=== PATIENT | female | born 1935 | race Caucasian/White ===

== ENCOUNTER 2019-05-30 18:41 | Emergency (ER) | payer MEDICARE, OTHER ==
[~2019-05-30] VITALS: Ht 168 cm; Wt 72.0 kg
--- NOTE | 2019-05-30 18:56 | ED Chest Pain ---
General Chief Complaint: Cardiac/General Problems Stated Complaint: CHEST PAIN Source: patient, EMS Exam Limitations: no limitations History of Present Illness Date Seen by Provider: May 30, 2019 Time Seen by Provider: 18:53 Initial Comments 1 hour prior to arrival patient states she "felt funny". Described feeling flushed sensation in her chest and got hot. Thought maybe her heart rate was fast or irregular, denied chest pain or shortness of air or abdominal pain. Denies nausea vomiting. States she was just getting ready for dinner. On arrival patient states she is feeling better, just a little dizzy from the ambulance ride. Allergies and Home Medications Allergies Coded Allergies: penicillin G (Verified Allergy, Unknown, 05/30/19) Home Medications Potassium Chloride 20 Meq Tablet.er, 20 MEQ PO DAILY Prescribed by: TRINI CLAY on 05/30/191938 Patient Home Medication List Home Medication List Reviewed: Yes Review of Systems Review of Systems Constitutional: see HPI, diaphoresis, dizziness; No fever, No malaise, No weakness, No weight gain, No weight loss Respiratory: No Symptoms Reported, See HPI; Denies Cough, Denies Orthopnea, Denies Shortness of Air, Denies SOA With Exertion, Denies SOA at Rest, Denies Stridor, Denies Wheezing, Denies Other Cardiovascular: See HPI; Denies Chest Pain, Denies Edema; Irregular Heart Rate; Denies Lightheadedness; Palpitations; Denies Syncope Gastrointestinal: No Symptoms Reported, See HPI; Denies Abdominal Pain, Denies Constipated, Denies Diarrhea, Denies Nausea, Denies Vomiting Musculoskeletal: no symptoms reported, see HPI; No back pain, No joint pain Skin: No lesions, No rash Past Gcxuvsp-Ypzbau-Quvkcv Hx Past Med/Social Hx: Reviewed Nursing Past Med/Soc Hx Patient Social History Alcohol Use: Denies Use Recreational Drug Use: No Smoking Status: Never a Smoker 2nd Hand Smoke Exposure: No Physical Abuse: No Sexual Abuse: No Mistreated: No Fear: No Seasonal Allergies Seasonal Allergies: No Past Medical History Respiratory: No Cardiac: Yes Atrial Fibrillation, High Cholesterol, Hypertension Neurological: No Genitourinary: No Gastrointestinal: No Musculoskeletal: No Endocrine: No HEENT: No Cancer: No Psychosocial: No Blood Disorders: No Physical Exam Vital Signs Vital Signs - First Documented 05/30/19 18:43 Temp 36.3 Pulse 104 Resp 15 B/P (MAP) 127/73 (91) Pulse Ox 93 O2 Delivery Room Air Capillary Refill : Height, Weight, BMI Height: '" Weight: lbs. oz. kg; BMI Method: General Appearance: No Apparent Distress, WD/WN Respiratory: Chest Non Tender, Lungs Clear, Normal Breath Sounds, No Accessory Muscle Use, No Respiratory Distress Cardiovascular: Regular Rate, Rhythm, No Edema, No Gallop, No JVD, No Murmur, Normal Peripheral Pulses Gastrointestinal: Normal Bowel Sounds, No Organomegaly, No Pulsatile Mass, Non Tender Extremity: Normal Capillary Refill, Normal Inspection, Normal Range of Motion, Non Tender, No Calf Tenderness, No Pedal Edema Neurologic/Psychiatric: Alert, Oriented x3, Normal Mood/Affect Progress/Results/Core Measures Results/Orders Lab Results Laboratory Tests Test 05/30/19 18:40 Range/Units White Blood Count 9.9 4.3-11.0 10^3/uL Red Blood Count 4.77 4.35-5.85 10^6/uL Hemoglobin 14.7 11.5-16.0 G/DL Hematocrit 45 35-52 % Mean Corpuscular Volume 94 80-99 FL Mean Corpuscular Hemoglobin 31 25-34 PG Mean Corpuscular Hemoglobin Concent 33 32-36 G/DL Red Cell Distribution Width 14.3 10.0-14.5 % Platelet Count 238 130-400 10^3/uL Mean Platelet Volume 11.2 H 7.4-10.4 FL Neutrophils (%) (Auto) 42 42-75 % Lymphocytes (%) (Auto) 42 12-44 % Monocytes (%) (Auto) 13 H 0-12 % Eosinophils (%) (Auto) 3 0-10 % Basophils (%) (Auto) 0 0-10 % Neutrophils # (Auto) 4.1 1.8-7.8 X 10^3 Lymphocytes # (Auto) 4.2 H 1.0-4.0 X 10^3 Monocytes # (Auto) 1.3 H 0.0-1.0 X 10^3 Eosinophils # (Auto) 0.3 0.0-0.3 10^3/uL Basophils # (Auto) 0.0 0.0-0.1 10^3/uL Prothrombin Time 21.9 H 12.2-14.7 SEC INR Comment 1.8 H 0.8-1.4 Sodium Level 136 135-145 MMOL/L Potassium Level 2.8 L 3.6-5.0 MMOL/L Chloride Level 95 L 98-107 MMOL/L Carbon Dioxide Level 25 21-32 MMOL/L Anion Gap 16 H 5-14 MMOL/L Blood Urea Nitrogen 22 H 7-18 MG/DL Creatinine 0.70 0.60-1.30 MG/DL Estimat Glomerular Filtration Rate > 60 BUN/Creatinine Ratio 31 Glucose Level 95 70-105 MG/DL Calcium Level 10.0 8.5-10.1 MG/DL Corrected Calcium 9.8 8.5-10.1 MG/DL Total Bilirubin 0.5 0.1-1.0 MG/DL Aspartate Amino Transf (AST/SGOT) 23 5-34 U/L Alanine Aminotransferase (ALT/SGPT) 11 0-55 U/L Alkaline Phosphatase 89 40-136 U/L Troponin I < 0.30 <0.30 NG/ML Total Protein 7.6 6.4-8.2 GM/DL Albumin 4.3 3.2-4.5 GM/DL My Orders Orders - ROVENSTINE,TRINI L DO Ed Iv/Invasive Line Start (05/30/19 18:52) Cbc With Automated Diff (05/30/19 18:52) Comprehensive Metabolic Panel (05/30/19 18:52) Protime With Inr (05/30/19 18:52) Troponin I (05/30/19 18:52) Chest 1 View Ap/Pa Only (05/30/19 18:52) Ekg Tracing (05/30/19 18:52) Potassium Chloride (Tablet) (K Dur Table (05/30/19 19:30) Medications Given in ED Vital Signs/I&O 05/30/19 05/30/19 18:43 20:08 Temp 36.3 Pulse 104 65 Resp 15 16 B/P (MAP) 127/73 (91) 118/71 Pulse Ox 93 97 O2 Delivery Room Air Room Air Initial ECG Impression Date: May 30, 2019 Initial ECG Impression Time: 19:00 Initial ECG Rate: 69 Initial ECG Rhythm: A Fib/Flutter Initial ECG Impression: Atrial Fibrillation Initial ECG Comparisson: No Previous ECG Available Departure Impression Primary Impression: Atrial fibrillation Qualified Codes: I48.2 - Chronic atrial fibrillation Additional Impressions: Palpitations Hypokalemia Disposition: 01 HOME, SELF-CARE Condition: Improved Departure-Patient Inst. Decision time for Depature: 19:39 Patient Instructions: Hypokalemia, High Potassium Diet, Atrial Fibrillation (DC) Add. Discharge Instructions: All discharge instructions reviewed with patient and/or family. Voiced understanding. Advised to see Primary Care Provider in 1 week to for re-evaluation and to repeat labs chemistry for low K. Scripts Potassium Chloride (K-Tab ER) 20 Meq Tablet.er 20 MEQ PO DAILY, #7 TAB Prov: TRINI CLAY DO 05/30/19 TRINI CLAY DO May 30, 2019 18:56
[2019-05-30 18:59] LABS: BASOPHILS % (AUTO) 0 % (0-10); EOSINOPHILS # (AUTO) 0.3 10^3/uL (0.0-0.3); EOSINOPHILS % (AUTO) 3 % (0-10); HEMATOCRIT 45 % (35-52); HEMOGLOBIN 14.7 G/DL (11.5-16.0); LYMPHOCYTES # (AUTO) 4.2 X 10^3 (1.0-4.0); LYMPHOCYTES % (AUTO) 42 % (12-44); MEAN CORPUSCULAR HEMOGLOBIN 31 PG (25-34); MEAN CORPUSCULAR HGB CONC 33 G/DL (32-36); MEAN CORPUSCULAR VOLUME 94 FL (80-99); MEAN PLATELET VOLUME 11.2 FL (7.4-10.4); MONOCYTES # (AUTO) 1.3 X 10^3 (0.0-1.0); MONOCYTES % (AUTO) 13 % (0-12); NEUTROPHILS # (AUTO) 4.1 X 10^3 (1.8-7.8); NEUTROPHILS % (AUTO) 42 % (42-75); PLATELET COUNT 238 10^3/uL (130-400); RED CELL DISTRIBUTION WIDTH 14.3 % (10.0-14.5); WHITE BLOOD COUNT 9.9 10^3/uL (4.3-11.0)
[2019-05-30 19:12] LABS: ALANINE AMINOTRANSFERASE 11 U/L (0-55); ALBUMIN 4.3 GM/DL (3.2-4.5); ALKALINE PHOSPHATASE 89 U/L (40-136); BILIRUBIN,TOTAL 0.5 MG/DL (0.1-1.0); BUN/CREATININE RATIO 31; CARBON DIOXIDE 25 MMOL/L (21-32); CHLORIDE 95 MMOL/L (98-107); GFR ESTIMATED > 60; GLUCOSE 95 MG/DL (70-105); INR 1.8 (0.8-1.4); POTASSIUM 2.8 MMOL/L (3.6-5.0); PROTHROMBIN TIME PATIENT 21.9 SEC (12.2-14.7); SODIUM 136 MMOL/L (135-145); TOTAL PROTEIN 7.6 GM/DL (6.4-8.2)
--- NOTE | 2019-05-30 19:21 | Diagnostic Imaging Report ---
INDICATION: Chest pain. TECHNIQUE: Single view chest 6:45 PM. CORRELATION STUDY: None FINDINGS: Heart is enlarged with a rounded configuration. Vasculature overall within normal limits. Streaky areas of atelectasis and/r scarring about the left mid to lower lung field. No definitive consolidating infiltrate. No effusion. IMPRESSION: 1. Cardiac enlargement without overt failure. Atelectasis and scarring at the left mid to lower lung field. Dictated by: Dictated on workstation # [id number]
[2019-05-30] MEDS ORDERED: KCL 20 MEQ TAB (K-DUR) PO ONE (19:30)
[2019-05-30] MEDS ORDERED: POTA-53 PO (19:39)
--- NOTE | 2019-05-30 19:49 | NUR ---
PT STATES SHE WAS HUNGRY AND HAD NOT EATEN ALL DAY. WITH PROVIDER APPROVAL, PT GIVEN SANDWICH.
[2019-05-30 20:08] VITALS: BP 118/71
== END 2019-05-30 20:08 | disposition home or self-care (01) ==
LOC: ER FS 18:43
DX: I48.91 Unspecified atrial fibrillation (principal); E87.6 Hypokalemia; I10 Essential (primary) hypertension; E78.00 Pure hypercholesterolemia, unspecified; Z88.0 Allergy status to penicillin
CPT/HCPCS: 36415; 71045; 80053; 84484; 85025; 85610; 93005

== ENCOUNTER 2019-11-20 19:05 | Emergency (ER) | payer MEDICARE, OTHER ==
[~2019-11-20] VITALS: Ht 167.7 cm; Wt 81.3 kg
[~2019-11-20 19:05] MED LIST: POTA-53 PO
[2019-11-20] MEDS ORDERED: NS IV 1000 ML 1,000 ML IV STA ×2 (19:25→20:00)
[2019-11-20] MEDS ORDERED: PANTOPRAZOLE 40 MG (PROTONIX) VIAL IV STA (19:25)
[2019-11-20] MEDS ORDERED: ONDANSETRON 4 MG/2 ML (SDV) Z0FRAN IVP STA ×2 (19:25→20:41)
--- NOTE | 2019-11-20 19:33 | ED GI ---
General Chief Complaint: Abdominal/GI Problems Stated Complaint: STOMACH VIRUS, VOMITING Source of Information: Patient, Family History of Present Illness Date Seen by Provider: Nov 20, 2019 Time Seen by Provider: 19:09 Initial Comments 84-year-old female presenting with complaints of nausea and vomiting since Monday night. She states that she is not kept her description medications down since Monday. She takes blood thinners as well as blood pressure medications for high blood pressure, atrial fibrillation, anticoagulation. She recently had a UTI plan had at least a day of antibiotics left on that. She denies any pain with urination. She denies any diarrhea. She has not been able to drink water without vomiting. She was having trouble even eating crackers. She did not try to contact her doctor or through the clinic. Her family finally brought her into the emergency department this evening. Allergies and Home Medications Allergies Coded Allergies: penicillin G (Verified Allergy, Unknown, 05/30/19) Home Medications Ondansetron 4 Mg Tab.rapdis, 4 MG PO Q6H PRN for NAUSEA/VOMITING Prescribed by: WIN LANDRY on 11/20/192045 Potassium Chloride 20 Meq Tablet.er, 20 MEQ PO DAILY Prescribed by: TRINI CLAY on 05/30/19 193 Patient Home Medication List Home Medication List Reviewed: Yes Review of Systems Review of Systems Constitutional: No chills, No diaphoresis; dizziness (with standing); No fever; malaise, weakness EENTM: No Double Vision, No Nose Congestion Respiratory: Cough (dry) Cardiovascular: Denies Chest Pain Gastrointestinal: Abdominal Pain (mild epigastric); Denies Constipated, Denies Diarrhea; Nausea, Poor Appetite, Poor Fluid Intake, Vomiting Genitourinary: Denies Burning, Denies Discharge, Denies Pain Musculoskeletal: no symptoms reported Skin: no symptoms reported Psychiatric/Neurological: Anxiety Endocrine: No Symptoms Reported Past Qefpzho-Miacxt-Wwkvas Hx Past Med/Social Hx: Reviewed Nursing Past Med/Soc Hx Patient Social History 2nd Hand Smoke Exposure: No Recent Foreign Travel: No Contact w/Someone Who Travel: No Seasonal Allergies Seasonal Allergies: No Past Medical History Surgeries: Yes Gallbladder Respiratory: No Cardiac: Yes Atrial Fibrillation, High Cholesterol, Hypertension Neurological: No Genitourinary: No Gastrointestinal: No Musculoskeletal: No Endocrine: No HEENT: No Cancer: No Psychosocial: No Blood Disorders: No Physical Exam Vital Signs Vital Signs - First Documented 3/11/20 19:10 Temp 36.8 Pulse 93 Resp 18 B/P (MAP) 147/92 (110) Pulse Ox 95 O2 Delivery Room Air Capillary Refill : Height/Weight/BMI Height: '" Weight: lbs. oz. 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 international II-XII nml as tested, no motor/sensory deficits, alert, oriented x 3 Skin: normal color, warm/dry Progress/Results/Core Measures Results/Orders Lab Results Laboratory Tests Test 11/20/19 19:25 Range/Units White Blood Count 10.2 4.3-11.0 10^3/uL Red Blood Count 5.43 4.35-5.85 10^6/uL Hemoglobin 16.7 H 11.5-16.0 G/DL Hematocrit 50 35-52 % Mean Corpuscular Volume 92 80-99 FL Mean Corpuscular Hemoglobin 31 25-34 PG Mean Corpuscular Hemoglobin Concent 34 32-36 G/DL Red Cell Distribution Width 15.3 H 10.0-14.5 % Platelet Count 263 130-400 10^3/uL Mean Platelet Volume 10.9 H 7.4-10.4 FL Neutrophils (%) (Auto) 79 H 42-75 % Lymphocytes (%) (Auto) 14 12-44 % Monocytes (%) (Auto) 7 0-12 % Eosinophils (%) (Auto) 0 0-10 % Basophils (%) (Auto) 0 0-10 % Neutrophils # (Auto) 8.0 H 1.8-7.8 X 10^3 Lymphocytes # (Auto) 1.4 1.0-4.0 X 10^3 Monocytes # (Auto) 0.7 0.0-1.0 X 10^3 Eosinophils # (Auto) 0.0 0.0-0.3 10^3/uL Basophils # (Auto) 0.0 0.0-0.1 10^3/uL Prothrombin Time 19.2 H 12.2-14.7 SEC INR Comment 1.6 H 0.8-1.4 Activated Partial Thromboplast Time 31 24-35 SEC Sodium Level 135 135-145 MMOL/L Potassium Level 3.2 L 3.6-5.0 MMOL/L Chloride Level 94 L 98-107 MMOL/L Carbon Dioxide Level 19 L 21-32 MMOL/L Anion Gap 22 H 5-14 MMOL/L Blood Urea Nitrogen 19 H 7-18 MG/DL Creatinine 0.91 0.60-1.30 MG/DL Estimat Glomerular Filtration Rate 59 BUN/Creatinine Ratio 21 Glucose Level 174 H 70-105 MG/DL Calcium Level 10.5 H 8.5-10.1 MG/DL Corrected Calcium 10.2 H 8.5-10.1 MG/DL Total Bilirubin 1.0 0.1-1.0 MG/DL Aspartate Amino Transf (AST/SGOT) 19 5-34 U/L Alanine Aminotransferase (ALT/SGPT) 11 0-55 U/L Alkaline Phosphatase 86 40-136 U/L Total Protein 7.9 6.4-8.2 GM/DL Albumin 4.4 3.2-4.5 GM/DL Lipase 15 8-78 U/L My Orders Orders - WIN LANDRY MD Comprehensive Metabolic Panel (11/20/19:) Lipase (11/20/19:25) Ua Culture If Indicated (11/20/19:) Ed Iv/Invasive Line Start (11/20/19) Cbc With Automated Diff (11/20/19) Protime With Inr (11/20/19) Partial Thromboplastin Time (11/20/19:) Continuous Ekg Monitoring (11/20/19) Ekg Tracing (11/20/19) Acute Abd Series (11/20/19) Pantoprazole Injection (Protonix Injecti (11/20/19:) Ondansetron Injection (Zofran Injectio (11/20/19:) Ns Iv 1000 Ml (Sodium Chloride 0.9%) (3/11/20 19:25) Ns Iv 1000 Ml (Sodium Chloride 0.9%) (11/20/19 20:00) Metoprolol Tartrate Injection (Lopressor (11/20/19 20:41) Ondansetron Injection (Zofran Injectio (11/20/19 20:41) Rx-Ondansetron Po (Rx-Zofran Po) (11/20/19 20:45) Medications Given in ED Current Medications Medications Dose Ordered Sig/Maranda Route Start Time Stop Time Status Last Admin Dose Admin Ondansetron HCl 4 mg Q6H PRN PO 11/20/19 20:45 11/20/19 21:01 DC 11/20/19 20:59 4 MG Vital Signs/I&O 11/20/19 11/20/19 19:10 20:59 Temp 36.8 36.4 Pulse 93 88 Resp 18 18 B/P (MAP) 147/92 (110) 160/75 Pulse Ox 95 93 O2 Delivery Room Air Room Air 11/21/19 00:00 Intake Total 2000 ml Balance 2000 ml Progress Progress Note #1: Progress Note obtain basic labs and urine when she can provide a sample. acute abdomen series to evaluate bowel gas pattern and amount of stool. Give IV fluids for hydration, Zofran for nausea, Protonix for epigastric tenderness and nausea and vomiting since Monday, so she likely has some gastritis as well. Progress Note #2: Time: 20:14 Progress Note CBC does not show an elevation of WBC count. Coags show her INR is slightly low at 1.6. her chemistry panel shows mild elevation of her glucose to 176. Her Lipase and LFTs are normal. No acute signficant abnormality to account for her n/v. Her Potassium is slightly low to go along with her vomiting. Acute abdomen series shows increased amount of stool but no obstruction or blockage. She has tolerated ice chips here in the ED after treatment. She is getting a 2nd L of NS for hydration and will see if she can give urine specimen. With her not having elevated WBCs, no fever, no significant abdominal pain and tolerating po could have her try zofran and liquid diet at home and advance as tolerated then see pcp. 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 Initial ECG Impression Date: Nov 20, 2019 Initial ECG Impression Time: 19:24 Initial ECG Rate: 108 Initial ECG Rhythm: A Fib/Flutter Initial ECG Impression: Atrial Fibrillation Initial ECG Comparisson: No Previous ECG Available Comment Atrial fibrillation with a heart rate of 108 bpm. LVH with secondary repolarization abnormality. No acute ST elevation. QT interval 335 ms and QTc interval 449 ms. There is no prior tracing available for comparison. Diagnostic Imaging Diagonstic Imaging: Xray Plain Films/CT/US/NM/MRI: abdomen Comments NAME: KRYS ARSHAD [facility] REC#: [id number] PT STATUS: REG ER : 1935 PHYSICIAN: WIN LANDRY MD ADMIT DATE: 11/20/19/ER FS Signed Date of Exam:11/20/19 ACUTE ABD SERIES INDICATION: Patient started getting sick Monday evening, was okay on Monday, weak on Monday, and started vomiting on Monday. Patient stated she was not eating on Monday and Monday. FINDINGS: Upright view of the chest demonstrates the lungs to be clear. The heart size and vascularity are normal. Calcification is present in the aorta. Supine and upright views of the abdomen demonstrate absence of the gallbladder. Scoliosis and degenerative changes are present in the spine. Large amount of stool is seen throughout the colon. IMPRESSION: There is a large amount of stool throughout the colon. Dictated by: Dictated on workstation # [id number] Dict: 11/20/191949 Trans: 11/20/192010 [id number] Interpreted by: KRYSTLE VERDIN MD Electronically signed by: KRYSTLE VERDIN MD 11/20/192010 Departure Impression Primary Impression: Nausea and vomiting Qualified Codes: R11.14 - Bilious vomiting Additional Impressions: Gastritis Qualified Codes: K29.00 - Acute gastritis without bleeding Constipation Qualified Codes: K59.00 - Constipation, unspecified Dehydration Hypokalemia Disposition: HOME, SELF-CARE Condition: Improved Departure-Patient Inst. Decision time for Depature: 20:43 Referrals: ARVIND WEINSTEIN MD NO,LOCAL PHYSICIAN (PCP) Primary Care Physician Patient Instructions: Constipation, Adult (DC), Hypokalemia (DC), Nausea and Vomiting, Adult (DC), Gastritis (DC) Add. Discharge Instructions: Follow a liquid diet for the next 24 hours then advance to bland then regular diet as you tolerate it. Use the dissolving nausea tablets to help keep your stomach settled so you can take your medicines and stay hydrated Check back with Dr. Weinstein and the clinic for continued problems/concerns Return or check with clinic for fever over 101 F, abdominal pain, or uncontrolled vomiting despite having the nausea medicine All discharge instructions reviewed with patient and/or family. Voiced understanding. Scripts Ondansetron (Ondansetron Odt) 4 Mg Tab.rapdis 4 MG PO Q6H PRN for NAUSEA/VOMITING for 2 Days, #8 TAB 0 Refills Prov: WIN LANDRY MD 11/20/19 WIN LANDRY MD Nov 20, 2019 19:33
[2019-11-20 19:45] LABS: BASOPHILS % (AUTO) 0 % (0-10); EOSINOPHILS % (AUTO) 0 % (0-10); HEMATOCRIT 50 % (35-52); HEMOGLOBIN 16.7 G/DL (11.5-16.0); LYMPHOCYTES # (AUTO) 1.4 X 10^3 (1.0-4.0); LYMPHOCYTES % (AUTO) 14 % (12-44); MEAN CORPUSCULAR HEMOGLOBIN 31 PG (25-34); MEAN CORPUSCULAR HGB CONC 34 G/DL (32-36); MEAN CORPUSCULAR VOLUME 92 FL (80-99); MEAN PLATELET VOLUME 10.9 FL (7.4-10.4); MONOCYTES % (AUTO) 7 % (0-12); NEUTROPHILS % (AUTO) 79 % (42-75); PLATELET COUNT 263 10^3/uL (130-400); RED CELL DISTRIBUTION WIDTH 15.3 % (10.0-14.5); WHITE BLOOD COUNT 10.2 10^3/uL (4.3-11.0)
[2019-11-20 19:46] LABS: MONOCYTES # (AUTO) 0.7 X 10^3 (0.0-1.0)
[2019-11-20 20:00] LABS: CALCIUM 10.5 MG/DL (8.5-10.1); CREATININE SERUM 0.91 MG/DL (0.60-1.30); INR 1.6 (0.8-1.4); POTASSIUM 3.2 MMOL/L (3.6-5.0); PROTHROMBIN TIME PATIENT 19.2 SEC (12.2-14.7)
[2019-11-20 20:01] LABS: ALBUMIN 4.4 GM/DL (3.2-4.5); TOTAL PROTEIN 7.9 GM/DL (6.4-8.2)
--- NOTE | 2019-11-20 20:09 | Diagnostic Imaging Report ---
INDICATION: Patient started getting sick Monday evening, was okay on Monday, weak on Monday, and started vomiting on Monday. Patient stated she was not eating on Monday and Monday. FINDINGS: Upright view of the chest demonstrates the lungs to be clear. The heart size and vascularity are normal. Calcification is present in the aorta. Supine and upright views of the abdomen demonstrate absence of the gallbladder. Scoliosis and degenerative changes are present in the spine. Large amount of stool is seen throughout the colon. IMPRESSION: There is a large amount of stool throughout the colon. Dictated by: Dictated on workstation # [id number]
[2019-11-20] MEDS ORDERED: meTOprolol 5 MG/5 ML (LOPRESSOR) VIAL IV STA (20:41)
[2019-11-20] MEDS ORDERED: RX-ONDANSETRON 4 MG ODT (ZOFRAN) PPK #4 PO PRN (20:45)
[2019-11-20] MEDS ORDERED: ONDA4TAB11 PO (20:46)
[2019-11-20 20:59] VITALS: BP 160/75
--- OUTSIDE RECORDS SUMMARY | 2019-11-22 22:23 | XMS REPORT | Continuity of Care Document ---
Author Organization Unknown Address Unknown Phone Unavailable Allergies Active Description Code Type Severity Reaction Onset Reported/Identified Relationship to Patient Clinical Status Yes penicillin G [id number] Drug Allergy Unknown N/A 05/30/2019 Medications There is no data. Problems Date Dx Coded Attending Type Code Diagnosis Diagnosed By 05/30/2019 ROVENSTINE DO, TRINI L Ot E78.00 PURE HYPERCHOLESTEROLEMIA, UNSPECIFIED 05/30/2019 ROVENSTINE DO, TRINI L Ot E87.6 HYPOKALEMIA 05/30/2019 ROVENSTINE DO, TRINI L Ot I10 ESSENTIAL (PRIMARY) HYPERTENSION 05/30/2019 ROVENSTINE DO, TRINI L Ot I48.91 UNSPECIFIED ATRIAL FIBRILLATION 05/30/2019 ROVENSTINE DO, TRINI L Ot R00.2 PALPITATIONS 05/30/2019 ROVENSTINE DO, TRINI L Ot Z88.0 ALLERGY STATUS TO PENICILLIN 06/03/2019 ROVENSTINE DO, TRINI L Ot E78.00 PURE HYPERCHOLESTEROLEMIA, UNSPECIFIED 06/03/2019 ROVENSTINE DO, TRINI L Ot E87.6 HYPOKALEMIA 06/03/2019 ROVENSTINE DO, TRINI L Ot I10 ESSENTIAL (PRIMARY) HYPERTENSION 06/03/2019 ROVENSTINE DO, TRINI L Ot I48.91 UNSPECIFIED ATRIAL FIBRILLATION 06/03/2019 ROVENSTINE DO, TRINI L Ot R00.2 PALPITATIONS 06/03/2019 ROVENSTINE DO, TRINI L Ot Z88.0 ALLERGY STATUS TO PENICILLIN Procedures There is no data. Results Test Result Range CBC w/MANUAL DIFF - 11/05/18 10:54 WHITE BLOOD CELL COUNT 6.5 Thousand/uL 3 .8-10.8 RED BLOOD CELL COUNT 4.83 Million/uL 3.8 0-5.10 HEMOGLOBIN 13.7 g/dL 11.7-15.5 HEMATOCRIT 43.0 % 35.0-45.0 MCV 89.0 fL 80.0-100.0 MCH 28.4 pg 27.0-33.0 MCHC 31.9 g/dL 32.0-36.0 RDW 13.4 % 11.0-15.0 PLATELET COUNT 217 Thousand/uL 140-400 MPV 11.6 fL 7.5-12.5 ABSOLUTE NEUTROPHILS 4115 cells/uL 1500- 7800 ABSOLUTE MONOCYTES 533 cells/uL 200-950 ABSOLUTE EOSINOPHILS 0 cells/uL 15-500 ABSOLUTE BASOPHILS 65 cells/uL 0-200 NEUTROPHILS 63.3 % NRG LYMPHOCYTES 27.5 % NRG MONOCYTES 8.2 % NRG EOSINOPHILS 0 % NRG BASOPHILS 1.0 % NRG ABSOLUTE LYMPHOCYTES 1788 cells/uL 850-3 900 PLATELET ESTIMATION ADEQUATE ADEQUATE CBC MORPHOLOGY NORMAL PT/INR - 11/05/18 10:54 INR 1.9 NRG PT 18.7 sec 9.0-11.5 CBC - 11/19/18 11:02 WHITE BLOOD CELL COUNT 7.6 Thousand/uL 3 .8-10.8 RED BLOOD CELL COUNT 4.99 Million/uL 3.8 0-5.10 HEMOGLOBIN 14.6 g/dL 11.7-15.5 HEMATOCRIT 46.6 % 35.0-45.0 MCV 93.4 fL 80.0-100.0 MCH 29.3 pg 27.0-33.0 MCHC 31.3 g/dL 32.0-36.0 RDW 14.0 % 11.0-15.0 PLATELET COUNT 214 Thousand/uL 140-400 MPV 12.2 fL 7.5-12.5 ABSOLUTE NEUTROPHILS 4864 cells/uL 1500- 7800 ABSOLUTE LYMPHOCYTES 2014 cells/uL 850-3 900 ABSOLUTE MONOCYTES 547 cells/uL 200-950 ABSOLUTE EOSINOPHILS 137 cells/uL 15-500 ABSOLUTE BASOPHILS 38 cells/uL 0-200 NEUTROPHILS 64 % NRG LYMPHOCYTES 26.5 % NRG MONOCYTES 7.2 % NRG EOSINOPHILS 1.8 % NRG BASOPHILS 0.5 % NRG LIPID PANEL - 03/06/19 10:42 CHOLESTEROL, TOTAL 196 mg/dL <200 HDL CHOLESTEROL 53 mg/dL >50 TRIGLYCERIDES 218 mg/dL <150 LDL-CHOLESTEROL 109 mg/dL (calc) NRG CHOL/HDLC RATIO 3.7 (calc) <5.0 NON HDL CHOLESTEROL 143 mg/dL (calc) <13 0 CMP - 03/06/19 10:42 GLUCOSE 102 mg/dL 65-99 UREA NITROGEN (BUN) 18 mg/dL 7-25 CREATININE 0.81 mg/dL 0.60-0.88 eGFR NON-AFR. UZBEK 67 mL/min/1.73m2 > OR = 60 eGFR 78 mL/min/1.73m2 > OR = 60 BUN/CREATININE RATIO NOT APPLICABLE (calc) 6-22 SODIUM 138 mmol/L 135-146 POTASSIUM 3.4 mmol/L 3.5-5.3 CHLORIDE 100 mmol/L 98-110 CARBON DIOXIDE 27 mmol/L 20-32 CALCIUM 9.5 mg/dL 8.6-10.4 PROTEIN, TOTAL 6.8 g/dL 6.1-8.1 ALBUMIN 4.0 g/dL 3.6-5.1 GLOBULIN 2.8 g/dL (calc) 1.9-3.7 ALBUMIN/GLOBULIN RATIO 1.4 (calc) 1.0-2. 5 BILIRUBIN, TOTAL 0.7 mg/dL 0.2-1.2 ALKALINE PHOSPHATASE 71 U/L 33-130 AST 18 U/L 10-35 ALT 10 U/L 6-29 CBC - 03/06/19 10:42 WHITE BLOOD CELL COUNT 7.6 Thousand/uL 3 .8-10.8 RED BLOOD CELL COUNT 4.89 Million/uL 3.8 0-5.10 HEMOGLOBIN 15.2 g/dL 11.7-15.5 HEMATOCRIT 45.3 % 35.0-45.0 MCV 92.6 fL 80.0-100.0 MCH 31.1 pg 27.0-33.0 MCHC 33.6 g/dL 32.0-36.0 RDW 13.7 % 11.0-15.0 PLATELET COUNT 211 Thousand/uL 140-400 MPV 10.6 fL 7.5-12.5 ABSOLUTE NEUTROPHILS 4894 cells/uL 1500- 7800 ABSOLUTE LYMPHOCYTES 1847 cells/uL 850-3 900 ABSOLUTE MONOCYTES 676 cells/uL 200-950 ABSOLUTE EOSINOPHILS 160 cells/uL 15-500 ABSOLUTE BASOPHILS 23 cells/uL 0-200 NEUTROPHILS 64.4 % NRG LYMPHOCYTES 24.3 % NRG MONOCYTES 8.9 % NRG EOSINOPHILS 2.1 % NRG BASOPHILS 0.3 % NRG Complete blood count (CBC) with automate d white blood cell (WBC) differential - 05/30/19 18:40 Blood leukocytes automated count (number/volume) 9.9 10*3/uL 4.3-11.0 Blood erythrocytes automated count (number/volume) 4.77 10*6/uL 4.35-5.85 Venous blood hemoglobin measurement (mass/volume) 14.7 g/dL 11.5-16.0 Blood hematocrit (volume fraction) 45 % 35-52 Automated erythrocyte mean corpuscular volume 94 [ foz_us] 80-99 Automated erythrocyte mean corpuscular h emoglobin (mass per erythrocyte) 31 pg 25-34 Automated erythrocyte mean corpuscular h emoglobin concentration measurement (mass/volume) 33 g/dL 32-36 Automated erythrocyte distribution width ratio 14. 3 % 10.0- 14.5 Automated blood platelet count (count/volume) 238 10*3/uL 130-400 Automated blood platelet mean volume measurement 11.2 [foz_us] 7.4-10.4 Automated blood neutrophils/100 leukocytes 42 % 42-75 Automated blood lymphocytes/100 leukocytes 42 % 12-44 Blood monocytes/100 leukocytes 13 % 0-12 Automated blood eosinophils/100 leukocytes 3 % 0-10 Automated blood basophils/100 leukocytes 0 % 0-10 Blood neutrophils automated count (number/volume) 4.1 10*3 1.8-7.8 Blood lymphocytes automated count (number/volume) 4.2 10*3 1.0-4.0 Blood monocytes automated count (number/volume) 1. 3 10*3 0.0-1.0 Automated eosinophil count 0.3 10*3/uL 0 .0-0.3 Automated blood basophil count (count/volume) 0.0 10*3/uL 0.0-0.1 PT panel in platelet poor plasma by coag ulation assay - 05/30/19 18:40 Prothrombin time (PT) in platelet poor plasma by coagu lation assay 21.9 s 12.2-14.7 INR in platelet poor plasma or blood by coagulation as say 1.8 0.8-1.4 Comprehensive metabolic panel - 05/30/19 18:40 Serum or plasma sodium measurement (moles/volume) 136 mmol/L 135-145 Serum or plasma potassium measurement (moles/volume) 2.8 mmol/L 3.6-5.0 Serum or plasma chloride measurement (moles/volume) 95 mmol/L 98-107 Carbon dioxide 25 mmol/L 21-32 Serum or plasma anion gap determination (moles/volume) 16 mmol/L 5-14 Serum or plasma urea nitrogen measurement (mass/volume ) 22 mg/dL 7-18 Serum or plasma creatinine measurement (mass/volume) 0.70 mg/dL 0.60-1.30 Serum or plasma urea nitrogen/creatinine mass ratio 31 NRG Serum or plasma creatinine measurement w ith calculation of estimated glomerular filtration rate > NRG Serum or plasma glucose measurement (mass/volume) 95 mg/dL 70-105 Serum or plasma calcium measurement (mass/volume) 10.0 mg/dL 8.5-10.1 Serum or plasma total bilirubin measurement (mass/volu me) 0.5 mg/dL 0.1-1.0 Serum or plasma alkaline phosphatase hari surement (enzymatic activity/volume) 89 U/L 40-136 Serum or plasma aspartate aminotransfera se measurement (enzymatic activity/volume) 23 U/L 5-34 Serum or plasma alanine aminotransferase measurement (enzymatic activity/volume) 11 U/L 0-55 Serum or plasma protein measurement (mass/volume) 7.6 g/dL 6.4-8.2 Serum or plasma albumin measurement (mass/volume) 4.3 g/dL 3.2-4.5 CALCIUM CORRECTED 9.8 mg/dL 8.5-10.1 Serum or plasma troponin i.cardiac measu rement (mass/volume) - 05/30/19 18:40 Serum or plasma troponin i.cardiac measurement (mass/v olume) < ng/mL <0.30 BMP - 06/04/19 09:38 GLUCOSE 87 mg/dL 65-99 UREA NITROGEN (BUN) 13 mg/dL 7-25 CREATININE 0.78 mg/dL 0.60-0.88 eGFR NON-AFR. UZBEK 70 mL/min/1.73m2 > OR = 60 eGFR 81 mL/min/1.73m2 > OR = 60 BUN/CREATININE RATIO NOT APPLICABLE (calc) 6-22 SODIUM 137 mmol/L 135-146 POTASSIUM 4.4 mmol/L 3.5-5.3 CHLORIDE 100 mmol/L 98-110 CARBON DIOXIDE 27 mmol/L 20-32 CALCIUM 9.5 mg/dL 8.6-10.4 PT/INR - 06/04/19 09:38 INR 1.8 NRG PT 18.2 sec 9.0-11.5 LIPID PANEL - 10/24/19 11:20 CHOLESTEROL, TOTAL 180 mg/dL <200 HDL CHOLESTEROL 51 mg/dL >50 TRIGLYCERIDES 197 mg/dL <150 LDL-CHOLESTEROL 100 mg/dL (calc) NRG CHOL/HDLC RATIO 3.5 (calc) <5.0 NON HDL CHOLESTEROL 129 mg/dL (calc) <13 0 CMP - 07/04/19 11:20 GLUCOSE 94 mg/dL 65-99 UREA NITROGEN (BUN) 15 mg/dL 7-25 CREATININE 0.82 mg/dL 0.60-0.88 eGFR NON-AFR. UZBEK 66 mL/min/1.73m2 > OR = 60 eGFR 77 mL/min/1.73m2 > OR = 60 BUN/CREATININE RATIO NOT APPLICABLE (calc) 6-22 SODIUM 138 mmol/L 135-146 POTASSIUM 3.8 mmol/L 3.5-5.3 CHLORIDE 100 mmol/L 98-110 CARBON DIOXIDE 28 mmol/L 20-32 CALCIUM 9.6 mg/dL 8.6-10.4 PROTEIN, TOTAL 6.8 g/dL 6.1-8.1 ALBUMIN 3.9 g/dL 3.6-5.1 GLOBULIN 2.9 g/dL (calc) 1.9-3.7 ALBUMIN/GLOBULIN RATIO 1.3 (calc) 1.0-2. 5 BILIRUBIN, TOTAL 0.6 mg/dL 0.2-1.2 ALKALINE PHOSPHATASE 73 U/L 33-130 AST 16 U/L 10-35 ALT 9 U/L 6-29 CBC - 07/04/19 11:20 WHITE BLOOD CELL COUNT 7.7 Thousand/uL 3 .8-10.8 RED BLOOD CELL COUNT 4.68 Million/uL 3.8 0-5.10 HEMOGLOBIN 14.4 g/dL 11.7-15.5 HEMATOCRIT 44.2 % 35.0-45.0 MCV 94.4 fL 80.0-100.0 MCH 30.8 pg 27.0-33.0 MCHC 32.6 g/dL 32.0-36.0 RDW 12.9 % 11.0-15.0 PLATELET COUNT 235 Thousand/uL 140-400 MPV 11.8 fL 7.5-12.5 ABSOLUTE NEUTROPHILS 5067 cells/uL 1500- 7800 ABSOLUTE LYMPHOCYTES 1671 cells/uL 850-3 900 ABSOLUTE MONOCYTES 716 cells/uL 200-950 ABSOLUTE EOSINOPHILS 208 cells/uL 15-500 ABSOLUTE BASOPHILS 39 cells/uL 0-200 NEUTROPHILS 65.8 % NRG LYMPHOCYTES 21.7 % NRG MONOCYTES 9.3 % NRG EOSINOPHILS 2.7 % NRG BASOPHILS 0.5 % NRG PT/INR - 07/04/19 11:20 INR 3.8 NRG PT 37.1 sec 9.0-11.5 CMP - 11/04/19 12:58 GLUCOSE 98 mg/dL 65-99 UREA NITROGEN (BUN) 19 mg/dL 7-25 CREATININE 0.89 mg/dL 0.60-0.88 eGFR NON-AFR. UZBEK 60 mL/min/1.73m2 > OR = 60 eGFR 69 mL/min/1.73m2 > OR = 60 BUN/CREATININE RATIO 21 (calc) 6-22 SODIUM 136 mmol/L 135-146 POTASSIUM 3.8 mmol/L 3.5-5.3 CHLORIDE 99 mmol/L 98-110 CARBON DIOXIDE 29 mmol/L 20-32 CALCIUM 9.6 mg/dL 8.6-10.4 PROTEIN, TOTAL 6.7 g/dL 6.1-8.1 ALBUMIN 4.0 g/dL 3.6-5.1 GLOBULIN 2.7 g/dL (calc) 1.9-3.7 ALBUMIN/GLOBULIN RATIO 1.5 (calc) 1.0-2. 5 BILIRUBIN, TOTAL 0.7 mg/dL 0.2-1.2 ALKALINE PHOSPHATASE 74 U/L 37-153 AST 17 U/L 10-35 ALT 12 U/L 6-29 CBC - 11/04/19 12:58 WHITE BLOOD CELL COUNT 6.8 Thousand/uL 3 .8-10.8 RED BLOOD CELL COUNT 4.76 Million/uL 3.8 0-5.10 HEMOGLOBIN 14.7 g/dL 11.7-15.5 HEMATOCRIT 44.0 % 35.0-45.0 MCV 92.4 fL 80.0-100.0 MCH 30.9 pg 27.0-33.0 MCHC 33.4 g/dL 32.0-36.0 RDW 13.6 % 11.0-15.0 PLATELET COUNT 220 Thousand/uL 140-400 MPV 12.0 fL 7.5-12.5 ABSOLUTE NEUTROPHILS 4400 cells/uL 1500- 7800 ABSOLUTE LYMPHOCYTES 1537 cells/uL 850-3 900 ABSOLUTE MONOCYTES 673 cells/uL 200-950 ABSOLUTE EOSINOPHILS 163 cells/uL 15-500 ABSOLUTE BASOPHILS 27 cells/uL 0-200 NEUTROPHILS 64.7 % NRG LYMPHOCYTES 22.6 % NRG MONOCYTES 9.9 % NRG EOSINOPHILS 2.4 % NRG BASOPHILS 0.4 % NRG CULTURE, URINE - 11/08/19 13:13 CULTURE, URINE, ROUTINE SEE NOTE NRG Complete blood count (CBC) with automate d white blood cell (WBC) differential - 11/20/19 19:25 Blood leukocytes automated count (number/volume) 10.2 10*3/uL 4.3-11.0 Blood erythrocytes automated count (number/volume) 5.43 10*6/uL 4.35-5.85 Venous blood hemoglobin measurement (mass/volume) 16.7 g/dL 11.5-16.0 Blood hematocrit (volume fraction) 50 % 35-52 Automated erythrocyte mean corpuscular volume 92 [ foz_us] 80-99 Automated erythrocyte mean corpuscular h emoglobin (mass per erythrocyte) 31 pg 25-34 Automated erythrocyte mean corpuscular h emoglobin concentration measurement (mass/volume) 34 g/dL 32-36 Automated erythrocyte distribution width ratio 15. 3 % 10.0- 14.5 Automated blood platelet count (count/volume) 263 10*3/uL 130-400 Automated blood platelet mean volume measurement 10.9 [foz_us] 7.4-10.4 Automated blood neutrophils/100 leukocytes 79 % 42-75 Automated blood lymphocytes/100 leukocytes 14 % 12-44 Blood monocytes/100 leukocytes 7 % 0-12 Automated blood eosinophils/100 leukocytes 0 % 0-10 Automated blood basophils/100 leukocytes 0 % 0-10 Blood neutrophils automated count (number/volume) 8.0 10*3 1.8-7.8 Blood lymphocytes automated count (number/volume) 1.4 10*3 1.0-4.0 Blood monocytes automated count (number/volume) 0. 7 10*3 0.0-1.0 Automated eosinophil count 0.0 10*3/uL 0 .0-0.3 Automated blood basophil count (count/volume) 0.0 10*3/uL 0.0-0.1 PT panel in platelet poor plasma by coag ulation assay - 11/20/19 19:25 Prothrombin time (PT) in platelet poor plasma by coagu lation assay 19.2 s 12.2-14.7 INR in platelet poor plasma or blood by coagulation as say 1.6 0.8-1.4 Activated partial thromboplastin time (a PTT) in platelet poor plasma bycoagulation assay - 11/20/19 19:25 Activated partial thromboplastin time (a PTT) in platelet poor plasma bycoagulation assay 31 s 24-35 Comprehensive metabolic panel - 11/20/19 19:25 Serum or plasma sodium measurement (moles/volume) 135 mmol/L 135-145 Serum or plasma potassium measurement (moles/volume) 3.2 mmol/L 3.6-5.0 Serum or plasma chloride measurement (moles/volume) 94 mmol/L 98-107 Carbon dioxide 19 mmol/L 21-32 Serum or plasma anion gap determination (moles/volume) 22 mmol/L 5-14 Serum or plasma urea nitrogen measurement (mass/volume ) 19 mg/dL 7-18 Serum or plasma creatinine measurement (mass/volume) 0.91 mg/dL 0.60-1.30 Serum or plasma urea nitrogen/creatinine mass ratio 21 NRG Serum or plasma creatinine measurement w ith calculation of estimated glomerular filtration rate 59 NRG Serum or plasma glucose measurement (mass/volume) 174 mg/dL 70-105 Serum or plasma calcium measurement (mass/volume) 10.5 mg/dL 8.5-10.1 Serum or plasma total bilirubin measurement (mass/volu me) 1.0 mg/dL 0.1-1.0 Serum or plasma alkaline phosphatase hari surement (enzymatic activity/volume) 86 U/L 40-136 Serum or plasma aspartate aminotransfera se measurement (enzymatic activity/volume) 19 U/L 5-34 Serum or plasma alanine aminotransferase measurement (enzymatic activity/volume) 11 U/L 0-55 Serum or plasma protein measurement (mass/volume) 7.9 g/dL 6.4-8.2 Serum or plasma albumin measurement (mass/volume) 4.4 g/dL 3.2-4.5 CALCIUM CORRECTED 10.2 mg/dL 8.5-10.1 Lipase - 11/20/19 19:25 Lipase 15 U/L 8-78 Encounters ACCT No. Visit Date/Time Discharge Status Pt. Type Provider Facility Loc./Unit Complaint [id number] 11/08/2019 13:00:00 11/08/2019 23:59: 59 [id number] 11/08/2019 13:00:00 Document Registration [id number] 11/04/2019 11:45:00 Document Registration [id number] 07/04/2019 11:15:00 Document Registration [id number] 06/04/2019 08:30:00 Document Registration [id number] 03/06/2019 10:45:00 Document Registration [id number] 11/19/2018 13:00:00 Document Registration [id number] 11/05/2018 11:15:00 Document Registration [id number] 11/20/2019 19:06:00 020 20:52:00 DIS Emergency WIN LANDRY MD [facility] ER FS STOMACH VIRUS, VOMITING [id number] 05/30/2019 18:43:00 019 20:08:00 DIS Emergency TRINI CLAY DO [facility] ER FS CHEST PAIN
== END 2019-11-20 20:52 | disposition home or self-care (01) ==
LOC: EDUNIT# 19:05 → ER FS 19:06
DX: K29.00 Acute gastritis without bleeding (principal); E87.6 Hypokalemia; K59.00 Constipation, unspecified; E86.0 Dehydration; I48.91 Unspecified atrial fibrillation; I10 Essential (primary) hypertension; Z88.0 Allergy status to penicillin
CPT/HCPCS: 36415; 74022; 80053; 83690; 85025; 85610; 85730; 93005

== ENCOUNTER 2020-08-24 19:54 | Emergency (ER) | payer MEDICARE, OTHER ==
[~2020-08-24] VITALS: Ht 167.7 cm; Wt 74.1 kg
[~2020-08-24 19:54] MED LIST changes: +ONDA4TAB11 PO
[2020-08-24 20:06] VITALS: BP 124/87
--- NOTE | 2020-08-24 20:10 | ED Fall/Injury ---
General Chief Complaint: Trauma-Non Activation Stated Complaint: FALL,HIT HEAD Source: patient Exam Limitations: no limitations History of Present Illness Date Seen by Provider: Aug 24, 2020 Time Seen by Provider: 20:08 Initial Comments 85-year-old female presents with hematoma/contusion on her right frontal scalp. Patient reports she was bending over to take at the trash, lost her balance and fell hitting the leg of a table. Patient is on blood thinners. Patient has no hematoma but no other symptoms. Patient presents because she was concerned because she is on blood thinners wanted further evaluation Allergies and Home Medications Allergies Coded Allergies: penicillin G (Verified Allergy, Unknown, 05/30/19) Home Medications Ondansetron 4 Mg Tab.rapdis, 4 MG PO Q6H PRN for NAUSEA/VOMITING Prescribed by: WIN LANDRY on 11/20/192045 Potassium Chloride 20 Meq Tablet.er, 20 MEQ PO DAILY Prescribed by: TRINI CLAY on 05/30/191938 Patient Home Medication List Home Medication List Reviewed: Yes Review of Systems Review of Systems Constitutional: no symptoms reported; No chills, No fever Eyes: No Symptoms Reported Ears, Nose, Mouth, Throat: no symptoms reported Respiratory: no symptoms reported Cardiovascular: no symptoms reported Gastrointestinal: no symptoms reported Genitourinary: no symptoms reported Musculoskeletal: no symptoms reported Skin: see HPI Psychiatric/Neurological: No Symptoms Reported Past Qhotftm-Jomrjw-Mioagq Hx Past Med/Social Hx: Reviewed Nursing Past Med/Soc Hx Patient Social History Alcohol Use: Denies Use Recreational Drug Use: No Smoking Status: Never a Smoker 2nd Hand Smoke Exposure: No Recent Foreign Travel: No Contact w/Someone Who Travel: No Recent Hopitalizations: No Physical Abuse: No Sexual Abuse: No Mistreated: No Fear: No Seasonal Allergies Seasonal Allergies: No Past Medical History Surgeries: Yes Gallbladder Respiratory: No Cardiac: Yes Atrial Fibrillation, High Cholesterol, Hypertension Neurological: No Genitourinary: No Gastrointestinal: No Musculoskeletal: No Endocrine: No HEENT: No Cancer: No Psychosocial: No Integumentary: No Blood Disorders: No Physical Exam Vital Signs Vital Signs - First Documented 08/24/20 20:06 Temp 36.6 Pulse 62 Resp 16 B/P (MAP) 124/87 (99) O2 Delivery Room Air Capillary Refill : Height, Weight, BMI Height: '" Weight: lbs. oz. kg; 28.00 BMI Method: General Appearance: WD/WN, no apparent distress HEENT: PERRL/EOMI, pharynx normal Neck: full range of motion, supple Cardiovascular: normal peripheral pulses, regular rate, rhythm Respiratory: lungs clear, normal breath sounds Peripheral Pulses: 2+ Radial Pulses (R), 2+ Radial Pulses (L) Gastrointestinal: non tender, soft Extremities: normal range of motion, non-tender Neurologic/Psychiatric: alert, normal mood/affect, oriented x 3 Skin: other (hematoma/contusion right frontal scalp) Ruma Coma Score Best Eye Response: (4) Open Spontaneously Best Verbal Response: (5) Oriented Best Motor Response: (6) Obeys Commands Progress/Results/Core Measures Results/Orders My Orders Orders - JASWINDER FLORES DO Ct Head Wo (08/24/20 20:10) Vital Signs/I&O 08/24/20 20:06 Temp 36.6 Pulse 62 Resp 16 B/P (MAP) 124/87 (99) O2 Delivery Room Air Progress Progress Note : Time: 20:42 Progress Note Patient with no signs of intercranial abnormality. Discussed with patient findings of possible sinusitis, patient with no signs or symptoms. Patient stable will be discharged home Diagnostic Imaging Diagonstic Imaging: CT Plain Films/CT/US/NM/MRI: head Comments [facility] [place] [place] NAME: KRYS ARSHAD [facility] REC#: [id number] PT STATUS: REG ER : 1935 PHYSICIAN: JASWINDER FLORES DO ADMIT DATE: 08/24/20/ER FS Draft Date of Exam:08/24/20 CT HEAD WO INDICATION: Fall. Bruising to the right forehead TECHNIQUE: Routine non contrast-enhanced axial images were obtained from the skull base to the vertex. Auto Exposure Controls were utilized during the CT exam to meet ALARA standards for radiation dose reduction COMPARISON: None. FINDINGS: The ventricles and cortical sulci are diffusely prominent, compatible with age-related volume loss. There are confluent areas of abnormal, low attenuation in the periventricular white matter. This is consistent with small vessel ischemic changes; age-indeterminate. There is no prior study available for comparison. There is no midline shift or mass-effect. No acute intra-axial hemorrhage is seen. There are no abnormal areas of increased or decreased density to suggest acute hemorrhage or edema. No extra-axial masses or collections are present. Soft tissue hematoma is noted anterolaterally on the right. The underlying bony calvarium is intact. The visualized paranasal sinuses show an air-fluid level in the left sphenoid sinus. The mastoid air cells are clear. IMPRESSION: 1. No acute intracranial abnormality. No CT evidence of mass, acute infarct or intracranial hemorrhage. 2. Small vessel ischemic changes in the periventricular and subcortical white matter; likely chronic. 3. Paranasal sinus disease as described above. Correlation with sinusitis is recommended. Reviewed: Reviewed by Me, Reviewed/Discussed Departure Impression Primary Impression: Fall Qualified Codes: W19.XXXA - Unspecified fall, initial encounter Additional Impression: Contusion of scalp Qualified Codes: S00.03XA - Contusion of scalp, initial encounter Disposition: 01 HOME, SELF-CARE Condition: Stable Departure-Patient Inst. Referrals: ARVIND WEINSTEIN MD (PCP/Family) Primary Care Physician Patient Instructions: Minor Head Injury, Adult ED Add. Discharge Instructions: Follow-up with your primary care provider as needed All discharge instructions reviewed with patient and/or family. Voiced understanding. JASWINDER FLORES DO Aug 24, 2020 20:10
--- NOTE | 2020-08-24 20:33 | Diagnostic Imaging Report ---
INDICATION: Fall. Bruising to the right forehead TECHNIQUE: Routine non contrast-enhanced axial images were obtained from the skull base to the vertex. Auto Exposure Controls were utilized during the CT exam to meet ALARA standards for radiation dose reduction COMPARISON: None. FINDINGS: The ventricles and cortical sulci are diffusely prominent, compatible with age-related volume loss. There are confluent areas of abnormal, low attenuation in the periventricular white matter. This is consistent with small vessel ischemic changes; age-indeterminate. There is no prior study available for comparison. There is no midline shift or mass-effect. No acute intra-axial hemorrhage is seen. There are no abnormal areas of increased or decreased density to suggest acute hemorrhage or edema. No extra-axial masses or collections are present. Soft tissue hematoma is noted anterolaterally on the right. The underlying bony calvarium is intact. The visualized paranasal sinuses show an air-fluid level in the left sphenoid sinus. The mastoid air cells are clear. IMPRESSION: 1. No acute intracranial abnormality. No CT evidence of mass, acute infarct or intracranial hemorrhage. 2. Small vessel ischemic changes in the periventricular and subcortical white matter; likely chronic. 3. Paranasal sinus disease as described above. Correlation with sinusitis is recommended. Dictated by: Dictated on workstation # [id number]
== END 2020-08-24 20:49 | disposition home or self-care (01) ==
LOC: EDUNIT# 19:54 → ER FS 19:56
DX: S00.03XA Contusion of scalp, initial encounter (principal); Z88.0 Allergy status to penicillin; W22.8XXA Striking against or struck by other objects, initial encounter
CPT/HCPCS: 70450

== ENCOUNTER → 2020-11-18 | Outpatient (CLI) | payer MEDICARE, OTHER | LOC: CARD 13:13 | PROVIDERS: ATTEND Family Medicine | DX: I08.1 Rheumatic disorders of both mitral and tricuspid valves (principal) | CPT/HCPCS: 93306 ==

== ENCOUNTER 2022-11-04 19:20 | Inpatient (IN) | payer MEDICARE, OTHER ==
[~2022-11-04] VITALS: Ht 167.7 cm; Wt 76.0 kg
--- NOTE | 2022-11-04 19:27 | ED General ---
General Stated Complaint: ALTERED MENTAL STATUS History of Present Illness Date Seen by Provider: Nov 04, 2022 Time Seen by Provider: 19:27 Initial Comments 87-year-old female with PMH of A-fib on Coumadin with a pacemaker, is brought in by her family with complaints of altered mental status which began last night. Patient has been confused off and on since then. Patient states that she feels tired and has been feeling confused throughout the day. In the ER she is alert and oriented x3 and able to answer all questions and follow all commands without any difficulty. Denies dysuria, hematuria, fever and chills, abdominal pain, nausea and vomiting, chest pain, palpitations, shortness of breath. No known sick contacts. Patient uses a walker as baseline at home. Allergies and Home Medications Allergies Coded Allergies: penicillin G (Verified Allergy, Unknown, 05/30/19) Patient Home Medication List Home Medication List Reviewed: Yes Ondansetron (Ondansetron Odt) 4 Mg Tab.rapdis, 4 MG PO Q6H PRN for NAUSEA/VOMITING Prescribed by: WIN LANDRY on 11/20/192045 Potassium Chloride (K-Tab ER) 20 Meq Tablet.er, 20 MEQ PO DAILY Prescribed by: TRINI CLAY on 05/30/191938 Review of Systems Review of Systems Constitutional: malaise EENTM: no symptoms reported Respiratory: no symptoms reported Cardiovascular: no symptoms reported Gastrointestinal: no symptoms reported Genitourinary: no symptoms reported Musculoskeletal: no symptoms reported Skin: no symptoms reported Psychiatric/Neurological: Other Hematologic/Lymphatic: No Symptoms Reported Immunological/Allergic: no symptoms reported Past Cwvmhjt-Hvfrgi-Ykkrbk Hx Seasonal Allergies Seasonal Allergies: No Past Medical History Surgeries: Yes Gallbladder Respiratory: No Cardiac: Yes Atrial Fibrillation, High Cholesterol, Hypertension Neurological: No Genitourinary: No Gastrointestinal: No Musculoskeletal: No Endocrine: No HEENT: No Cancer: No Psychosocial: No Integumentary: No Blood Disorders: No Physical Exam Vital Signs Vital Signs - First Documented 11/04/22 19:24 Temp 37.3 Pulse 94 Resp 20 B/P (MAP) 155/103 (120) Pulse Ox 95 O2 Delivery Room Air Capillary Refill : Height, Weight, BMI Height: '" Weight: lbs. oz. kg; 26.00 BMI Method: General Appearance: No Apparent Distress, WD/WN HEENT: PERRL/EOMI Neck: Full Range of Motion, Normal Inspection, Non Tender Respiratory: Chest Non Tender, Lungs Clear, Normal Breath Sounds, No Accessory Muscle Use Cardiovascular: No Edema, Normal Peripheral Pulses, Irregularly Irregular, Tachycardia Gastrointestinal: Normal Bowel Sounds, Non Tender, Soft Back: Normal Inspection Extremity: Normal Range of Motion Neurologic/Psychiatric: Alert, Oriented x3, No Motor/Sensory Deficits, Normal Mood/Affect, drill runner helper II-XII Norm as Tested Skin: Normal Color Lymphatic: No Adenopathy Progress/Results/Core Measures Suspected Sepsis SIRS Temperature: Pulse: Respiratory Rate: Laboratory Tests 11/04/22 19:33: White Blood Count 14.9H Blood Pressure / Mean: Laboratory Tests 11/04/22 19:33: Creatinine 0.92, INR Comment 3.6H, Platelet Count 186, Total Bilirubin 0.9 Results/Orders Lab Results Laboratory Tests Test 11/04/22 19:33 11/04/22 21:32 11/04/22 21:36 Range/Units White Blood Count 14.9 H 4.3-11.0 10^3/uL Red Blood Count 4.96 3.80-5.11 10^6/uL Hemoglobin 15.5 11.5-16.0 g/dL Hematocrit 46 35-52 % Mean Corpuscular Volume 94 80-99 fL Mean Corpuscular Hemoglobin 31 25-34 pg Mean Corpuscular Hemoglobin Concent 33 32-36 g/dL Red Cell Distribution Width 13.7 10.0-14.5 % Platelet Count 186 130-400 10^3/uL Mean Platelet Volume 11.7 9.0-12.2 fL Immature Granulocyte % (Auto) 1 % Neutrophils (%) (Auto) 83 H 42-75 % Lymphocytes (%) (Auto) 7 L 12-44 % Monocytes (%) (Auto) 9 0-12 % Eosinophils (%) (Auto) 0 0-10 % Basophils (%) (Auto) 0 0-10 % Neutrophils # (Auto) 12.4 H 1.8-7.8 10^3/uL Lymphocytes # (Auto) 1.1 1.0-4.0 10^3/uL Monocytes # (Auto) 1.4 H 0.0-1.0 10^3/uL Eosinophils # (Auto) 0.0 0.0-0.3 10^3/uL Basophils # (Auto) 0.0 0.0-0.1 10^3/uL Immature Granulocyte # (Auto) 0.1 0.0-0.1 10^3/uL Neutrophils % (Manual) 84 % Lymphocytes % (Manual) 11 % Monocytes % (Manual) 5 % Prothrombin Time 36.1 H 12.2-14.7 SEC INR Comment 3.6 H 0.8-1.4 Activated Partial Thromboplast Time 54 H 24-35 SEC D-Dimer 0.85 H 0.00-0.49 UG/ML Sodium Level 129 L 135-145 MMOL/L Potassium Level 3.1 L 3.6-5.0 MMOL/L Chloride Level 88 L 98-107 MMOL/L Carbon Dioxide Level 23 21-32 MMOL/L Anion Gap 18 H 5-14 MMOL/L Blood Urea Nitrogen 25 H 7-18 MG/DL Creatinine 0.92 0.60-1.30 MG/DL Estimat Glomerular Filtration Rate 61 BUN/Creatinine Ratio 27 Glucose Level 118 H 70-105 MG/DL Calcium Level 9.7 8.5-10.1 MG/DL Corrected Calcium 9.7 8.5-10.1 MG/DL Magnesium Level 1.6 1.6-2.4 MG/DL Total Bilirubin 0.9 0.1-1.0 MG/DL Aspartate Amino Transf (AST/SGOT) 30 5-34 U/L Alanine Aminotransferase (ALT/SGPT) 14 0-55 U/L Alkaline Phosphatase 103 40-136 U/L Troponin I < 0.30 <0.30 NG/ML Pro-B-Type Natriuretic Peptide 3692.0 H <450.0 PG/ML Total Protein 7.7 6.4-8.2 GM/DL Albumin 4.0 3.2-4.5 GM/DL Urine Color YELLOW Urine Clarity CLOUDY Urine pH 5.5 5-9 Urine Specific [place] 1.025 H 1.016-1.022 Urine Protein 2+ H NEGATIVE Urine Glucose (UA) NEGATIVE NEGATIVE Urine Ketones NEGATIVE NEGATIVE Urine Nitrite NEGATIVE NEGATIVE Urine Bilirubin NEGATIVE NEGATIVE Urine Urobilinogen 1.0 < = 1.0 MG/DL Urine Leukocyte Esterase 3+ H NEGATIVE Urine RBC (Auto) 2+ H NEGATIVE Urine RBC NONE /HPF Urine WBC TNTC H /HPF Urine Crystals NONE /LPF Urine Bacteria LARGE H /HPF Urine Casts NONE /LPF Urine Mucus NEGATIVE /LPF Urine Culture Indicated YES Influenza Type A (RT-PCR) Not Detected Not Detecte Influenza Type B (RT-PCR) Not Detected Not Detecte SARS-CoV-2 RNA (RT-PCR) Not Detected Not Detecte My Orders Orders - DESHAWN ALVAREZ MD Ua Culture If Indicated (11/04/22 19:23) Chest 1 View Ap/Pa Only (11/04/22 19:27) Cbc With Automated Diff (11/04/22 19:28) Comprehensive Metabolic Panel (11/04/22 19:28) Fibrin Degradation Products (11/04/22 19:28) Magnesium (11/04/22 19:28) Protime With Inr (11/04/22 19:28) Partial Thromboplastin Time (11/04/22 19:28) Probnp Fs (11/04/22 19:28) Troponin I Fs (11/04/22 19:28) Diltiazem Injection (Cardizem Injection) (11/04/22 20:00) Diltiazem Drip Pre-Mix (Cardizem Drip Pr (11/04/22 19:46) Ct Head Wo (11/04/22 19:47) Manual Differential (11/04/22 19:33) Monitor-Rhythm Ecg Trace Only (11/04/22 19:50) Ekg Tracing (11/04/22 19:52) Ed Iv/Invasive Line Start (11/04/22 20:21) Ed Iv/Invasive Line Start (11/04/22 21:22) Covid 19 Inhouse Test (11/04/22 21:24) Influenza A And B By Pcr (11/04/22 21:24) Potassium Chloride (Tablet) (K Dur Table (11/04/22 21:45) Urine Culture (11/04/22 21:32) Medications Given in ED Current Medications Medications Dose Ordered Sig/Maranda Route Start Time Stop Time Status Last Admin Dose Admin Diltiazem HCl 5 mg ONCE ONCE IVP 11/04/22 20:00 11/04/22 20:01 DC 11/04/22 20:13 5 MG Vital Signs/I&O 11/04/22 11/04/22 11/04/22 19:24 20:13 20:14 Temp 37.3 Pulse 94 115 110 Resp 20 B/P (MAP) 155/103 (120) 155/79 155/79 Pulse Ox 95 O2 Delivery Room Air Capillary Refill : Progress Note : Progress Note 1. AMS: - CT HEAD: no acute findings - CXR: no acute findings - CBC/ CMP: white count is 14.9 with a left shift due to UTI - COVID test/ Rapid Flu Test: negative 2. ACUTE CYSTITIS: - UA is positive for leukocyte esterase - Ceftriaxone 1gm iv STAT in ER -This was likely contributor to the AMS 3. A-FIB WITH RVR: - EKG: Paced, nonischemic - Troponin undetected -Cardizem bolus 5 mg IV and drip started with improvement and rate control with stable BP - BNP is elevated to 3,692, would benefit from ECHO. Pt is not on Lasix at home. -Will admit patient to ICU, will need cardiology consult and e-ICU consult. Hospitalist has accepted. 4. HYPOKALEMIA: - s. K is 3.1 - Oral potassium 40mEq STAT given in ER 5. HYPONATREMIA: - NS IVF 250/hr 6. ELEVATED D-DIMER: - D-dimer is 0.85 - Pt is already on Coumadin Diagnostic Imaging Diagonstic Imaging: Xray, CT Plain Films/CT/US/NM/MRI: chest, head Comments [facility] [place], [place] NAME: KRYS ARSHAD [facility] REC#: [id number] PT STATUS: REG ER : 1935 PHYSICIAN: DESHAWN ALVAREZ MD ADMIT DATE: 11/04/22/ER FS Draft Date of Exam:11/04/22 CHEST 1 VIEW AP/PA ONLY EXAM: Chest 1 view AP/PA only INDICATION: Altered mental status. Cough. COMPARISON: 05/30/2019. FINDINGS: Cardiomegaly with mild pulmonary vascular congestion is stable. Stable linear scarring in the left midlung. The lungs are otherwise clear. No pleural effusion or pneumothorax. No acute osseous finding. IMPRESSION: No acute cardiopulmonary finding. Stable mild cardiomegaly and pulmonary vascular congestion. Dictated on workstation # [id number] Dict: 11/04/222006 Trans: 11/04/222008 E [id number] Interpreted by: OLIVIA VALERA MD Electronically signed by: [facility] [place], [place] NAME: KRYS ARSHAD [facility] REC#: [id number] PT STATUS: REG ER : 1935 PHYSICIAN: DESHAWN ALVAREZ MD ADMIT DATE: 11/04/22/ER FS Draft Date of Exam:11/04/22 CT HEAD WO PROCEDURE: CT head without contrast. TECHNIQUE: Multiple contiguous axial images were obtained through the brain without the use of intravenous contrast. Auto Exposure Controls were utilized during the CT exam to meet ALARA standards for radiation dose reduction. INDICATION: Altered mental status. COMPARISON: CT head without contrast 08/24/2020. FINDINGS: Mild to moderate generalized parenchymal volume loss. Moderate leukoaraiosis. No intracranial hemorrhage, mass effect, hydrocephalus or extra-axial fluid collection. No CT evidence for territorial infarction. Osseous structures are intact. Paranasal sinuses and mastoids are clear. IMPRESSION: No acute intracranial CT finding. Dictated on workstation # [id number] Dict: 11/04/222012 Trans: 11/04/222015 PJE [id number] Interpreted by: OLIVIA VALERA MD Electronically signed by: Departure Communication (Admissions) Time/Spoke to Admitting Phy: 22:20 James with hospitalist, Dr. Melendrez, and accepted to ICU for admission Impression Primary Impression: AMS (altered mental status) Additional Impressions: Atrial fibrillation with RVR Acute cystitis with hematuria Hypokalemia Hyponatremia Elevated d-dimer Disposition: 30 STILL A PATIENT Condition: Stable Admissions Decision to Admit Reason: Admit from ER (General) Decision to Admit/Date: Nov 04, 2022 Time/Decision to Admit Time: 22:15 Transfer Method of Transfer: EMS Departure-Patient Inst. Referrals: ARVIND WEINSTEIN MD (PCP/Family) Primary Care Physician DESHAWN ALVAREZ MD Nov 04, 2022 19:27
[2022-11-04 19:46] LABS: BASOPHILS % (AUTO) 0 % (0-10); EOSINOPHILS % (AUTO) 0 % (0-10); HEMATOCRIT 46 % (35-52); HEMOGLOBIN 15.5 g/dL (11.5-16.0); LYMPHOCYTES # (AUTO) 1.1 10^3/uL (1.0-4.0); LYMPHOCYTES % (AUTO) 7 % (12-44); MEAN CORPUSCULAR HEMOGLOBIN 31 pg (25-34); MEAN CORPUSCULAR HGB CONC 33 g/dL (32-36); MEAN CORPUSCULAR VOLUME 94 fL (80-99); MEAN PLATELET VOLUME 11.7 fL (9.0-12.2); MONOCYTES # (AUTO) 1.4 10^3/uL (0.0-1.0); MONOCYTES % (AUTO) 9 % (0-12); NEUTROPHILS # (AUTO) 12.4 10^3/uL (1.8-7.8); NEUTROPHILS % (AUTO) 83 % (42-75); PLATELET COUNT 186 10^3/uL (130-400); WHITE BLOOD COUNT 14.9 10^3/uL (4.3-11.0)
[2022-11-04] MEDS ORDERED: dilTIAZem DRIP PRE-MIX 125 ML IV STA (19:46)
[2022-11-04 20:05] LABS: INR 3.6 (0.8-1.4); PROTHROMBIN TIME PATIENT 36.1 SEC (12.2-14.7)
[2022-11-04 20:06] LABS: FIBRIN DEGRADATION PRODUCTS 0.85 UG/ML (0.00-0.49)
--- NOTE | 2022-11-04 20:10 | Diagnostic Imaging Report ---
EXAM: Chest 1 view AP/PA only INDICATION: Altered mental status. Cough. COMPARISON: 05/30/2019. FINDINGS: Cardiomegaly with mild pulmonary vascular congestion is stable. Stable linear scarring in the left midlung. The lungs are otherwise clear. No pleural effusion or pneumothorax. No acute osseous finding. IMPRESSION: No acute cardiopulmonary finding. Stable mild cardiomegaly and pulmonary vascular congestion. Dictated by: Dictated on workstation # [id number]
[2022-11-04 20:13] LABS: ALANINE AMINOTRANSFERASE 14 U/L (0-55); ALKALINE PHOSPHATASE 103 U/L (40-136); BILIRUBIN,TOTAL 0.9 MG/DL (0.1-1.0); BUN/CREATININE RATIO 27; CALCIUM 9.7 MG/DL (8.5-10.1); CARBON DIOXIDE 23 MMOL/L (21-32); CHLORIDE 88 MMOL/L (98-107); CREATININE SERUM 0.92 MG/DL (0.60-1.30); GFR ESTIMATED 61; GLUCOSE 118 MG/DL (70-105); MAGNESIUM 1.6 MG/DL (1.6-2.4); POTASSIUM 3.1 MMOL/L (3.6-5.0); SODIUM 129 MMOL/L (135-145); TOTAL PROTEIN 7.7 GM/DL (6.4-8.2)
--- NOTE | 2022-11-04 20:16 | Diagnostic Imaging Report ---
PROCEDURE: CT head without contrast. TECHNIQUE: Multiple contiguous axial images were obtained through the brain without the use of intravenous contrast. Auto Exposure Controls were utilized during the CT exam to meet ALARA standards for radiation dose reduction. INDICATION: Altered mental status. COMPARISON: CT head without contrast 08/24/2020. FINDINGS: Mild to moderate generalized parenchymal volume loss. Moderate leukoaraiosis. No intracranial hemorrhage, mass effect, hydrocephalus or extra-axial fluid collection. No CT evidence for territorial infarction. Osseous structures are intact. Paranasal sinuses and mastoids are clear. IMPRESSION: No acute intracranial CT finding. Dictated by: Dictated on workstation # [id number]
[2022-11-04 20:27] LABS: LYMPHOCYTES % (MANUAL) 11 %; MONOCYTES % (MANUAL) 5 %; NEUTROPHILS % (MANUAL) 84 %
[2022-11-04] MEDS ORDERED: NS IV 1000 ML 1,000 ML IV STA (21:22)
[2022-11-04] MEDS ORDERED: POTASSIUM CL 10MEQ/50ML IVPB 50 ML IV STA (21:22)
[2022-11-04] MEDS ORDERED: KCL 20 MEQ TAB (K-DUR) PO ONE (21:45)
[2022-11-04 22:57] LABS: BACTERIA,URINE LARGE /HPF; BILIRUBIN,URINE NEGATIVE (NEGATIVE); CLARITY,URINE CLOUDY; COLOR,URINE YELLOW; GLUCOSE, URINE (UA) NEGATIVE (NEGATIVE); KETONES,URINE NEGATIVE (NEGATIVE); LEUKOCYTE ESTERASE ,URINE 3+ (NEGATIVE); NITRITE,URINE NEGATIVE (NEGATIVE); PH,URINE 5.5 (5-9); PROTEIN,URINE 2+ (NEGATIVE); WBC,URINE TNTC /HPF
[2022-11-04] MEDS ORDERED: cefTRIAXone 1 GM PRE-MIX 50 ML IV STA (23:09)
[2022-11-05] MEDS ORDERED: NS IV 1000 ML 1,000 ML IV SCH ×2 (01:00→03:30)
[2022-11-05] MEDS ORDERED: ACETAMINOPHEN 325 MG TABLET PO PRN ×2 (01:00→06:00)
[2022-11-05 01:21] VITALS: BP 155/103
[2022-11-05] MEDS: POTASSIUM CL 10MEQ/50ML IVPB 50 ML IV SCH ×2 (02:36→03:41)
[2022-11-05] MEDS: MAGNESIUM 1 GM/100 ML IVPB 100 ML IV SCH ×2 (02:43→03:41)
--- NOTE | 2022-11-05 03:42 | Tele-ICU Progress Note ---
Progress Note eICU Brief Progress note 87 yo woman admitted from [facility] for c/c AMS for previous 1-2 days with confusion, though was alert and oriented in ED. In ED, hypertensive, low grade fever, and acute atrial fibrillation with tachycardia for which she was treated with cardizem PMHx atrial fibrillation on Coumadin, hx pacemaker, ECHO 2020 EF 55-60%, PA sys pressure 40-45- today's BNP 3692 CXR read- CMG, no acute cardiopulmonary findings. CT Head: FINDINGS: Mild to moderate generalized parenchymal volume loss. Moderate leukoaraiosis. No intracranial hemorrhage, mass effect, hydrocephalus or extra-axial fluid collection. No CT evidence for territorial infarction. Osseous structures are intact. Paranasal sinuses and mastoids are clear. Additional labs: COVID , FLU Neg UA cloudy large wbcs, + leukocyte esterase, large bacteria CBC WBCs 14,900 Hgb 15.5 Plts 186,000 Ddimer 0.85 PTT 54 PT 35.1/INR 3.6 Na 129 K 3.1 Cl 88 Bicarb 23 Mg 1.6 BUN 25 Cr 0.9 LFTs nl By video - pt resting. HR 75-80s atrial fibrillaion on cardizem drip, sats 93% on RA, BP 145/84 A: AMS likely related to concurrent urosepsis, Atrial fibrillation, Hypokalemia, hypomagnesemia P: Urosepsis under treatment with ceftriaxone, IVF NS KDur was given in ED, will add KCL rider now and Mg Sulfate rider- AM labs already ordered. Add INR also to determine when coumadin should be restarted. Is maintained on cardizem drip currently- Will decrease IV NS to KVO 40 mls/hr- diet was already ordered for AM, Focused Exam Height, Weight, BMI Height: '" Weight: lbs. oz. kg; 26.88 BMI Method: RICHARD RUIZ DO Nov 05, 2022 03:42
[2022-11-05 04:57] LABS: PROTHROMBIN TIME PATIENT 39.5 SEC (12.2-14.7)
[2022-11-05 05:08] LABS: ALBUMIN 3.2 GM/DL (3.2-4.5); BILIRUBIN,TOTAL 0.7 MG/DL (0.1-1.0); CALCIUM 9.4 MG/DL (8.5-10.1); CREATININE SERUM 0.87 MG/DL (0.60-1.30); MAGNESIUM 2.2 MG/DL (1.6-2.4); PHOSPHORUS 2.5 MG/DL (2.3-4.7); POTASSIUM 3.1 MMOL/L (3.6-5.0); TOTAL PROTEIN 6.3 GM/DL (6.4-8.2)
[2022-11-05] MEDS ORDERED: NS IV 500 ML 500 ML IV PRN (05:15)
[2022-11-05 05:27] LABS: BASOPHILS % (AUTO) 0 % (0-10); EOSINOPHILS % (AUTO) 0 % (0-10); HEMATOCRIT 39 % (35-52); HEMOGLOBIN 13.3 g/dL (11.5-16.0); LYMPHOCYTES # (AUTO) 0.9 10^3/uL (1.0-4.0); LYMPHOCYTES % (AUTO) 8 % (12-44); MEAN CORPUSCULAR HEMOGLOBIN 32 pg (25-34); MEAN CORPUSCULAR HGB CONC 34 g/dL (32-36); MEAN CORPUSCULAR VOLUME 92 fL (80-99); MEAN PLATELET VOLUME 12.7 fL (9.0-12.2); MONOCYTES # (AUTO) 1.2 10^3/uL (0.0-1.0); MONOCYTES % (AUTO) 10 % (0-12); NEUTROPHILS # (AUTO) 9.5 10^3/uL (1.8-7.8); NEUTROPHILS % (AUTO) 82 % (42-75); PLATELET COUNT 200 10^3/uL (130-400); WHITE BLOOD COUNT 11.6 10^3/uL (4.3-11.0)
--- NOTE | 2022-11-05 05:58 | History & Physical-Hospitalist ---
History of Present Illness HPI/Chief Complaint CC: AF RVR HPI: This is an 87yoWF clinic pt of Dr Durbin who has h/o AF who presented to the [facility] ER with AF RVR. UTI was also dx. Rocephin initiated empirically. Patient appears to be weak and will need close monitoring for any decompensation. Cardiology will be consulted. Source: patient Exam Limitations: no limitations Date Seen 11/05/22 Time Seen by a Provider: 11:00 Attending Physician Pradeep Durbin MD PCP Admitting Physician: Lu Melendrez DO Attending Physician: Lu Melendrez DO Referring Physician Date of Admission Nov 05, 2022 at 00:22 Home Medications & Allergies Home Medications Reviewed patient Home Medication Reconciliation performed by pharmacy medication reconciliations carpet cleaning technician and/or nursing. Patients Allergies have been reviewed. Allergies Allergies Coded Allergies penicillin G (Verified Allergy, Unknown, 05/30/19) Past Ejqdjxm-Ijysvx-Ovdmff Hx Patient Social History Marrital Status: single Employed/Student: retired Tobacco Use?: No Smoking Status: Never a Smoker Substance use?: No Alcohol Use?: No Pt feels they are or have been: No Immunizations Up To Date Date of Influenza Vaccine: Aug 11, 2022 Seasonal Allergies Seasonal Allergies: No Current Status status: No Advance Directives: No Communicates: Verbally Primary Language: Angolan Preferred Spoken Language: Angolan Is interpretation needed?: No Implanted or Applied Medical D: Pacemaker Past Medical History Surgeries: Gallbladder Atrial Fibrillation, High Cholesterol, Hypertension Blood Disorders: No Review of Systems Constitutional: see HPI, malaise, weakness EENTM: no symptoms reported Respiratory: no symptoms reported Cardiovascular: palpitations Gastrointestinal: no symptoms reported Genitourinary: no symptoms reported Musculoskeletal: no symptoms reported Skin: no symptoms reported Psychiatric/Neurological: No Symptoms Reported All Other Systems Reviewed Negative Unless Noted: Yes Physical Exam Physical Exam Vital Signs Vital Signs - First Documented 11/04/22 11/05/22 19:24 01:21 Temp 37.3 Pulse 94 Resp 20 B/P (MAP) 155/103 (120) Pulse Ox 95 O2 Delivery Room Air FiO2 21 Capillary Refill : Less Than 3 Seconds Height, Weight, BMI Height: '" Weight: lbs. oz. kg; 26.88 BMI Method: General Appearance: No Apparent Distress, Chronically ill Eyes: Right Eye Normal Inspection, Right Eye PERRL HEENT: PERRL/EOMI, Normal ENT Inspection, Pharynx Normal, Moist Mucous Membranes Neck: Full Range of Motion, Normal Inspection, Non Tender Respiratory: Chest Non Tender, Lungs Clear, Normal Breath Sounds, No Accessory Muscle Use, No Respiratory Distress Cardiovascular: No Edema, No Gallop, No JVD, No Murmur, Normal Peripheral Pulses, Irregularly Irregular Gastrointestinal: Normal Bowel Sounds, No Organomegaly, No Pulsatile Mass, Non Tender, Soft Back: Normal Inspection, No CVA Tenderness, No Vertebral Tenderness Extremity: Normal Capillary Refill, Normal Inspection, Normal Range of Motion, Non Tender, No Calf Tenderness, No Pedal Edema Neurologic/Psychiatric: Alert, Oriented x3, No Motor/Sensory Deficits, Normal Mood/Affect Skin: Normal Color, Warm/Dry Lymphatic: No Adenopathy Results Results/Procedures Labs Laboratory Tests 11/04/22 19:33 11/05/22 04:33 11/05/22 05:20 Patient resulted labs reviewed. Assessment/Plan Admission Diagnosis Assessment: AF RVR UTI Weakness Fall risk HTN HLP Plan: Cardiology consult ECHO Move to 4th floor Admission Status: Inpatient Order (span 2 midnights) Reason for Inpatient Admission: AF RVR with UTI and weakness LU MELENDREZ DO Nov 05, 2022 05:58
[2022-11-05] MEDS ORDERED: MELATONIN 3 MG TABLET PO PRN (06:00)
[2022-11-05] MEDS ORDERED: KCL 20 MEQ TAB (K-DUR) PO ONE ×2 (06:00→08:00)
[2022-11-05] MEDS ORDERED: HYDROmorphone 2 MG/ML VIAL (DILAUDID) IV PRN (06:00)
[2022-11-05] MEDS ORDERED: diphenhydrAMINE 25 MG TAB (BENADRYL) PO PRN (06:00)
[2022-11-05] MEDS ORDERED: ANTACID SUSP 30 ML UDC (MYLANTA) PO PRN (06:00)
[2022-11-05] MEDS ORDERED: CALCIUM CARBONATE 500 MG (TUMS) TAB.CHEW PO PRN (06:00)
[2022-11-05] MEDS ORDERED: MILK OF MAGNESIA 400 MG/5 ML 30 ML UDC PO PRN (06:00)
[2022-11-05] MEDS ORDERED: ONDANSETRON 4 MG/2 ML (SDV) Z0FRAN IV PRN (06:00)
[2022-11-05] MEDS ORDERED: MAGNESIUM 1 GM/100 ML IVPB 100 ML IV SCH (06:00)
[2022-11-05] MEDS ORDERED: LACTULOSE SYRUP 10GM/15ML (ENULOSE) 30ML UDC PO PRN (06:00)
[2022-11-05] MEDS ORDERED: POTASSIUM CL 10MEQ/50ML IVPB 50 ML IV SCH (06:00)
[2022-11-05] MEDS ORDERED: KCL 20 MEQ TAB (K-DUR) PO SCH (06:00)
[2022-11-05] MEDS ORDERED: polyethylene glycoL POWDER 17 GM (MIRALAX) PACK PO PRN (06:00)
[2022-11-05] MEDS ORDERED: ONDANSETRON 4 MG (ZOFRAN) ORAL DISSOLVE TAB PO PRN (06:00)
[2022-11-05] MEDS ORDERED: BISACODYL 10 MG SUPP (DULCOLAX) PR PRN (06:00)
[2022-11-05] MEDS ORDERED: diphenhydrAMINE 50 MG/ML INJ (BENADRYL) IVP PRN (06:00)
[2022-11-05] MEDS: DOCUSATE SODIUM 100 MG (COLACE) CAP PO SCH ×2 (08:40→20:06)
[2022-11-05] MEDS: SENNOSIDES 8.6 MG (SENOKOT) TAB PO SCH ×2 (08:40→20:06)
--- NOTE | 2022-11-05 09:44 | Physical Therapy Evaluation ---
PT Evaluation-General Medical Diagnosis Admission Date Nov 05, 2022 at 00:22 Medical Diagnosis: AFib; eurosepsis Onset Date: Nov 05, 2022 Therapy Diagnosis Therapy Diagnosis: weakness Precautions Precautions/Isolations: Standard Precautions Referral Reason for Referral: Evaluation/Treatment, Strengthening Medical History Pertinent Medical History: Atrial Fib, HTN Additional Medical History pacemaker Reviewed History: Yes Social History Home: Single Level Current Living Status: Alone Family lives next door Prior Prior Level of Function SCALE: Activities may be completed with or without assistive devices. 2-Amlvjjmqqx-pgfiyfs completes the activity by him/herself with no assistance from a helper. 5-Set-up or Clean-up Assistance-helper sets up or cleans up; patient completes activity. [place] assists only prior to or following the activity. 4-Supervision or Touching Assistance-helper provides verbal cues and/or touching/steadying and/or contact guard assistance as patient completes activity. Assistance may be provided throughout the activity or intermittently. 3-Partial/Moderate Assistance-helper does LESS THAN HALF the effort. [place] lifts, holds or supports trunk or limbs, but provides less than half the effort. 2-Substantial/Maximal Assistance-helper does MORE THAN HALF the effort. [place] lifts or holds trunk or limbs and provides more than half the effort. 1-Fcajnovvu-nlqjjr does ALL the effort. Patient does none of the effort to complete the activity. Or, the assistance of 2 or more helpers is required for the patient to complete the activity. If activity was not attempted, code reason: 7-Patient Refused. 9-Not Applicable-not attempted and the patient did not perform the activity before the current illness, exacerbation or injury. 10-Not Attempted due to Environmental Limitations-(lack of equipment, weather restraints, etc.). 88-Not Attempted due to Medical Conditions or Safety Concerns. Bed Mobility: 6 Transfers (B,C,W/C): 6 Gait: 6 PT Evaluation-Current Subjective Pt's family brought her to the ER after noticing a change in her mental status. Pt currently reports she feels near normal, with a slight bit of weakness. Objective Patient Orientation: Person, Place, Situation ROM/Strength Strength Lower Extremities Gross 4+/5 (B); no asymmetrical strength deficit Sensory Vision: Functional Hearing: Functional Sensation Left Lower Extremity: Impaired Sensation Lower Extremities chronic numbness and tingling in (B) LEs Transfers Roll Left to Right (QC): 4 Sit to Lying (QC): 4 Lying to Sitting/Side of Bed(Q: 4 Sit to Stand (QC): 4 Chair/Tua-gx-Qoind Xfer(QC): 4 Pt CGA to Min assist for bed mobility and transfers. She had consistent posterior balance loss upon the initial sitting at edge of bed. After standing a few times, she was then able to maintain seated balance. Gait Does the Patient Walk?: Yes Mode of Locomotion: Walk Anticipated Mode of Locomotion: Walk Walk 10 feet (QC): 4 Distance: 10 Gait Assistive Device: FWW Comments/Gait Description Min to CGA for standing balance and ambulation; pt could have ambulate further but was limited by confines of the room and connections to monitors Balance Sitting Static: Fair Sitting Dynamic: Fair Standing Static: Fair Standing Dynamic: Fair Assessment/Needs Rehab Potential: Good PT Operator And Truck Driver Goals Correction Goals PT Operator And Truck Driver Goals Time Frame: Nov 08, 2022 Roll Left & Right (QC): 6 Sit to Lying (QC): 6 Lying-Sitting on Side/Bed(QC): 6 Sit to Stand (QC): 6 Chair/Zhi-sr-Gksze Xfer(QC): 6 Does the Patient Walk: Yes Walk 50ft with 2 Turns (QC): 6 PT Plan Problem List Problem List: Balance, Gait, Transfer, Bed Mobility Treatment/Plan Treatment Plan: Continue Plan of Care Treatment Plan: Bed Mobility, Functional Strength, Gait, Transfers Treatment Duration: Nov 08, 2022 Frequency: 6 times per week Estimated Hrs Per Day: .25 hour per day Patient and/or Family Agrees t: Yes Time Time In: 819 Time Out: 839 DATE: Nov 05, 2022 Total Billed Treatment Time: 20 Total Billed Treatment visit, Evaluation Moderate Complexity 20 minutes GUSTAVO CAM PT Nov 05, 2022 09:44
[2022-11-05] MEDS ORDERED: METO200T48 PO (13:45)
[2022-11-05] MEDS ORDERED: AMLO-251 PO (13:45)
[2022-11-05] MEDS ORDERED: WARF-47 PO (13:45)
[2022-11-05] MEDS ORDERED: HYDR25TA4 PO (13:46)
[2022-11-05] MEDS ORDERED: CITA20TA9 PO (13:47)
[2022-11-05] MEDS ORDERED: LOVA20TA2 PO (13:47)
--- NOTE | 2022-11-05 13:50 | Consultation-Cardiology ---
HPI-Cardiology Cardiology Consultation: Date of Consultation 11/05/22 Time Seen by a Provider: 13:15 Date of Admission Attending Physician Pradeep Durbin MD Admitting Physician Admitting Physician: Lu Melendrez DO Attending Physician: Lu Melendrez DO Consulting Physician MANDIE BRIGGS MD, MA, FACP, FACC, [facility] [place], CCDS Physician requesting consult: Dr Melendrez HPI: Chief Complaint: Reason for Card consult: A Fib 87 yo woman who was admitted with acute mental status changes to Dr Melendrez's service on 11/04/22. Dr Melendrez today has asked us to see her for a h/o A Fib. She says she has had A Fib since at least 2014. Dr Durbin manages it. She takes metoprolol for rate control and for hypertension and she takes warfarin for stroke prophylaxis. She denies cp or palp or syncope or shortness of breath or swelling. She had recently noted some dysuria but no hematuria. She denies n/v/d. Review of Systems-Cardiology Review of Systems Constitutional: malaise; No weight loss, No weight gain Eyes: No vision change Ears/Nose/Throat: No ear discharge, No nasal drainage, No recent hearing loss Respiratory: As described under HPI Cardiovascular: As described under HPI Gastrointestinal: As described under HPI Genitourinary: As described under HPI Musculoskeletal: back pain (chronic); No joint pain Skin: No rash, No ulcerations Psychiatric/Neurological: No seizure, No focal weakness, No syncope Hematologic: No bleeding abnormalities OEX-Vxodtq-Spgiie Hx Patient Social History 2nd Hand Smoke Exposure: No Have you traveled recently?: No Alcohol Use?: No Pt feels they are or have been: No Immunizations Up To Date Date of Influenza Vaccine: Aug 11, 2022 Past Medical History PMH As described under Assessment. Family Medical History Family Medical History: She does not report fam h/o early CAD or SCD Allergies and Home Medications Allergies Coded Allergies: penicillin G (Verified Allergy, Unknown, 05/30/19) Patient Home Medication List Home Medication List Reviewed: Yes Amlodipine Besylate (Amlodipine Besylate) 10 Mg Tablet, 10 MG PO DAILY, (Reported) Entered as Reported by: TEDDY LY on 11/05/22 5235 Last Action: New Order Metoprolol Succinate (Metoprolol Succinate) 200 Mg Tab.er.24h, 200 MG PO DAILY, (Reported) Entered as Reported by: TEDDY LY on 11/05/22 1345 Last Action: New Order Ondansetron (Ondansetron Odt) 4 Mg Tab.rapdis, 4 MG PO Q6H PRN for NAUSEA/VOMITING Prescribed by: WIN LANDRY on 11/20/192045 Potassium Chloride (K-Tab ER) 20 Meq Tablet.er, 20 MEQ PO DAILY Prescribed by: TRINI CLAY on 05/30/191938 Warfarin Sodium (Warfarin Sodium) 2 Mg Tablet, 2 MG PO DAILY, (Reported) Entered as Reported by: TEDDY LY on 11/05/22 1345 Last Action: New Order Physical Exam-Cardiology Physical Exam Vital Signs/I&O 11/05/22 11/05/22 11/05/22 11/05/22 02:00 03:00 04:00 04:00 Pulse 80 92 73 Resp 18 21 29 B/P (MAP) 123/81 (95) 141/77 (98) 156/76 (102) Pulse Ox 92 91 93 96 O2 Delivery Room Air Room Air Room Air Room Air 11/05/22 11/05/22 11/05/22 11/05/22 05:00 06:00 07:00 07:00 Pulse 85 76 87 106 Resp 25 17 B/P (MAP) 135/61 (85) 150/82 (104) 138/81 (99) Pulse Ox 94 93 94 O2 Delivery Room Air Room Air Room Air 11/05/22 11/05/22 11/05/22 11/05/22 08:00 08:00 08:00 09:00 Temp 37.8 Pulse 89 81 Resp 18 8 B/P (MAP) 136/81 (99) 142/67 (97) Pulse Ox 93 96 93 O2 Delivery Room Air Room Air Room Air 11/05/22 11/05/22 11/05/22 11/05/22 10:00 11:55 12:00 12:00 Temp 37.3 Pulse 80 80 Resp 35 B/P (MAP) 128/65 (81) 134/74 (93) Pulse Ox 95 90 97 O2 Delivery Room Air Room Air 11/05/22 12:52 Pulse 87 Capillary Refill : Less Than 3 Seconds Constitutional: AAO x 3, well-developed, well-nourished HEENT: EOMI, hearing is well preserved, xanthelasmas are seen Neck: No carotid pulses are 2 + bilaterally, No with good upstrokes Respiratory: No accessory muscle use; chest expansion is symmetric, chest is bilaterally symmetric, other (fair to good, bilateral air entry) Cardiovascular: irregularly irregular, S1 and S2, systolic murmur (soft CASIMIRO at card base) Gastrointestinal: No tender; soft; No guarding, No rebound; audible bowel sounds Extremities: No clubbing, No cyanosis, No significant edema Neurologic/Psychiatric: oriented x 3, other (moves all limbs equally) Skin: normal color, warm/dry; No cyanosis Data Review Labs Laboratory Tests 11/04/22 19:33: White Blood Count 14.9H, Red Blood Count 4.96, Hemoglobin 15.5, Hematocrit 46, Mean Corpuscular Volume 94, Mean Corpuscular Hemoglobin 31, Mean Corpuscular Hemoglobin Concent 33, Red Cell Distribution Width 13.7, Platelet Count 186, Mean Platelet Volume 11.7, Immature Granulocyte % (Auto) 1, Neutrophils (%) (Auto) 83H, Lymphocytes (%) (Auto) 7L, Monocytes (%) (Auto) 9, Eosinophils (%) (Auto) 0, Basophils (%) (Auto) 0, Neutrophils # (Auto) 12.4H, Lymphocytes # (Auto) 1.1, Monocytes # (Auto) 1.4H, Eosinophils # (Auto) 0.0, Basophils # (Auto) 0.0, Immature Granulocyte # (Auto) 0.1, Neutrophils % (Manual) 84, Lymphocytes % (Manual) 11, Monocytes % (Manual) 5, Prothrombin Time 36.1H, INR Comment 3.6H, Activated Partial Thromboplast Time 54H, D-Dimer 0.85H, Sodium Level 129L, Potassium Level 3.1L, Chloride Level 88L, Carbon Dioxide Level 23, Anion Gap 18H, Blood Urea Nitrogen 25H, Creatinine 0.92, Estimat Glomerular Filtration Rate 61, BUN/Creatinine Ratio 27, Glucose Level 118H, Calcium Level 9.7, Corrected Calcium 9.7, Magnesium Level 1.6, Total Bilirubin 0.9, Aspartate Amino Transf (AST/SGOT) 30, Alanine Aminotransferase (ALT/SGPT) 14, Alkaline Phosphatase 103, Troponin I < 0.30, Pro-B-Type Natriuretic Peptide 3692.0H, Total Protein 7.7, Albumin 4.0 11/04/22 21:32: Urine Color YELLOW, Urine Clarity CLOUDY, Urine pH 5.5, Urine Specific [place] 1.025H, Urine Protein 2+H, Urine Glucose (UA) NEGATIVE, Urine Ketones NEGATIVE, Urine Nitrite NEGATIVE, Urine Bilirubin NEGATIVE, Urine Urobilinogen 1.0, Urine Leukocyte Esterase 3+H, Urine RBC (Auto) 2+H, Urine RBC NONE, Urine WBC TNTCH, Urine Crystals NONE, Urine Bacteria LARGEH, Urine Casts NONE, Urine Mucus NEGATIVE, Urine Culture Indicated YES 11/04/22 21:36: Influenza Type A (RT-PCR) Not Detected, Influenza Type B (RT-PCR) Not Detected, SARS-CoV-2 RNA (RT-PCR) Not Detected 11/05/22 04:33: Prothrombin Time 39.5H, INR Comment 4.0H, Sodium Level 130L, Potassium Level 3.1L, Chloride Level 96L, Carbon Dioxide Level 21, Anion Gap 13, Blood Urea Nitrogen 22H, Creatinine 0.87, Estimat Glomerular Filtration Rate 65, BUN/Creatinine Ratio 25, Glucose Level 136H, Calcium Level 9.4, Corrected Calcium 10.0, Magnesium Level 2.2, Total Bilirubin 0.7, Aspartate Amino Transf (AST/SGOT) 19, Alanine Aminotransferase (ALT/SGPT) 13, Alkaline Phosphatase 65, Total Protein 6.3L, Albumin 3.2, Phosphorus Level 2.5 11/05/22 05:20: White Blood Count 11.6H, Red Blood Count 4.22, Hemoglobin 13.3, Hematocrit 39, Mean Corpuscular Volume 92, Mean Corpuscular Hemoglobin 32, Mean Corpuscular Hemoglobin Concent 34, Red Cell Distribution Width 13.8, Platelet Count 200, Mean Platelet Volume 12.7H, Immature Granulocyte % (Auto) 0, Neutrophils (%) (Auto) 82H, Lymphocytes (%) (Auto) 8L, Monocytes (%) (Auto) 10, Eosinophils (%) (Auto) 0, Basophils (%) (Auto) 0, Neutrophils # (Auto) 9.5H, Lymphocytes # (Auto) 0.9L, Monocytes # (Auto) 1.2H, Eosinophils # (Auto) 0.0, Basophils # (Auto) 0.0, Immature Granulocyte # (Auto) 0.1 Laboratory Tests 11/04/22 19:33 11/05/22 04:33 11/05/22 05:20 A/P-Cardiology Assessment/Admission Diagnosis Chronic A Fib - presented with a rapid ventricular rate that was likely due to UTI UTI with sepsis and acute mental status changes - managed by Dr Melendrez Supra-therapeutic INR H/o hypertension Echo in November 2020: LVEF 55-60%, mod enlargement of both atria, mild MR, mild to mod TR, PASP 40-45 mmHg Discussion and Recomendations * Hold warfarin until INR in the therapeutic range, then resume * May need a lower dose of warfarin while on antibiotics * Resume beta-marc for control of heart rate and bp * Monitor labs * Avoid hypokalemia/hypomagnesemia * Repeat echo MANDIE BRIGGS MD FACP FACC CCDS Nov 05, 2022 13:50
[2022-11-05] MEDS ORDERED: POTA-177 PO (13:55)
[2022-11-05] MEDS ORDERED: OXYB5TAB13 PO (13:55)
[2022-11-05] MEDS: meTOprolol SUCCINATE 100 MG (TOPROL XL) TAB PO SCH ×2 (14:12→20:05)
[2022-11-05] MEDS: cefTRIAXone 1 GM/50 ML (PRE-MIX) IV SCH (20:05)
[2022-11-05] MEDS: MELATONIN 3 MG TABLET PO PRN (20:06)
[2022-11-05] MEDS ORDERED: HYDROmorphone 2 MG/ML VIAL (DILAUDID) ONE (20:18)
[2022-11-06 06:05] LABS: BASOPHILS % (AUTO) 0 % (0-10); EOSINOPHILS % (AUTO) 0 % (0-10); HEMATOCRIT 40 % (35-52); HEMOGLOBIN 13.3 g/dL (11.5-16.0); LYMPHOCYTES # (AUTO) 0.8 10^3/uL (1.0-4.0); LYMPHOCYTES % (AUTO) 7 % (12-44); MEAN CORPUSCULAR HEMOGLOBIN 31 pg (25-34); MEAN CORPUSCULAR HGB CONC 33 g/dL (32-36); MEAN CORPUSCULAR VOLUME 93 fL (80-99); MEAN PLATELET VOLUME 11.5 fL (9.0-12.2); MONOCYTES # (AUTO) 1.4 10^3/uL (0.0-1.0); MONOCYTES % (AUTO) 12 % (0-12); NEUTROPHILS # (AUTO) 9.6 10^3/uL (1.8-7.8); NEUTROPHILS % (AUTO) 81 % (42-75); PLATELET COUNT 156 10^3/uL (130-400); WHITE BLOOD COUNT 11.9 10^3/uL (4.3-11.0)
[2022-11-06 06:12] LABS: ALBUMIN 3.2 GM/DL (3.2-4.5); POTASSIUM 3.6 MMOL/L (3.6-5.0)
[2022-11-06 06:13] LABS: CALCIUM 9.2 MG/DL (8.5-10.1); INR 2.9 (0.8-1.4); PROTHROMBIN TIME PATIENT 30.6 SEC (12.2-14.7)
[2022-11-06 06:14] LABS: TOTAL PROTEIN 6.2 GM/DL (6.4-8.2)
[2022-11-06 06:16] LABS: BILIRUBIN,TOTAL 0.7 MG/DL (0.1-1.0)
--- NOTE | 2022-11-06 06:17 | Progress Note - Hospitalist ---
Subjective HPI/CC On Admission Date Seen by Provider: Nov 06, 2022 Time Seen by Provider: 12:00 CC: AF RVR HPI: This is an 87yoWF clinic pt of Dr Durbin who has h/o AF who presented to the [facility] ER with AF RVR. UTI was also dx. Rocephin initiated empirically. Patient appears to be weak and will need close monitoring for any decompensation. Cardiology will be consulted. Subjective/Events-last exam Doing better No pain reported Memory deficit noted Family at bedside No significant heart events overnight Review of Systems General: Fatigue, Malaise Neurological: Confusion Objective Exam Vital Signs Vital Signs Date Time Temp Pulse Resp B/P (MAP) Pulse Ox O2 Delivery O2 Flow Rate FiO2 11/07/22 01:00 58 11/06/22 23:59 36.4 18 143/71 (95) 91 Room Air 11/05/22 01:21 21 Capillary Refill : Less Than 3 Seconds General Appearance: No Apparent Distress, WD/WN, Chronically ill Respiratory: Lungs Clear, Normal Breath Sounds Cardiovascular: Irregularly Irregular Neurologic/Psychiatric: Alert, Oriented x3 Results/Procedures Lab Laboratory Tests 11/06/22 05:53 Patient resulted labs reviewed. Assessment/Plan Assessment and Plan Assess & Plan/Chief Complaint Assessment: AF RVR UTI Weakness Fall risk HTN HLP Dementia Plan: Abx PT OT Monitor closely MARCELINA VARGAS DO Nov 06, 2022 06:17
[2022-11-06 06:18] LABS: CREATININE SERUM 0.76 MG/DL (0.60-1.30)
[2022-11-06 06:21] LABS: MAGNESIUM 1.8 MG/DL (1.6-2.4)
[2022-11-06] MEDS: DOCUSATE SODIUM 100 MG (COLACE) CAP PO SCH ×2 (09:14→21:25)
[2022-11-06] MEDS: meTOprolol SUCCINATE 100 MG (TOPROL XL) TAB PO SCH ×2 (09:14→21:26)
[2022-11-06] MEDS: SENNOSIDES 8.6 MG (SENOKOT) TAB PO SCH ×2 (09:14→21:25)
[2022-11-06] MEDS ORDERED: ONDANSETRON 4 MG (ZOFRAN) ORAL DISSOLVE TAB PO PRN (12:30)
--- NOTE | 2022-11-06 13:34 | Progress Note - Cardiology ---
Cardiology SOAP Progress Note Subjective: No cp or palp or syncope or shortness of breath No n/v/d No focal weakness Gen weakness and malaise Objective: I&O/Vital Signs 11/06/22 11/06/22 11/06/22 11/06/22 03:58 07:00 07:21 08:51 Temp 36.4 36.7 Pulse 75 76 75 Resp 18 18 B/P (MAP) 132/69 (90) 135/72 (93) Pulse Ox 92 92 O2 Delivery Room Air Room Air Room Air 11/06/22 11/06/22 12:12 12:39 Temp 36.6 Pulse 68 78 Resp 18 B/P (MAP) 130/68 (88) Pulse Ox 90 O2 Delivery Room Air 11/06/22 00:00 Intake Total 1025 ml Balance 1025 ml Constitutional: AAO x 3, well-developed, well-nourished Respiratory: No accessory muscle use; chest expansion is symmetric, chest is bilaterally symmetric, other (fair to good, bilateral air entry) Cardiovascular: irregularly irregular, S1 and S2, systolic murmur (soft CASIMIRO at card base) Gastrointestional: No tender; soft; No guarding, No rebound; audible bowel sounds Extremities: No clubbing, No cyanosis, No significant edema Neurologic/Psychiatric: oriented x 3, other (moves all limbs equally) Skin: normal color, warm/dry; No cyanosis Results/Procedures: Labs Laboratory Tests 11/06/22 05:53: White Blood Count 11.9H, Red Blood Count 4.32, Hemoglobin 13.3, Hematocrit 40, Mean Corpuscular Volume 93, Mean Corpuscular Hemoglobin 31, Mean Corpuscular Hemoglobin Concent 33, Red Cell Distribution Width 13.9, Platelet Count 156, Mean Platelet Volume 11.5, Immature Granulocyte % (Auto) 1, Neutrophils (%) (Auto) 81H, Lymphocytes (%) (Auto) 7L, Monocytes (%) (Auto) 12, Eosinophils (%) (Auto) 0, Basophils (%) (Auto) 0, Neutrophils # (Auto) 9.6H, Lymphocytes # (Auto) 0.8L, Monocytes # (Auto) 1.4H, Eosinophils # (Auto) 0.0, Basophils # (Auto) 0.0, Immature Granulocyte # (Auto) 0.1, Prothrombin Time 30.6H, INR Comment 2.9H, Sodium Level 129L, Potassium Level 3.6, Chloride Level 99, Carbon Dioxide Level 21, Anion Gap 9, Blood Urea Nitrogen 22H, Creatinine 0.76, Estimat Glomerular Filtration Rate 76, BUN/Creatinine Ratio 29, Glucose Level 129H, Calcium Level 9.2, Corrected Calcium 9.8, Magnesium Level 1.8, Total Bilirubin 0.7, Aspartate Amino Transf (AST/SGOT) 20, Alanine Aminotransferase (ALT/SGPT) 14, Alkaline Phosphatase 68, Total Protein 6.2L, Albumin 3.2 Microbiology 11/05/22 MRSA Screen - Final, Complete MRSA not isolated 11/04/22 Urine Culture - Preliminary, Resulted Escherichia coli Laboratory Tests 11/04/22 19:33 11/05/22 04:33 11/05/22 05:20 11/06/22 05:53 A/P: Assessment: Chronic A Fib - presented with a rapid ventricular rate that was likely due to UTI - Echo in November 2020: LVEF 55-60%, mod enlargement of both atria, mild MR, mild to mod TR, PASP 40-45 mmHg - Echo on 11/05/22: LVEF 55-65%, mild conc LVH, mild to mod enlargement of both atria, mod MR, triv AI, PASP 40-45 mmHg UTI with sepsis and acute mental status changes - managed by Dr Melendrez Supra-therapeutic INR at presentation, now in normal range (2.9 on 11/06/22) H/o hypertension Plan: * We recommend that warfarin be resumed. May need a lower dose of warfarin while on antibiotics * Continue beta-marc for control of heart rate and bp * Monitor labs * Avoid hypokalemia/hypomagnesemia * I had a detailed discussion with her and her fam regarding her cardiac issues and her cardiac w/u MANDIE BRIGGS MD FACP [facility] CCDS Nov 06, 2022 13:34
[2022-11-06] MEDS: warFARin 2 MG (COUMADIN) TAB PO SCH (17:55)
[2022-11-06] MEDS: KCL 10 MEQ TAB (MICRO K) PO SCH (17:55)
[2022-11-06] MEDS ORDERED: NON-FORMULARY MEDICATION 1 EA EA (Potassium Chloride 10 MEQ) PO SCH (21:00)
[2022-11-06] MEDS: OXYBUTYNIN (DITROPAN) 5 MG TAB PO SCH (21:25)
[2022-11-06] MEDS: MELATONIN 3 MG TABLET PO PRN (21:26)
[2022-11-06] MEDS: cefTRIAXone 1 GM/50 ML (PRE-MIX) IV SCH (21:26)
[2022-11-07 05:59] LABS: BASOPHILS % (AUTO) 0 % (0-10); EOSINOPHILS # (AUTO) 0.1 10^3/uL (0.0-0.3); EOSINOPHILS % (AUTO) 1 % (0-10); HEMATOCRIT 42 % (35-52); LYMPHOCYTES % (AUTO) 11 % (12-44); MEAN CORPUSCULAR HEMOGLOBIN 31 pg (25-34); MEAN CORPUSCULAR HGB CONC 34 g/dL (32-36); MEAN CORPUSCULAR VOLUME 92 fL (80-99); MEAN PLATELET VOLUME 11.7 fL (9.0-12.2); MONOCYTES % (AUTO) 12 % (0-12); NEUTROPHILS # (AUTO) 6.3 10^3/uL (1.8-7.8); NEUTROPHILS % (AUTO) 75 % (42-75); PLATELET COUNT 162 10^3/uL (130-400); WHITE BLOOD COUNT 8.4 10^3/uL (4.3-11.0)
[2022-11-07 06:11] LABS: INR 2.4 (0.8-1.4)
[2022-11-07 06:20] LABS: BILIRUBIN,TOTAL 0.6 MG/DL (0.1-1.0); CALCIUM 9.6 MG/DL (8.5-10.1); CREATININE SERUM 0.8 MG/DL (0.60-1.30); MAGNESIUM 1.8 MG/DL (1.6-2.4); POTASSIUM 3.3 MMOL/L (3.6-5.0); TOTAL PROTEIN 6.1 GM/DL (6.4-8.2)
[2022-11-07] MEDS ORDERED: NON-FORMULARY MEDICATION 1 EA EA (Lovastatin 20 MG) PO SCH (09:00)
[2022-11-07] MEDS ORDERED: AtorvaSTATin TABLET 10 MG TABLET PO SCH (09:00)
[2022-11-07] MEDS: meTOprolol SUCCINATE 100 MG (TOPROL XL) TAB PO SCH (09:05)
[2022-11-07] MEDS: DOCUSATE SODIUM 100 MG (COLACE) CAP PO SCH (09:05)
[2022-11-07] MEDS: SENNOSIDES 8.6 MG (SENOKOT) TAB PO SCH (09:06)
[2022-11-07] MEDS: OXYBUTYNIN (DITROPAN) 5 MG TAB PO SCH (09:06)
[2022-11-07] MEDS: KCL 10 MEQ TAB (MICRO K) PO SCH ×2 (09:06→18:23)
[2022-11-07] MEDS ORDERED: IBUP-844 PO (09:07)
[2022-11-07] MEDS ORDERED: OMEP20CA18 PO (09:07)
[2022-11-07] MEDS ORDERED: CALC600T91 PO (09:07)
[2022-11-07] MEDS ORDERED: MULT-1136 PO (09:08)
[2022-11-07] MEDS ORDERED: MV-M1CAP24 PO (09:09)
--- NOTE | 2022-11-07 09:11 | Occupational Therapy Eval ---
OT Evaluation-General/PLF Medical Diagnosis Admission Date Nov 05, 2022 at 00:22 Medical Diagnosis: AFib; eurosepsis Onset Date: Nov 05, 2022 Precautions Precautions/Isolations: Standard Precautions Medical History Pertinent Medical History: Atrial Fib, HTN Social History Home: Single Level Current Living Status: Alone ADL-Prior Level of Function SCALE: Activities may be completed with or without assistive devices. 2-Sdduyufjyi-ginnhtp completes the activity by him/herself with no assistance from a helper. 5-Set-up or Clean-up Assistance-helper sets up or cleans up; patient completes activity. [place] assists only prior to or following the activity. 4-Supervision or Touching Assistance-helper provides verbal cues and/or touching/steadying and/or contact guard assistance as patient completes activity. Assistance may be provided throughout the activity or intermittently. 3-Partial/Moderate Assistance-helper does LESS THAN HALF the effort. [place] lifts, holds or supports trunk or limbs, but provides less than half the effort. 2-Substantial/Maximal Assistance-helper does MORE THAN HALF the effort. [place] lifts or holds trunk or limbs and provides more than half the effort. 2-Buhzrguom-mpkiwc does ALL the effort. Patient does none of the effort to complete the activity. Or, the assistance of 2 or more helpers is required for the patient to complete the activity. If activity was not attempted, code reason: 7-Patient Refused. 9-Not Applicable-not attempted and the patient did not perform the activity before the current illness, exacerbation or injury. 10-Not Attempted due to Environmental Limitations-(lack of equipment, weather restraints, etc.). 88-Not Attempted due to Medical Conditions or Safety Concerns. OT Fdc Goals Fdc Goals 1=Demonstrate adherence to instructed precautions during ADL tasks. 2=Patient will verbalize/demonstrate understanding of assistive devices/modifications for ADL. 3=Patient will improve strength/tolerance for activity to enable patient to p erform ADL's. OT Education/Plan Treatment Plan/Plan of Care Patient would benefit from OT for education, treatment and training to promote independence in ADL's, mobility, safety and/or upper extremity function for ADL's. Rehab Potential: Good Time Start Time: 08:43 Stop Time: 08:55 DATE: Nov 07, 2022 Total Time Billed (hr/min): 12 Billed Treatment Time 1 EVM 1 12 min TOM DIAZ OT Nov 07, 2022 09:11
[2022-11-07] MEDS ORDERED: KCL 20 MEQ TAB (K-DUR) PO NR ×2 (09:30→10:30)
--- NOTE | 2022-11-07 10:04 | Progress Note - Cardiology ---
Cardiology SOAP Progress Note Subjective: Sitting up in recliner at the bedside States she feels tired this morning No c/o CP, palpitations, syncope, near syncope, LE swelling, n/v/d Objective: I&O/Vital Signs 11/06/22 11/07/22 11/07/22 11/07/22 23:59 01:00 04:00 07:06 Temp 36.4 36.4 Pulse 76 58 70 69 Resp 18 18 B/P (MAP) 143/71 (95) 139/79 (99) Pulse Ox 91 92 O2 Delivery Room Air Room Air 11/07/22 11/07/22 11/07/22 07:49 08:00 08:09 Temp 36.0 Pulse 74 Resp 18 B/P (MAP) 147/77 (100) Pulse Ox 90 O2 Delivery Room Air Room Air Room Air O2 Flow Rate 0.00 11/07/22 00:00 Intake Total 724 ml Balance 724 ml Constitutional: AAO x 3, well-developed, well-nourished Respiratory: No accessory muscle use; chest expansion is symmetric, chest is bilaterally symmetric, other (fair to good, bilateral air entry) Cardiovascular: irregularly irregular, S1 and S2, systolic murmur (soft CASIMIRO at card base) Gastrointestional: No tender; soft; No guarding, No rebound; audible bowel sounds Extremities: No clubbing, No cyanosis, No significant edema Neurologic/Psychiatric: oriented x 3, other (moves all limbs equally) Skin: normal color, warm/dry; No cyanosis Results/Procedures: Labs Laboratory Tests 11/07/22 05:27: White Blood Count 8.4, Red Blood Count 4.50, Hemoglobin 14.0, Hematocrit 42, Mean Corpuscular Volume 92, Mean Corpuscular Hemoglobin 31, Mean Corpuscular Hemoglobin Concent 34, Red Cell Distribution Width 13.6, Platelet Count 162, Mean Platelet Volume 11.7, Immature Granulocyte % (Auto) 1, Neutrophils (%) (Auto) 75, Lymphocytes (%) (Auto) 11L, Monocytes (%) (Auto) 12, Eosinophils (%) (Auto) 1, Basophils (%) (Auto) 0, Neutrophils # (Auto) 6.3, Lymphocytes # (Auto) 1.0, Monocytes # (Auto) 1.0, Eosinophils # (Auto) 0.1, Basophils # (Auto) 0.0, Immature Granulocyte # (Auto) 0.1, Prothrombin Time 27.0H, INR Comment 2.4H, Sodium Level 134L, Potassium Level 3.3L, Chloride Level 101, Carbon Dioxide Level 23, Anion Gap 10, Blood Urea Nitrogen 20H, Creatinine 0.80, Estimat Glomerular Filtration Rate 72, BUN/Creatinine Ratio 25, Glucose Level 113H, Calcium Level 9.6, Corrected Calcium 10.4H, Magnesium Level 1.8, Total Bilirubin 0.6, Aspartate Amino Transf (AST/SGOT) 18, Alanine Aminotransferase (ALT/SGPT) 15, Alkaline Phosphatase 66, Total Protein 6.1L, Albumin 3.0L Microbiology 11/05/22 MRSA Screen - Final, Complete MRSA not isolated 11/04/22 Urine Culture - Preliminary, Resulted Escherichia coli Laboratory Tests 11/06/22 05:53 11/07/22 05:27 Laboratory Tests 11/06/22 05:53 11/07/22 05:27 A/P: Assessment: Chronic A Fib - presented with a rapid ventricular rate that was likely due to UTI - Echo in November 2020: LVEF 55-60%, mod enlargement of both atria, mild MR, mild to mod TR, PASP 40-45 mmHg - Echo on 11/05/22: LVEF 55-65%, mild conc LVH, mild to mod enlargement of both atria, mod MR, triv AI, PASP 40-45 mmHg UTI with sepsis and acute mental status changes - managed by Dr Melendrez Supra-therapeutic INR at presentation, now in normal range (2.4 on 11/07/22) H/o hypertension Plan: * Continue current dose of warfarin (INR threrapeutic). Monitor closely d/t abx tx * Continue beta-marc for control of heart rate and bp * Monitor labs * Avoid hypokalemia/hypomagnesemia - hypokalemia this morning - replace * I had a detailed discussion with her and her fam regarding her cardiac issues and her cardiac w/u SUSAN SRIVASTAVA Nov 07, 2022 10:04
[2022-11-07] MEDS ORDERED: CATHETER FLUSH 10 ML SYR IVP PRN (11:15)
--- NOTE | 2022-11-07 11:40 | Physical Therapy Daily Note ---
PT Daily Note-Current Subjective Patient agrees to PT. Pain Section J - Health Conditions 1. Rarely or not at all 2. Occasionally 3. Frequently 4. Almost constantly 8. Unable to answer Pain Effect on Sleep: 1 Pain Interference with Therapy: 1 Pain Interference w/Day-to-Day: 1 Mental Status Patient Orientation: Normal For Age Transfers SCALE: Activities may be completed with or without assistive devices. 1-Kacoiemwkv-prahqqx completes the activity by him/herself with no assistance from a helper. 5-Set-up or Clean-up Assistance-helper sets up or cleans up; patient completes activity. [place] assists only prior to or following the activity. 4-Supervision or Touching Assistance-helper provides verbal cues and/or touching/steadying and/or contact guard assistance as patient completes activity. Assistance may be provided throughout the activity or intermittently. 3-Partial/Moderate Assistance-helper does LESS THAN HALF the effort. [place] lifts, holds or supports trunk or limbs, but provides less than half the effort. 2-Substantial/Maximal Assistance-helper does MORE THAN HALF the effort. [place] lifts or holds trunk or limbs and provides more than half the effort. 8-Asdiqpxxr-bunzti does ALL the effort. Patient does none of the effort to complete the activity. Or, the assistance of 2 or more helpers is required for the patient to complete the activity. If activity was not attempted, code reason: 7-Patient Refused. 9-Not Applicable-not attempted and the patient did not perform the activity before the current illness, exacerbation or injury. 10-Not Attempted due to Environmental Limitations-(lack of equipment, weather restraints, etc.). 88-Not Attempted due to Medical Conditions or Safety Concerns. Sit to Stand (QC): 5 Gait Training Distance: 500' Walk 10 feet (QC): 5 Walk 50 ft with 2 Turns(QC): 5 Walk 150 ft (QC): 5 Gait Assistive Device: FWW Safe and functional with no deviation Assessment Patient remains up in recliner with needs met. Patient reports she utilizes a 4WW at home. SW present. PT Care Home Goals Special Procedure Technologist Goals PT Care Home Goals Time Frame: Nov 08, 2022 Roll Left & Right (QC): 6 Sit to Lying (QC): 6 Lying-Sitting on Side/Bed(QC): 6 Sit to Stand (QC): 6 Chair/Rcp-ez-Obwjb Xfer(QC): 6 Does the Patient Walk: Yes Walk 50ft with 2 Turns (QC): 6 PT Plan Treatment/Plan Treatment Plan: Continue Plan of Care Treatment Plan: Bed Mobility, Functional Strength, Gait, Transfers Treatment Duration: Nov 08, 2022 Frequency: 6 times per week Estimated Hrs Per Day: .25 hour per day Patient and/or Family Agrees t: Yes Time Time In: 1013 Time Out: 1023 DATE: Nov 07, 2022 Total Billed Treatment Time: 10 Total Billed Treatment 1 visit FA 10 min STEFANY GODWIN PT Nov 07, 2022 11:40
--- NOTE | 2022-11-07 13:01 | Progress Note - Cardiology ---
Cardiology SOAP Progress Note Subjective: No cp or palp or syncope No shortness of breath at rest Gen weakness and malaise No focal weakness No n/v/d Objective: I&O/Vital Signs 11/07/22 11/07/22 11/07/22 11/07/22 01:00 04:00 07:06 07:49 Temp 36.4 36.0 Pulse 58 70 69 74 Resp 18 18 B/P (MAP) 139/79 (99) 147/77 (100) Pulse Ox 92 O2 Delivery Room Air Room Air 11/07/22 11/07/22 11/07/22 11/07/22 08:00 08:09 11:27 12:29 Temp 36.3 Pulse 78 71 Resp 19 B/P (MAP) 138/76 (96) Pulse Ox 90 96 O2 Delivery Room Air Room Air Room Air O2 Flow Rate 0.00 11/07/22 00:00 Intake Total 724 ml Balance 724 ml Constitutional: AAO x 3, well-developed, well-nourished Respiratory: No accessory muscle use; chest expansion is symmetric, chest is bilaterally symmetric, other (fair to good, bilateral air entry) Cardiovascular: irregularly irregular, S1 and S2, systolic murmur (soft CASIMIRO at card base) Gastrointestional: No tender; soft; No guarding, No rebound; audible bowel sounds Extremities: No clubbing, No cyanosis, No significant edema Neurologic/Psychiatric: oriented x 3, other (moves all limbs equally) Skin: normal color, warm/dry; No cyanosis, No rash on exposed areas, No ulcerations on exposed areas Results/Procedures: Labs Laboratory Tests 11/07/22 05:27: White Blood Count 8.4, Red Blood Count 4.50, Hemoglobin 14.0, Hematocrit 42, Mean Corpuscular Volume 92, Mean Corpuscular Hemoglobin 31, Mean Corpuscular Hemoglobin Concent 34, Red Cell Distribution Width 13.6, Platelet Count 162, Mean Platelet Volume 11.7, Immature Granulocyte % (Auto) 1, Neutrophils (%) (Auto) 75, Lymphocytes (%) (Auto) 11L, Monocytes (%) (Auto) 12, Eosinophils (%) (Auto) 1, Basophils (%) (Auto) 0, Neutrophils # (Auto) 6.3, Lymphocytes # (Auto) 1.0, Monocytes # (Auto) 1.0, Eosinophils # (Auto) 0.1, Basophils # (Auto) 0.0, Immature Granulocyte # (Auto) 0.1, Prothrombin Time 27.0H, INR Comment 2.4H, Sodium Level 134L, Potassium Level 3.3L, Chloride Level 101, Carbon Dioxide Level 23, Anion Gap 10, Blood Urea Nitrogen 20H, Creatinine 0.80, Estimat Glomerular Filtration Rate 72, BUN/Creatinine Ratio 25, Glucose Level 113H, Calcium Level 9.6, Corrected Calcium 10.4H, Magnesium Level 1.8, Total Bilirubin 0.6, Aspartate Amino Transf (AST/SGOT) 18, Alanine Aminotransferase (ALT/SGPT) 15, Alkaline Phosphatase 66, Total Protein 6.1L, Albumin 3.0L Microbiology 11/05/22 MRSA Screen - Final, Complete MRSA not isolated 11/04/22 Urine Culture - Preliminary, Resulted Escherichia coli Laboratory Tests 11/06/22 05:53 11/07/22 05:27 A/P: Assessment: Chronic A Fib - presented with a rapid ventricular rate that was likely due to UTI - Echo in November 2020: LVEF 55-60%, mod enlargement of both atria, mild MR, mild to mod TR, PASP 40-45 mmHg - Echo on 11/05/22: LVEF 55-65%, mild conc LVH, mild to mod enlargement of both atria, mod MR, triv AI, PASP 40-45 mmHg UTI with sepsis and acute mental status changes - managed by Dr Melendrez Supra-therapeutic INR at presentation, now in normal range (2.4 on 11/07/22) H/o hypertension Plan: * Continue current dose of warfarin (INR threrapeutic). Monitor closely d/t abx tx * Continue beta-marc for control of heart rate and bp * Monitor labs * Avoid hypokalemia/hypomagnesemia - hypokalemia this morning - replace MANDIE BRIGGS MD FACP [facility] CCDS Nov 07, 2022 13:01
[2022-11-07 14:08] VITALS: BP 138/76
[2022-11-07] MEDS ORDERED: CEPH500C PO (14:33)
[2022-11-07 16:11] VITALS: BP 135/76
--- NOTE | 2022-11-07 16:33 | Physician Query Clarification ---
Physician Query-General Query to Physician: Clinical Validation Clarification Dr Teri Melendrez Sepsis has been documented in the medical record After study, has Sepsis been ruled out? If it has been ruled out, please document Sepsis ruled out" in the progress notes and/or discharge summary. Yes/Agreed, Sepsis is ruled out/is not clinically valid Not agreed, Sepsis has not been ruled out/is clinically valid* *Please document the clinical evidence supportive of this diagnosis (even if now resolved) in the Progress Notes and Discharge Summary Other, with explanation of the clinical findings Clinically undetermined, no explanation for the clinical findings Additional information: Altered Mental Status prior to admission, UTI, Chronic at. Fib. VS/Labs on Admission: HR 94, RR 20, BP 155/103, SpO2 95% sat on room air, T 37.3, WBC 14.9, No Lactic acid drawn, Treatment: ceftriaxone IV, No IV fluids given possibly due to elevated ProBNP of 3692 In responding to this query, please exercise your independent professional judgment. The purpose of this communication is to more accurately reflect the complexity of your patients condition. The fact that a question is asked does not imply that any particular answer is desired or expected. Thank you for your timely response to this clarification. Jerica Anderson MSN, RN Clinical Mill Laborer [email or web address] PHYSICIAN RESPONSE: Based on the clinical findings in the record, please respond to the query above on this document as an addendum. Physician Response: Physician Response no sepsis If you have questions please contact: Sandwich Hand: Ext: Thank you for your time and cooperation. Clinical Mill Laborer/Sandwich Hand This is a permanent part of the medical record JERICA ANDERSON Nov 07, 2022 16:33 MARCELINA MELENDREZ DO Nov 07, 2022 20:44
[2022-11-07] MEDS: warFARin 2 MG (COUMADIN) TAB PO SCH (18:23)
[2022-11-07 18:38] VITALS: BP 135/76
--- NOTE | 2022-11-07 21:02 | Discharge Summary ---
Discharge Summary Hospital Course Hospital Course Date of Admission: Nov 05, 2022 at 00:22 Admission Diagnosis : Altered mental status Urinary tract infection Sepsis A fib with RVR Supratherapeutic INR Family Physician/Provider: Pradeep Durbin MD Date of Discharge: 11/07/22 Discharge Diagnosis: Chronic a fib- initially RVR secondary to UTI, resolved, echo 11/05/22 EF 55-65%, mild concentric LVH, mild to moderate enlargement of both atria, moderate MR, PASP 40-45 mmHg, continued coumadin after INR down to therapeutic Urinary tract infection with sepsis and altered mental status- sepsis and confusion resolved, discharged with cephalexin to complete course for E coli with no resistance Weakness- seen by PT and improved HTN HLP Hypokalemia- replaced Hospital Course: See discharge diagnosis Labs and Pending Lab Test: Laboratory Tests 11/07/22 05:27: White Blood Count 8.4, Red Blood Count 4.50, Hemoglobin 14.0, Hematocrit 42, Mean Corpuscular Volume 92, Mean Corpuscular Hemoglobin 31, Mean Corpuscular Hemoglobin Concent 34, Red Cell Distribution Width 13.6, Platelet Count 162, Mean Platelet Volume 11.7, Immature Granulocyte % (Auto) 1, Neutrophils (%) (Auto) 75, Lymphocytes (%) (Auto) 11L, Monocytes (%) (Auto) 12, Eosinophils (%) (Auto) 1, Basophils (%) (Auto) 0, Neutrophils # (Auto) 6.3, Lymphocytes # (Auto) 1.0, Monocytes # (Auto) 1.0, Eosinophils # (Auto) 0.1, Basophils # (Auto) 0.0, Immature Granulocyte # (Auto) 0.1, Prothrombin Time 27.0H, INR Comment 2.4H, Sodium Level 134L, Potassium Level 3.3L, Chloride Level 101, Carbon Dioxide Level 23, Anion Gap 10, Blood Urea Nitrogen 20H, Creatinine 0.80, Estimat Glomerular Filtration Rate 72, BUN/Creatinine Ratio 25, Glucose Level 113H, Calcium Level 9.6, Corrected Calcium 10.4H, Magnesium Level 1.8, Total Bilirubin 0.6, Aspartate Amino Transf (AST/SGOT) 18, Alanine Aminotransferase (ALT/SGPT) 15, Alkaline Phosphatase 66, Total Protein 6.1L, Albumin 3.0L Microbiology 11/05/22 MRSA Screen - Final, Complete MRSA not isolated 2/24/23 Urine Culture - Final, Complete Escherichia coli Mixed Bacterial Kelley Home Meds Active Cephalexin 500 Mg Capsule 500 Mg PO BID Reported Ocuvite Adult 50 Plus Softgel (Mv-Mn/Om3/Dha/Epa/Fish/Lut/Justine) 250 Mg (90 Mg-160 Mg)-5 Mg-1 Mg Capsule 1 Each PO DAILY Multivitamin 1 Each Tablet 1 Each PO DAILY Calcium (Calcium Carbonate) 600 Mg Calcium (1500 Mg) Tablet 600 Mg PO DAILY Omeprazole 20 Mg Capsule.dr 20 Mg PO HS Ibu (Ibuprofen) 600 Mg Tablet 600 Mg PO DAILY PRN Potassium Chloride 10 Meq Tab.er.prt 10 Meq PO BID Oxybutynin Chloride 5 Mg Tablet 5 Mg PO BID Lovastatin 20 Mg Tablet 20 Mg PO HS Citalopram HBr (Citalopram Hydrobromide) 20 Mg Tablet 20 Mg PO HS Hydrochlorothiazide 25 Mg Tablet 25 Mg PO DAILY Amlodipine Besylate 10 Mg Tablet 10 Mg PO DAILY Metoprolol Succinate 200 Mg Tab.er.24h 200 Mg PO HS Warfarin Sodium 2 Mg Tablet 2 Mg PO DAILY Assessment/Pt DC Instructions Follow up with primary provider within a week of discharge. Discharge Diet: Cardiac Diet Activity as Tolerated: Yes Discharge Physical Examination Allergies: Coded Allergies: penicillin G (Verified Allergy, Unknown, 05/30/19) General Appearance: No Apparent Distress Respiratory: Lungs Clear, Normal Breath Sounds Cardiovascular: Irregularly Irregular Gastrointestinal: Normal Bowel Sounds, Non Tender Skin: Normal Color, Warm/Dry Neurologic/Psychiatric: Alert, Oriented x3, Normal Mood/Affect PAUL SKY MD Nov 07, 2022 14:34
== END 2022-11-07 18:38 | disposition home or self-care (01) | DRG 872 ==
LOC: EDUNIT# 19:20 → ER FS 19:24 → ICU 11-05 00:22 → 4TH 11-05 16:31
PROVIDERS: ADMIT Internal Medicine; ATTEND Family Medicine
DX: A41.9 Sepsis, unspecified organism (principal); E87.1 Hypo-osmolality and hyponatremia; N30.01 Acute cystitis with hematuria; I48.20 Chronic atrial fibrillation, unspecified; E87.6 Hypokalemia; E78.00 Pure hypercholesterolemia, unspecified; I10 Essential (primary) hypertension; F03.90 Unspecified dementia, unspecified severity, without behavioral disturbance, psychotic disturbance, mood disturbance, and anxiety; Z20.822 Contact with and (suspected) exposure to COVID-19
CPT/HCPCS: 36415; 70450; 71045; 80053; 81000; 83735; 83880; 84100; 84484; 85007; 85025; 85027; 85379; 85610; 85730; 87077; 87081; 87088; 87186; 87636; 93005; 93041; 93306; 94760

== ENCOUNTER 2022-12-16 03:38 | Emergency (ER) | payer MEDICARE, OTHER ==
[~2022-12-16] VITALS: Ht 162.5 cm; Wt 74.8 kg
[~2022-12-16 03:38] MED LIST changes: +AMLO-251 PO; +CALC600T91 PO; +CEPH500C PO; +CITA20TA9 PO; +HYDR25TA4 PO; +IBUP-844 PO; +LOVA20TA2 PO; +METO200T48 PO; +MULT-1136 PO; +MV-M1CAP24 PO; +OMEP20CA18 PO; +OXYB5TAB13 PO; +POTA-177 PO; +WARF-47 PO
--- NOTE | 2022-12-16 03:51 | ED Cough/URI ---
General Stated Complaint: UPPER BACK PAIN/COUGH History of Present Illness Date Seen by Provider: Dec 16, 2022 Time Seen by Provider: 03:50 Initial Comments 87-year-old female presents with a couple days of cough, body aches, subjective fever. Patient has chronic right upper back pain that is worse because of the cough. No shortness of breath, nausea vomiting or diarrhea. Allergies and Home Medications Allergies Coded Allergies: penicillin G (Verified Allergy, Unknown, 05/30/19) Patient Home Medication List Home Medication List Reviewed: Yes Amlodipine Besylate (Amlodipine Besylate) 10 Mg Tablet, 10 MG PO DAILY, (Reported) Entered as Reported by: TEDDY LY on 11/05/22 1345 Benzonatate (Tessalon Perles) 100 Mg Capsule, 100 MG PO TID Prescribed by: JASWINDER FLORES on 12/16/22 0440 Calcium Carbonate (Calcium) 600 Mg Calcium (1500 Mg) Tablet, 600 MG PO DAILY, (Reported) Entered as Reported by: RACHELLE SEAMAN on 11/07/22 0907 Cephalexin (Cephalexin) 500 Mg Capsule, 500 MG PO BID Prescribed by: PAUL SKY on 11/07/22 1433 Citalopram Hydrobromide (Citalopram HBr) 20 Mg Tablet, 20 MG PO HS, (Reported) Entered as Reported by: TEDDY LY on 11/05/22 1347 Hydrochlorothiazide (Hydrochlorothiazide) 25 Mg Tablet, 25 MG PO DAILY, (Reported) Entered as Reported by: TEDDY LY on 11/05/22 1346 Ibuprofen (Ibu) 600 Mg Tablet, 600 MG PO DAILY PRN for PAIN-MILD (1-4), (Reported) Entered as Reported by: RACHELLE SEAMAN on 11/07/22 0907 Lovastatin (Lovastatin) 20 Mg Tablet, 20 MG PO HS, (Reported) Entered as Reported by: TEDDY LY on 11/05/22 1347 Metoprolol Succinate (Metoprolol Succinate) 200 Mg Tab.er.24h, 200 MG PO HS, (Reported) Entered as Reported by: TEDDY LY on 11/05/22 1345 Multivitamin (Multivitamin) 1 Each Tablet, 1 EACH PO DAILY, (Reported) Entered as Reported by: RACHELLE SEAMAN on 11/07/22 0908 Mv-Mn/Om3/Dha/Epa/Fish/Lut/Justine (Ocuvite Adult 50 Plus Softgel) 250 Mg (90 Mg-160 Mg)-5 Mg-1 Mg Capsule, 1 EACH PO DAILY, (Reported) Entered as Reported by: RACHELLE SEAMAN on 11/07/22 0909 Omeprazole (Omeprazole) 20 Mg Capsule.dr, 20 MG PO HS, (Reported) Entered as Reported by: RACHELLE SEAMAN on 11/07/22 0907 Oxybutynin Chloride (Oxybutynin Chloride) 5 Mg Tablet, 5 MG PO BID, (Reported) Entered as Reported by: TEDDY LY on 11/05/22 1355 Potassium Chloride (Potassium Chloride) 10 Meq Tab.er.prt, 10 MEQ PO BID, (Reported) Entered as Reported by: TEDDY LY on 11/05/22 1355 Warfarin Sodium (Warfarin Sodium) 2 Mg Tablet, 2 MG PO DAILY, (Reported) Entered as Reported by: TEDDY LY on 11/05/22 1345 Review of Systems Review of Systems Constitutional: chills, fever, malaise EENTM: no symptoms reported Respiratory: cough; No short of breath Cardiovascular: No chest pain, No palpitations Gastrointestinal: No abdominal pain, No nausea, No vomiting Musculoskeletal: back pain Skin: no symptoms reported Past Busajms-Oleksg-Yzetmm Hx Seasonal Allergies Seasonal Allergies: No Past Medical History Surgery/Hospitalization HX: A-Fib Surgeries: Yes Gallbladder Respiratory: No Cardiac: Yes Atrial Fibrillation, High Cholesterol, Hypertension Neurological: No Genitourinary: No Gastrointestinal: No Musculoskeletal: No Endocrine: No HEENT: No Cancer: No Psychosocial: No Integumentary: No Blood Disorders: No Physical Exam Vital Signs - First Documented 12/16/22 03:43 Temp 37.2 Pulse 77 Resp 18 B/P (MAP) 139/65 (89) Pulse Ox 95 O2 Delivery Room Air Capillary Refill : Height: '" Weight: lbs. oz. kg; 27.02 BMI Method: General Appearance: WD/WN, no apparent distress Respiratory: lungs clear, normal breath sounds, other (Mild tenderness pos terior upper right thoracic wall) Cardiovascular: normal peripheral pulses, regular rate, rhythm Gastrointestinal: non tender, soft Extremities: normal range of motion, non-tender Neurologic/Psychiatric: alert, normal mood/affect, oriented x 3 Progress/Results/Core Measures Suspected Sepsis SIRS Temperature: Pulse: Respiratory Rate: Laboratory Tests 12/16/22 03:58: White Blood Count 7.2 Blood Pressure / Mean: Laboratory Tests 12/16/22 03:58: Creatinine 0.71, Platelet Count 163, Total Bilirubin 0.6 Results/Orders Lab Results Laboratory Tests Test 12/16/22 03:58 Range/Units White Blood Count 7.2 4.3-11.0 10^3/uL Red Blood Count 4.10 3.80-5.11 10^6/uL Hemoglobin 12.8 11.5-16.0 g/dL Hematocrit 38 35-52 % Mean Corpuscular Volume 94 80-99 fL Mean Corpuscular Hemoglobin 31 25-34 pg Mean Corpuscular Hemoglobin Concent 33 32-36 g/dL Red Cell Distribution Width 15.1 H 10.0-14.5 % Platelet Count 163 130-400 10^3/uL Mean Platelet Volume 11.3 9.0-12.2 fL Immature Granulocyte % (Auto) 0 % Neutrophils (%) (Auto) 81 H 42-75 % Lymphocytes (%) (Auto) 8 L 12-44 % Monocytes (%) (Auto) 10 0-12 % Eosinophils (%) (Auto) 0 0-10 % Basophils (%) (Auto) 0 0-10 % Neutrophils # (Auto) 5.8 1.8-7.8 10^3/uL Lymphocytes # (Auto) 0.6 L 1.0-4.0 10^3/uL Monocytes # (Auto) 0.7 0.0-1.0 10^3/uL Eosinophils # (Auto) 0.0 0.0-0.3 10^3/uL Basophils # (Auto) 0.0 0.0-0.1 10^3/uL Immature Granulocyte # (Auto) 0.0 0.0-0.1 10^3/uL Neutrophils % (Manual) 80 % Lymphocytes % (Manual) 8 % Monocytes % (Manual) 4 % Band Neutrophils 2 % Atypical Lymphocytes 4 % Reactive Lymphocytes 2 % Toxic Granulation 1+ Platelet Estimate NORMAL Blood Morphology Comment NORMAL Sodium Level 133 L 135-145 MMOL/L Potassium Level 2.8 L 3.6-5.0 MMOL/L Chloride Level 94 L 98-107 MMOL/L Carbon Dioxide Level 26 21-32 MMOL/L Anion Gap 13 5-14 MMOL/L Blood Urea Nitrogen 16 7-18 MG/DL Creatinine 0.71 0.60-1.30 MG/DL Estimat Glomerular Filtration Rate 83 BUN/Creatinine Ratio 23 Glucose Level 128 H 70-105 MG/DL Calcium Level 9.7 8.5-10.1 MG/DL Corrected Calcium 9.8 8.5-10.1 MG/DL Total Bilirubin 0.6 0.1-1.0 MG/DL Aspartate Amino Transf (AST/SGOT) 25 5-34 U/L Alanine Aminotransferase (ALT/SGPT) 16 0-55 U/L Alkaline Phosphatase 88 40-136 U/L Total Protein 7.0 6.4-8.2 GM/DL Albumin 3.9 3.2-4.5 GM/DL Influenza Type A (RT-PCR) Not Detected Not Detecte Influenza Type B (RT-PCR) Not Detected Not Detecte SARS-CoV-2 RNA (RT-PCR) Detected H Not Detecte My Orders Orders - JASWINDER FLORES DO Cbc With Automated Diff (12/16/22 03:54) Comprehensive Metabolic Panel (12/16/22 03:54) Chest Pa/Lat (2 View) (12/16/22 03:54) Influenza A And B By Pcr (12/16/22 03:54) Covid 19 Inhouse Test (12/16/22 03:54) Benzonatate Capsule (Tessalon Perles) (12/16/22 04:00) Ketorolac Injection (Toradol Injection) (12/16/22 03:54) Ed Iv/Invasive Line Start (12/16/22 04:14) Manual Differential (12/16/22 03:58) Medications Given in ED Current Medications Medications Dose Ordered Sig/Maranda Route Start Time Stop Time Status Last Admin Dose Admin Benzonatate 100 mg ONCE ONCE PO 12/16/22 04:00 12/16/22 04:01 DC 12/16/22 04:05 100 MG Vital Signs/I&O 12/16/22 12/16/22 03:43 04:50 Temp 37.2 Pulse 77 82 Resp 18 18 B/P (MAP) 139/65 (89) 134/68 Pulse Ox 95 96 O2 Delivery Room Air Room Air Capillary Refill : Progress Note : Progress Note Patient's diagnostic studies were ordered and reviewed interpreted by me. Pat ient shows no white count. Patient is positive for COVID. Discussed with her supportive care. Patient was mildly decreased potassium. Recommend she follow- up with her primary care provider to have this rechecked next week and use potassium supplement.. Patient's x-ray was reviewed initial interpretation negative by me with final interpretation per radiology report. Patient was prescribed Tessalon Perles to help with the cough.. She was stable and discharged home. Departure Impression Primary Impression: COVID-19 Additional Impression: Hypokalemia Disposition: HOME, SELF-CARE Condition: Stable Departure-Patient Inst. Referrals: ARVIND WEINSTEIN MD (PCP/Family) Primary Care Physician Patient Instructions: Acute Bronchitis, Adult (DC), COVID-19 ED Add. Discharge Instructions: Tylenol are ibuprofen as needed for discomfort. 4% topical lidocaine with menthol to posterior back as needed for discomfort. Follow-up with your primary care provider about a week to recheck your symptoms sooner if they worsen. Scripts Benzonatate (TESSALON PERLES) 100 Mg Capsule 100 MG PO TID for Cough, #15 CAP Prov: JASWINDER FLORES DO 12/16/22 JASWINDER FLORES DO Dec 16, 2022 03:50
[2022-12-16] MEDS ORDERED: KETOROLAC 30 MG/ML VIAL IVP STA (03:54)
[2022-12-16] MEDS ORDERED: BENZONATATE 100 MG (TESSALON) CAPSULE PO ONE (04:00)
[2022-12-16 04:17] LABS: BASOPHILS % (AUTO) 0 % (0-10); EOSINOPHILS % (AUTO) 0 % (0-10); HEMATOCRIT 38 % (35-52); HEMOGLOBIN 12.8 g/dL (11.5-16.0); LYMPHOCYTES # (AUTO) 0.6 10^3/uL (1.0-4.0); LYMPHOCYTES % (AUTO) 8 % (12-44); MEAN CORPUSCULAR HEMOGLOBIN 31 pg (25-34); MEAN CORPUSCULAR HGB CONC 33 g/dL (32-36); MEAN CORPUSCULAR VOLUME 94 fL (80-99); MEAN PLATELET VOLUME 11.3 fL (9.0-12.2); MONOCYTES # (AUTO) 0.7 10^3/uL (0.0-1.0); MONOCYTES % (AUTO) 10 % (0-12); NEUTROPHILS # (AUTO) 5.8 10^3/uL (1.8-7.8); NEUTROPHILS % (AUTO) 81 % (42-75); PLATELET COUNT 163 10^3/uL (130-400); WHITE BLOOD COUNT 7.2 10^3/uL (4.3-11.0)
[2022-12-16] MEDS ORDERED: BENZ100C18 PO (04:40)
[2022-12-16] MEDS ORDERED: AZIT250T12 PO (04:40)
[2022-12-16 04:44] LABS: NEUTROPHILS % (MANUAL) 80 %
[2022-12-16 04:45] LABS: ATYPICAL LYMPHOCYTES 4 %; BAND NEUTROPHILS 2 %; LYMPHOCYTES % (MANUAL) 8 %; MONOCYTES % (MANUAL) 4 %; PLATELET ESTIMATE NORMAL; RBC MORPH NORMAL; REACTIVE LYMPHOCYTES 2 %; TOXIC GRANULATION/VACUOLAZATIO 1+
[2022-12-16 04:47] LABS: POTASSIUM 2.8 MMOL/L (3.6-5.0)
[2022-12-16 04:48] LABS: ALBUMIN 3.9 GM/DL (3.2-4.5); BILIRUBIN,TOTAL 0.6 MG/DL (0.1-1.0); CALCIUM 9.7 MG/DL (8.5-10.1); CREATININE SERUM 0.71 MG/DL (0.60-1.30)
[2022-12-16 04:50] VITALS: BP 134/68
--- NOTE | 2022-12-16 06:51 | Diagnostic Imaging Report ---
HISTORY: Cough TECHNIQUE: 2 views of the chest. COMPARISON: 11/04/2022 FINDINGS: Lung volumes are mildly large. No consolidation is seen. There is no pleural effusion or pneumothorax. There is stable mild cardiomegaly. There is aortic atherosclerosis. IMPRESSION: 1. No acute pulmonary abnormality. 2. Stable cardiomegaly. Dictated by: Dictated on workstation # [id number]
== END 2022-12-16 04:52 | disposition home or self-care (01) ==
LOC: EDUNIT# 03:38 → ER FS 03:42
DX: U07.1 COVID-19 (principal); E87.6 Hypokalemia; R05.9 Cough, unspecified; R50.9 Fever, unspecified; M79.10 Myalgia, unspecified site; M54.6 Pain in thoracic spine
CPT/HCPCS: 36415; 71046; 80053; 85007; 85027; 87636

== ENCOUNTER 2023-04-09 18:33 | Emergency (ER) | payer MEDICARE, OTHER ==
[~2023-04-09 18:33] MED LIST changes: +AZIT250T12 PO; +BENZ100C18 PO
--- NOTE | 2023-04-09 18:52 | ED Fall/Injury ---
General Chief Complaint: Head/Cervical Problems Stated Complaint: FALL Nursing Triage Note: PT TRIPPED IN THE YARD AND FELL AND HIT THE BACK OF HER HEAD. SHE IS ON COUMADIN. FAMILY REPORTED TO EMS THAT SHE DID NOT LOSE CONSCIOUSNESS. Source: patient, EMS History of Present Illness Date Seen by Provider: Apr 09, 2023 Time Seen by Provider: 18:35 Initial Comments 88-year-old female presenting with complaints of falling in the yard and hitting the back of her head. EMS transferred her here to the emergency department. She reportedly did not have any loss of consciousness but has some baseline dementia. She does take Coumadin as a blood thinner. She denies any nausea, vomiting, change in vision, headache. She states that she has a stinging sensation to the back of her scalp where there is some gauze. She denies other injuries or pain. Occurred: just prior to arrival Severity: mild Injuries/Pain Location: head (Occiput mild swelling and bleeding.) Context: lost balance Loss of Consciousness: no loss of consciousness Modifying Factors: Worse With Movement Associated Symptoms (Fall): No Abdominal Pain, No Chest Pain, No Dizziness, No Lightheadedness, No Muscle Spasms, No Nausea/Vomiting, No Neck Pain, No Ringing in Ears, No Seizures, No Shortness of Air, No Slurred Speech, No Trouble Walking, No Vision Changes Allergies and Home Medications Allergies Coded Allergies: penicillin G (Verified Allergy, Unknown, 05/30/19) Patient Home Medication List Home Medication List Reviewed: Yes Amlodipine Besylate (Amlodipine Besylate) 10 Mg Tablet, 10 MG PO DAILY, (Reported) Entered as Reported by: TEDDY LY on 11/05/22 1345 Benzonatate (Tessalon Perles) 100 Mg Capsule, 100 MG PO TID Prescribed by: JASWINDER FLORES on 12/16/22 0440 Calcium Carbonate (Calcium) 600 Mg Calcium (1500 Mg) Tablet, 600 MG PO DAILY, (Reported) Entered as Reported by: RACHELLE SEAMAN on 11/07/22 0907 Cephalexin (Cephalexin) 500 Mg Capsule, 500 MG PO BID Prescribed by: PAUL SKY on 11/07/22 1433 Cephalexin (Cephalexin) 500 Mg Capsule, 500 MG PO TID Prescribed by: WIN LANDRY on 04/09/232014 Citalopram Hydrobromide (Citalopram HBr) 20 Mg Tablet, 20 MG PO HS, (Reported) Entered as Reported by: TEDDY LY on 11/05/22 1347 Hydrochlorothiazide (Hydrochlorothiazide) 25 Mg Tablet, 25 MG PO DAILY, (Reported) Entered as Reported by: TEDDY LY on 11/05/22 1346 Ibuprofen (Ibu) 600 Mg Tablet, 600 MG PO DAILY PRN for PAIN-MILD (1-4), (Reported) Entered as Reported by: RACHELLE SAEMAN on 11/07/22 0907 Lovastatin (Lovastatin) 20 Mg Tablet, 20 MG PO HS, (Reported) Entered as Reported by: TEDDY LY on 11/05/22 1347 Metoprolol Succinate (Metoprolol Succinate) 200 Mg Tab.er.24h, 200 MG PO HS, (Reported) Entered as Reported by: TEDDY LY on 11/05/22 1345 Multivitamin (Multivitamin) 1 Each Tablet, 1 EACH PO DAILY, (Reported) Entered as Reported by: RACHELLE SEAMAN on 11/07/22 0908 Mv-Mn/Om3/Dha/Epa/Fish/Lut/Justine (Ocuvite Adult 50 Plus Softgel) 250 Mg (90 Mg-160 Mg)-5 Mg-1 Mg Capsule, 1 EACH PO DAILY, (Reported) Entered as Reported by: RACHELLE SEAMAN on 11/07/22 0909 Omeprazole (Omeprazole) 20 Mg Capsule.dr, 20 MG PO HS, (Reported) Entered as Reported by: RACHELLE SEAMAN on 11/07/22 0907 Oxybutynin Chloride (Oxybutynin Chloride) 5 Mg Tablet, 5 MG PO BID, (Reported) Entered as Reported by: TEDDY LY on 11/05/22 1355 Potassium Chloride (Potassium Chloride) 10 Meq Tab.er.prt, 10 MEQ PO BID, (Reported) Entered as Reported by: TEDDY LY on 11/05/22 1355 Warfarin Sodium (Warfarin Sodium) 2 Mg Tablet, 2 MG PO DAILY, (Reported) Entered as Reported by: TEDDY LY on 11/05/22 1345 Review of Systems Review of Systems Constitutional: No chills, No dizziness, No fever Eyes: Denies Blurred Vision, Denies Photophobia, Denies Vision Changes Ears, Nose, Mouth, Throat: denies ear pain, denies ear discharge, denies nose pain, denies nose discharge, denies epistaxis Respiratory: no symptoms reported Cardiovascular: no symptoms reported Gastrointestinal: no symptoms reported Genitourinary: no symptoms reported Musculoskeletal: no symptoms reported Skin: see HPI Psychiatric/Neurological: See HPI Past Hejkmgx-Bdgsyp-Yyyofa Hx Patient Social History Tobacco Use?: No Use of E-Cig and/or Vaping dev: No Substance use?: No Alcohol Use?: No Pt feels they are or have been: No Seasonal Allergies Seasonal Allergies: No Past Medical History Surgery/Hospitalization HX: A-Fib Surgeries: Yes Gallbladder Respiratory: No Cardiac: Yes Atrial Fibrillation, High Cholesterol, Hypertension Neurological: No Genitourinary: No Gastrointestinal: No Musculoskeletal: No Endocrine: No HEENT: No Cancer: No Psychosocial: No Integumentary: No Blood Disorders: No Physical Exam Vital Signs Vital Signs - First Documented 04/09/23 18:40 Temp 36.1 Pulse 84 Resp 16 B/P (MAP) 131/73 (92) Pulse Ox 95 O2 Delivery Room Air Capillary Refill : Less Than 3 Seconds Height, Weight, BMI Height: '" Weight: lbs. oz. 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 There is no active bleeding seen.) Progress/Results/Core Measures Results/Orders Lab Results Laboratory Tests Test 04/09/23 18:55 04/09/23 19:43 Range/Units Prothrombin Time 26.6 H 12.2-14.7 SEC INR Comment 2.4 H 0.8-1.4 Urine Color YELLOW Urine Clarity TURBID Urine pH 7.0 5-9 Urine Specific [place] 1.015 L 1.016-1.022 Urine Protein 2+ H NEGATIVE Urine Glucose (UA) NEGATIVE NEGATIVE Urine Ketones NEGATIVE NEGATIVE Urine Nitrite POSITIVE H NEGATIVE Urine Bilirubin NEGATIVE NEGATIVE Urine Urobilinogen 0.2 < = 1.0 MG/DL Urine Leukocyte Esterase 3+ H NEGATIVE Urine RBC (Auto) 2+ H NEGATIVE Urine RBC /HPF Urine WBC TNTC H /HPF Urine Crystals NONE /LPF Urine Bacteria /HPF Urine Casts NONE /LPF Urine Mucus NEGATIVE /LPF Urine Culture Indicated YES My Orders Orders - WIN LANDRY MD Ct Head/Cervical Spine Wo (04/09/23 18:36) Protime With Inr (04/09/23 18:46) Ua Culture If Indicated (04/09/23 18:46) Ed Iv/Invasive Line Start (04/09/23 19:00) Ice: Apply To Affected Area (04/09/23 19:09) Head Of Bed Q4H (04/09/23 19:09) Urine Culture (04/09/23 19:43) Cephalexin Capsule (Keflex Capsule) (04/09/23 20:03) Vital Signs/I&O 04/09/23 04/09/23 18:40 20:09 Temp 36.1 Pulse 84 63 Resp 16 16 B/P (MAP) 131/73 (92) 139/66 Pulse Ox 95 94 O2 Delivery Room Air Room Air Blood Pressure Mean: 92 Progress Progress Note #1: Progress Note Potential diagnosis of intracranial hemorrhage, skull fracture, skull contusion, scalp abrasion, scalp laceration. Obtain pro time and INR as labs since she takes the Coumadin. Clean the wound on the back of her head to see if there is anything that needs to be stitched or if it is just an abrasion and contusion. CT scan of the head and cervical spine looking for acute intracranial hemorrhage or fractures. Progress Note #2: Time: 19:08 Progress Note On my personal review and interpretation I did not appreciate any acute fracture or intracranial hemorrhage on the CT head and cervical spine without IV contrast. Progress Note #3: Time: 19:56 Progress Note On my review of the radiologist report on the CT head and cervical spine they did not appreciate any acute intracranial hemorrhage or fractures. There is a scalp hematoma. The urinalysis did not show nitrites and numerous white blood cell count and bacteria consistent with UTI. Based on her last urine culture in our electronic medical record from November 07, 2022 she had E. coli that was pansensitive except ampicillin. Will treat with cephalexin since she takes the Coumadin or warfarin so that that would have the least effect on the blood thinner. Currently her INR is 2.4 so she is in a therapeutic range but not supratherapeutic. Encouraged to check back with the clinic, use ice and elevation of the head to help with the pain and abrasion to the scalp. Keep the abrasion clean with soap and water. May apply an antibiotic ointment 2-3 times a day as needed. Take the full course of antibiotics to treat for the urine infection. Diagnostic Imaging Diagonstic Imaging: CT Plain Films/CT/US/NM/MRI: c-spine, head Comments NAME: KRYS ARSHAD [facility] REC#: [id number] PT STATUS: REG ER : 1935 PHYSICIAN: WIN LANDRY MD ADMIT DATE: 04/09/23/ER FS Draft Date of Exam:04/09/23 CT HEAD/CERVICAL SPINE WO PROCEDURE: CT head and CT cervical spine without contrast. TECHNIQUE: Multiple contiguous axial images were obtained through the brain and cervical spine without the use of intravenous contrast. Sagittal and coronal reformations through the cervical spine were then performed. Auto Exposure Controls were utilized during the CT exam to meet ALARA standards for radiation dose reduction. INDICATION: Fall, head and neck injury, on blood thinners, scalp laceration COMPARISON: 11/04/2022 FINDINGS: CT HEAD: Ventricles and cortical sulci are diffusely prominent. There is no midline shift or mass effect. No acute intracranial hemorrhage is seen. There is no CT evidence of acute territorial ischemia. There are scattered areas of hypoattenuation in the white matter which are likely from chronic microvascular disease. The calvarium appears intact. Visualized paranasal sinuses are clear. There is leftward deviation of the nasal septum. There is a small posterior scalp hematoma and laceration. CT CERVICAL SPINE: There is grade 1 anterolisthesis at C4-C5. There is grade 1 anterolisthesis at C5-C6. Vertebral body heights are preserved and no acute fracture is seen. There is mild disc height loss at multiple levels with mild multilevel degenerative change. There is multilevel facet arthropathy as well. No acute fracture is seen. No bony fragments or hyperdense fluid collections are seen in the spinal canal. Surrounding soft tissues demonstrate no acute abnormality. IMPRESSION: 1. Small posterior scalp hematoma and laceration. No calvarium fracture or acute intracranial hemorrhage. 2. Generalized parenchymal volume loss and findings of chronic microvascular disease. 3. Degenerative changes in the cervical spine with no fracture seen. Dictated on workstation # [id number] Dict: 04/09/231912 Trans: 04/09/231917 [facility] [id number] Interpreted by: SHERICE PAULINO MD Electronically signed by: Reviewed: Reviewed by Me Departure Impression Primary Impression: Acute cystitis with hematuria Additional Impressions: Closed head injury without loss of consciousness Qualified Codes: S09.90XA - Unspecified injury of head, initial encounter Hematoma of occipital region of scalp Scalp abrasion Qualified Codes: S00.01XA - Abrasion of scalp, initial encounter Fall at home Qualified Codes: W19.XXXA - Unspecified fall, initial encounter; Y92.009 - Unspecified place in unspecified non-institutional (private) residence as the place of occurrence of the external cause Disposition: HOME, SELF-CARE Condition: Stable Departure-Patient Inst. Decision time for Depature: 20:01 Referrals: ARVIND WEINSTEIN MD (PCP/Family) Primary Care Physician Patient Instructions: Preventing Falls ED, Minor Head Injury, Adult ED, Urinary Tract Infection, Adult ED Add. Discharge Instructions: Use ice and elevation of the head to help with the pain and abrasion to the scalp. Keep the abrasion clean with soap and water. May apply an antibiotic ointment 2-3 times a day as needed. Take the full course of antibiotics to treat for the urine infection. Try to drink more water and stay well hydrated. All discharge instructions reviewed with patient and/or family. Voiced understanding. Scripts Cephalexin (Cephalexin) 500 Mg Capsule 500 MG PO TID for UTI for 5 Days, #15 CAP 0 Refills Prov: WIN LANDRY MD 04/09/23 WIN LANDRY MD Apr 09, 2023 18:52
[2023-04-09 19:18] LABS: INR 2.4 (0.8-1.4); PROTHROMBIN TIME PATIENT 26.6 SEC (12.2-14.7)
--- NOTE | 2023-04-09 19:18 | Diagnostic Imaging Report ---
PROCEDURE: CT head and CT cervical spine without contrast. TECHNIQUE: Multiple contiguous axial images were obtained through the brain and cervical spine without the use of intravenous contrast. Sagittal and coronal reformations through the cervical spine were then performed. Auto Exposure Controls were utilized during the CT exam to meet ALARA standards for radiation dose reduction. INDICATION: Fall, head and neck injury, on blood thinners, scalp laceration COMPARISON: 11/04/2022 FINDINGS: CT HEAD: Ventricles and cortical sulci are diffusely prominent. There is no midline shift or mass effect. No acute intracranial hemorrhage is seen. There is no CT evidence of acute territorial ischemia. There are scattered areas of hypoattenuation in the white matter which are likely from chronic microvascular disease. The calvarium appears intact. Visualized paranasal sinuses are clear. There is leftward deviation of the nasal septum. There is a small posterior scalp hematoma and laceration. CT CERVICAL SPINE: There is grade 1 anterolisthesis at C4-C5. There is grade 1 anterolisthesis at C5-C6. Vertebral body heights are preserved and no acute fracture is seen. There is mild disc height loss at multiple levels with mild multilevel degenerative change. There is multilevel facet arthropathy as well. No acute fracture is seen. No bony fragments or hyperdense fluid collections are seen in the spinal canal. Surrounding soft tissues demonstrate no acute abnormality. IMPRESSION: 1. Small posterior scalp hematoma and laceration. No calvarium fracture or acute intracranial hemorrhage. 2. Generalized parenchymal volume loss and findings of chronic microvascular disease. 3. Degenerative changes in the cervical spine with no fracture seen. Dictated by: Dictated on workstation # [id number]
[2023-04-09 19:47] LABS: BILIRUBIN,URINE NEGATIVE (NEGATIVE); COLOR,URINE YELLOW; GLUCOSE, URINE (UA) NEGATIVE (NEGATIVE); KETONES,URINE NEGATIVE (NEGATIVE); LEUKOCYTE ESTERASE ,URINE 3+ (NEGATIVE); NITRITE,URINE POSITIVE (NEGATIVE); PROTEIN,URINE 2+ (NEGATIVE)
[2023-04-09 19:49] LABS: CLARITY,URINE TURBID; WBC,URINE TNTC /HPF
[2023-04-09] MEDS ORDERED: CEPH500C PO ×2 (20:02→20:15)
[2023-04-09] MEDS ORDERED: CEPHALEXIN 250 MG CAPSULE PO STA (20:03)
[2023-04-09 20:09] VITALS: BP 139/66
== END 2023-04-09 20:13 | disposition home or self-care (01) ==
LOC: EDUNIT# 18:33 → ER FS 18:34
DX: S00.90XA Unspecified superficial injury of unspecified part of head, initial encounter (principal); S00.03XA Contusion of scalp, initial encounter; N30.01 Acute cystitis with hematuria; Z88.0 Allergy status to penicillin; Z79.01 Long term (current) use of anticoagulants; W01.10XA Fall on same level from slipping, tripping and stumbling with subsequent striking against unspecified object, initial encounter; Y92.096 Garden or yard of other non-institutional residence as the place of occurrence of the external cause
CPT/HCPCS: 36415; 70450; 72125; 81000; 85610; 87077; 87088; 87186

== ENCOUNTER 2023-04-16 20:38 | Emergency (ER) | payer MEDICARE, OTHER ==
[~2023-04-16] VITALS: Ht 162.5 cm; Wt 75.0 kg
--- NOTE | 2023-04-16 20:56 | ED Fall/Injury ---
General Stated Complaint: HEAD INJ Source: patient, family Exam Limitations: no limitations History of Present Illness Date Seen by Provider: Apr 16, 2023 Time Seen by Provider: 20:42 Initial Comments 88-year-old female with past medical history most pertinent for A-fib on anticoagulation coming in after she lost her balance, landed backwards and hit the back of her head on the ground. This occurred at 7:30 PM tonight. She did not pass out, only has a mild headache, but does endorse hematoma to the back of her head. She remembers all of the events. Denies any neck or back pain and has been ambulatory since the incident. She has been discussing the potential for physical therapy to work on her quad strength with her primary care provider. Allergies and Home Medications Allergies Coded Allergies: penicillin G (Verified Allergy, Unknown, 05/30/19) Patient Home Medication List Home Medication List Reviewed: Yes Amlodipine Besylate (Amlodipine Besylate) 10 Mg Tablet, 10 MG PO DAILY, (Reported) Entered as Reported by: TEDDY LY on 11/05/22 1345 Benzonatate (Tessalon Perles) 100 Mg Capsule, 100 MG PO TID Prescribed by: JASWINDER FLORES on 12/16/22 0440 Calcium Carbonate (Calcium) 600 Mg Calcium (1500 Mg) Tablet, 600 MG PO DAILY, (Reported) Entered as Reported by: RACHELLE SEAMAN on 11/07/22 0907 Cephalexin (Cephalexin) 500 Mg Capsule, 500 MG PO BID Prescribed by: PAUL SKY on 11/07/22 1433 Cephalexin (Cephalexin) 500 Mg Capsule, 500 MG PO TID Prescribed by: WIN LANDRY on 04/09/232014 Citalopram Hydrobromide (Citalopram HBr) 20 Mg Tablet, 20 MG PO HS, (Reported) Entered as Reported by: TEDDY LY on 11/05/22 1347 Hydrochlorothiazide (Hydrochlorothiazide) 25 Mg Tablet, 25 MG PO DAILY, (Reported) Entered as Reported by: TEDDY LY on 11/05/22 1346 Ibuprofen (Ibu) 600 Mg Tablet, 600 MG PO DAILY PRN for PAIN-MILD (1-4), (Reported) Entered as Reported by: RACHELLE SEAMAN on 11/07/22 0907 Lovastatin (Lovastatin) 20 Mg Tablet, 20 MG PO HS, (Reported) Entered as Reported by: TEDDY LY on 11/05/22 1347 Metoprolol Succinate (Metoprolol Succinate) 200 Mg Tab.er.24h, 200 MG PO HS, (Reported) Entered as Reported by: TEDDY LY on 11/05/22 1345 Multivitamin (Multivitamin) 1 Each Tablet, 1 EACH PO DAILY, (Reported) Entered as Reported by: RACHELLE SEAMAN on 11/07/22 0908 Mv-Mn/Om3/Dha/Epa/Fish/Lut/Justine (Ocuvite Adult 50 Plus Softgel) 250 Mg (90 Mg-160 Mg)-5 Mg-1 Mg Capsule, 1 EACH PO DAILY, (Reported) Entered as Reported by: RACHELLE SEAMAN on 11/07/22 0909 Omeprazole (Omeprazole) 20 Mg Capsule.dr, 20 MG PO HS, (Reported) Entered as Reported by: RACHELLE SEAMAN on 11/07/22 0907 Oxybutynin Chloride (Oxybutynin Chloride) 5 Mg Tablet, 5 MG PO BID, (Reported) Entered as Reported by: TEDDY LY on 11/05/22 1355 Potassium Chloride (Potassium Chloride) 10 Meq Tab.er.prt, 10 MEQ PO BID, (Reported) Entered as Reported by: TEDDY LY on 11/05/22 1355 Warfarin Sodium (Warfarin Sodium) 2 Mg Tablet, 2 MG PO DAILY, (Reported) Entered as Reported by: TEDDY LY on 11/05/22 1345 Review of Systems Review of Systems Constitutional: No fever Eyes: No Symptoms Reported Ears, Nose, Mouth, Throat: no symptoms reported Respiratory: no symptoms reported Cardiovascular: no symptoms reported Gastrointestinal: no symptoms reported Genitourinary: no symptoms reported Musculoskeletal: see HPI Skin: see HPI Psychiatric/Neurological: No Symptoms Reported Past Skpfyhx-Yhlejh-Trjybu Hx Patient Social History Tobacco Use?: No Seasonal Allergies Seasonal Allergies: No Past Medical History Surgery/Hospitalization HX: A-Fib Surgeries: Yes Gallbladder Respiratory: No Cardiac: Yes Atrial Fibrillation, High Cholesterol, Hypertension Neurological: No Genitourinary: No Gastrointestinal: No Musculoskeletal: No Endocrine: No HEENT: No Cancer: No Psychosocial: No Integumentary: No Blood Disorders: No Physical Exam Vital Signs Capillary Refill : Height, Weight, BMI Height: '" Weight: lbs. oz. kg; 28.00 BMI Method: General Appearance: WD/WN, no apparent distress HEENT: PERRL/EOMI, pharynx normal, other (Hematoma to the back of the head) Neck: non-tender, full range of motion, supple, normal inspection Cardiovascular: no edema Respiratory: chest non-tender, lungs clear, normal breath sounds, no respiratory distress, no accessory muscle use Gastrointestinal: normal bowel sounds, non tender, soft; No distended, No guard ing, No rebound Back: normal inspection, no CVA tenderness, no vertebral tenderness Extremities: normal range of motion, non-tender, normal inspection, no pedal edema, no calf tenderness, normal capillary refill Neurologic/Psychiatric: no motor/sensory deficits, alert, normal mood/affect, oriented x 3 Skin: normal color, warm/dry [place] Coma Score Best Eye Response: (4) Open Spontaneously Best Verbal Response: (5) Oriented Best Motor Response: (6) Obeys Commands Progress/Results/Core Measures Results/Orders My Orders Orders - BOAZ JACKSON MD Ct Head/Cervical Spine Wo (04/16/23 20:53) Acetaminophen Tablet (Acetaminophen Ta (04/16/23 21:00) Medications Given in ED Current Medications Medications Dose Ordered Sig/Maranda Route Start Time Stop Time Status Last Admin Dose Admin Acetaminophen 1,000 mg ONCE ONCE PO 04/16/23 21:00 04/16/23 21:01 DC 04/16/23 21:10 1,000 MG Progress Progress Note : Progress Note 88-year-old female presenting after mechanical fall hitting the back of her head. ABCs were intact and vitals were stable on presentation with a GCS of 15. She has a hematoma to the back of the head, no open wound. CT head and cervical spine will be ordered. She will be given Tylenol for pain. My interpretation of the CT head, I do not see any obvious intracranial hemorrhage. On my interpretation of the CT C-spine, I do not see any obvious fracture or dislocation. The radiologist read it as negative for any acute findings other than the hematoma to the back of her head without fracture. Patient continues to be at baseline with a normal mental status. I believe she stable for discharge with outpatient follow-up. She was sent home with strict return precautions. She is ambulating without issue and I do not believe she needs x-rays of any other extremities. Diagnostic Imaging Diagonstic Imaging: CT (head and c spine) Comments NAME: KRYS ARSHAD [facility] REC#: [id number] PT STATUS: REG ER : 1935 PHYSICIAN: BOAZ JACKSON MD ADMIT DATE: 04/16/23/ER FS Signed Date of Exam:04/16/23 CT HEAD/CERVICAL SPINE WO EXAMINATION: CT head and CT cervical spine without contrast. TECHNIQUE: Multiple contiguous axial images were obtained through the brain and cervical spine without the use of intravenous contrast. Sagittal and coronal reformations through the cervical spine were then performed. All CT scans use one or more of the following dose optimizing techniques: automated exposure control, MA and/or KvP adjustment based on patient size and exam type or iterative reconstruction. HISTORY: Head and neck pain after fall. COMPARISON: 04/09/2023. FINDINGS: HEAD: Mild diffuse cerebral volume loss with proportional enlargement of the ventricles and sulci. Mild hypodensities throughout the supratentorial white matter of both cerebral hemispheres. No acute intracranial hemorrhage or abnormal extra-axial fluid collection is present. Calcification of the intracranial ICAs. No hyperdense vessel. There is a large posterior scalp hematoma. The calvarium is intact. The mastoid air cells are clear. There is mucosal thickening of the paranasal sinuses. There are surgical changes from cataract repair. C-SPINE: There is grade 1 anterolisthesis of C4 on C5. Vertebral body heights are maintained. No acute fracture, dislocation or destructive osseous process. Multilevel facet hypertrophy without perched facets. There is multilevel cervical spondylosis. The paraspinous soft tissues are normal. The visualized thyroid gland is normal. The visualized lung apices are normal. IMPRESSION: 1. No acute intracranial abnormality. Chronic microangiopathy and volume loss. 2. Degenerative changes of the cervical spine without acute osseous abnormality. 3. Left posterior scalp hematoma without underlying calvarial fracture. Dictated by: Dictated on workstation # [id number] Dict: 04/16/232114 Trans: 04/16/232127 E [id number] Interpreted by: SANDY HAYWOOD DO Electronically signed by: SANDY HAYWOOD DO 04/16/238 Departure Impression Primary Impression: Fall Qualified Codes: W19.XXXA - Unspecified fall, initial encounter Additional Impression: Hematoma of occipital region of scalp Disposition: HOME, SELF-CARE Condition: Stable Departure-Patient Inst. Decision time for Depature: 21:35 Referrals: ARVIND WEINSTEIN MD (PCP/Family) Primary Care Physician Patient Instructions: Preventing Falls ED Add. Discharge Instructions: Fortunately there is no serious injury on the CT imaging of your head or neck. Please follow-up with your regular doctor to discuss physical therapy to help prevent falls. You can take Tylenol as needed for pain. You likely will be sore more areas tomorrow which is expected. BOAZ JACKSON MD Apr 16, 2023 20:56
[2023-04-16] MEDS ORDERED: ACETAMINOPHEN 500 MG TABLET PO ONE (21:00)
--- NOTE | 2023-04-16 21:23 | Diagnostic Imaging Report ---
EXAMINATION: CT head and CT cervical spine without contrast. TECHNIQUE: Multiple contiguous axial images were obtained through the brain and cervical spine without the use of intravenous contrast. Sagittal and coronal reformations through the cervical spine were then performed. All CT scans use one or more of the following dose optimizing techniques: automated exposure control, MA and/or KvP adjustment based on patient size and exam type or iterative reconstruction. HISTORY: Head and neck pain after fall. COMPARISON: 04/09/2023. FINDINGS: HEAD: Mild diffuse cerebral volume loss with proportional enlargement of the ventricles and sulci. Mild hypodensities throughout the supratentorial white matter of both cerebral hemispheres. No acute intracranial hemorrhage or abnormal extra-axial fluid collection is present. Calcification of the intracranial ICAs. No hyperdense vessel. There is a large posterior scalp hematoma. The calvarium is intact. The mastoid air cells are clear. There is mucosal thickening of the paranasal sinuses. There are surgical changes from cataract repair. C-SPINE: There is grade 1 anterolisthesis of C4 on C5. Vertebral body heights are maintained. No acute fracture, dislocation or destructive osseous process. Multilevel facet hypertrophy without perched facets. There is multilevel cervical spondylosis. The paraspinous soft tissues are normal. The visualized thyroid gland is normal. The visualized lung apices are normal. IMPRESSION: 1. No acute intracranial abnormality. Chronic microangiopathy and volume loss. 2. Degenerative changes of the cervical spine without acute osseous abnormality. 3. Left posterior scalp hematoma without underlying calvarial fracture. Dictated by: Dictated on workstation # [id number]
[2023-04-16 21:55] VITALS: BP 107/78
== END 2023-04-16 21:55 | disposition home or self-care (01) ==
LOC: EDUNIT# 20:38 → ER FS 20:39
DX: S00.03XA Contusion of scalp, initial encounter (principal); I48.91 Unspecified atrial fibrillation; Z79.01 Long term (current) use of anticoagulants; W01.198A Fall on same level from slipping, tripping and stumbling with subsequent striking against other object, initial encounter
CPT/HCPCS: 70450; 72125

== ENCOUNTER 2023-04-24 05:42 | Emergency (ER) | payer MEDICARE, OTHER ==
[2023-04-24] MEDS ORDERED: ORPHENADRINE 60 MG/2 ML (NORFLEX) AMP (ED ONLY) IM STA (06:09)
[2023-04-24] MEDS ORDERED: KETOROLAC INJ 15 MG/ML VIAL IM STA (06:09)
--- NOTE | 2023-04-24 06:19 | ED General ---
General Chief Complaint: General Problems/Pain Stated Complaint: PREVIOUS FALL| LEG AND HIP PAIN Nursing Triage Note: Pt complaining of left hip pain. Pt states she fell a week ago and that her left hip has been hurting since then Source of Information: Patient, Family (daughter) (WIN LANDRY MD) History of Present Illness Date Seen by Provider: Apr 24, 2023 Time Seen by Provider: 05:47 Initial Comments 88 yo female presenting with complaint of increasing pain to left quadriceps and bilateral wrists. She has been able to walk with her walker but has increased pain when trying to lift or flex her left leg at the hip. She states the pain is along the front of her leg and goes up into her groin. She has severe pain when she lifts that leg or anyone lifts it for her. She was having pain to both of her wrists from her most recent fall on April 16. At that time she thought that she had fallen back on her hands and set down on them. She denies another fall since being seen on April 09 for a fall and UTI and then again on April 16 for a fall. She has some pain to her low back as well. She is concerned that she might still have UTI so she wanted that checked out as well. She has not followed up with the PCP or tried to go to walk in clinic. She has been taking acetaminophen for pain and it helps some but she feels she needs something stronger to help with her pain. She did take some ibuprofen yesterday afternoon. She chronically takes Warfarin for paroxysmal atrial fibrillation. Timing/Duration: Getting Worse (left hip pain is getting worse along with linda mbar spine. The bilateral wrist pain is improving) Severity: Severe (severe when she tries to move the left leg. Just sitting in the wheelchair she denies having much pain at all) Modifying Factors: worse with Movement Associated Systoms: No Chest Pain, No Cough, No Diaphoresis, No Fever/Chills, No Headaches, No Loss of Appetite, No Malaise, No Nausea/Vomiting, No Rash, No Seizure, No Shortness of Air, No Syncope, No Weakness (WIN LANDRY MD) Allergies and Home Medications Allergies Coded Allergies: penicillin G (Verified Allergy, Unknown, 05/30/19) Patient Home Medication List Home Medication List Reviewed: Yes (WIN LANDRY MD) Amlodipine Besylate (Amlodipine Besylate) 10 Mg Tablet, 10 MG PO DAILY, (Reported) Entered as Reported by: TEDDY LY on 11/05/22 1345 Benzonatate (Tessalon Perles) 100 Mg Capsule, 100 MG PO TID Prescribed by: JASWINDER FLORES on 12/16/22 0440 Calcium Carbonate (Calcium) 600 Mg Calcium (1500 Mg) Tablet, 600 MG PO DAILY, (Reported) Entered as Reported by: RACHELLE SEAMAN on 11/07/22 0907 Cephalexin (Cephalexin) 500 Mg Capsule, 500 MG PO BID Prescribed by: PAUL SKY on 11/07/22 1433 Cephalexin (Cephalexin) 500 Mg Capsule, 500 MG PO TID Prescribed by: WIN LANDRY on 04/09/232014 Citalopram Hydrobromide (Citalopram HBr) 20 Mg Tablet, 20 MG PO HS, (Reported) Entered as Reported by: TEDDY LY on 11/05/22 1347 Hydrochlorothiazide (Hydrochlorothiazide) 25 Mg Tablet, 25 MG PO DAILY, (Reported) Entered as Reported by: TEDDY LY on 11/05/22 1346 Ibuprofen (Ibu) 600 Mg Tablet, 600 MG PO DAILY PRN for PAIN-MILD (1-4), (Reported) Entered as Reported by: RACHELLE SEAMAN on 11/07/22 0907 Lovastatin (Lovastatin) 20 Mg Tablet, 20 MG PO HS, (Reported) Entered as Reported by: TEDDY LY on 11/05/22 1347 Metoprolol Succinate (Metoprolol Succinate) 200 Mg Tab.er.24h, 200 MG PO HS, (Reported) Entered as Reported by: TEDDY LY on 11/05/22 1345 Multivitamin (Multivitamin) 1 Each Tablet, 1 EACH PO DAILY, (Reported) Entered as Reported by: RACHELLE SEAMAN on 11/07/22 0908 Mv-Mn/Om3/Dha/Epa/Fish/Lut/Justine (Ocuvite Adult 50 Plus Softgel) 250 Mg (90 Mg-160 Mg)-5 Mg-1 Mg Capsule, 1 EACH PO DAILY, (Reported) Entered as Reported by: RACHELLE SEAMAN on 11/07/22 0909 Omeprazole (Omeprazole) 20 Mg Capsule.dr, 20 MG PO HS, (Reported) Entered as Reported by: RACHELLE SEAMAN on 11/07/22 0907 Oxybutynin Chloride (Oxybutynin Chloride) 5 Mg Tablet, 5 MG PO BID, (Reported) Entered as Reported by: TEDDY LY on 11/05/22 1355 Potassium Chloride (Potassium Chloride) 10 Meq Tab.er.prt, 10 MEQ PO BID, (Reported) Entered as Reported by: TEDDY LY on 11/05/22 1355 Tramadol HCl (Tramadol HCl) 50 Mg Tablet, 50 MG PO Q8H PRN for PAIN Prescribed by: WIN LANDRY on 04/24/23 0709 Warfarin Sodium (Warfarin Sodium) 2 Mg Tablet, 2 MG PO DAILY, (Reported) Entered as Reported by: TEDDY LY on 11/05/22 1345 Review of Systems Review of Systems Constitutional: No chills, No fever EENTM: no symptoms reported Respiratory: no symptoms reported Cardiovascular: no symptoms reported Gastrointestinal: no symptoms reported Genitourinary: no symptoms reported Musculoskeletal: see HPI Skin: change in color (bruise to inside of right elbow/distal humerus) Psychiatric/Neurological: See HPI; Denies Numbness, Denies Paresthesia (WIN LANDRY MD) Past Ipabdov-Nwsnuy-Hmqghe Hx Patient Social History Tobacco Use?: No Use of E-Cig and/or Vaping dev: No Substance use?: No Alcohol Use?: No (WIN LANDRY MD) Seasonal Allergies Seasonal Allergies: No (WIN LANDRY MD) Past Medical History Surgery/Hospitalization HX: A-Fib GB Surgeries: Yes Gallbladder Respiratory: No Cardiac: Yes Atrial Fibrillation, High Cholesterol, Hypertension Neurological: No Genitourinary: No Gastrointestinal: No Musculoskeletal: No Endocrine: No HEENT: No Cancer: No Psychosocial: No Integumentary: No Blood Disorders: No (WIN LANDRY MD) Physical Exam Vital Signs Vital Signs - First Documented 04/24/23 04/24/23 05:46 07:28 Temp 36.5 Pulse 82 Resp 18 B/P (MAP) 132/70 (90) Pulse Ox 99 O2 Delivery Room Air (RONNY CLEMENTE MD) Vital Signs Capillary Refill : Less Than 3 Seconds (WIN LANDRY MD) Height, Weight, BMI Height: '" Weight: lbs. oz. kg; 28.00 BMI Method: General Appearance: No Apparent Distress, WD/WN Back: Decreased Range of Motion, Vertebral Tenderness (lumbar back pain with palpation and movement. no step off or crepitus) Extremity: Normal Capillary Refill, No Calf Tenderness, Pelvis Stable, Other (pain with hip flexion on the left side. no pain with palpation of left hip, quadriceps or pelvis) Neurologic/Psychiatric: Alert, Oriented x3, No Motor/Sensory Deficits, Normal Mood/Affect, spring coiler hand II-XII Norm as Tested Skin: Warm/Dry, Ecchymosis (right inner elbow/distal humerus on right side) (WIN LANDRY MD) Progress/Results/Core Measures Suspected Sepsis SIRS Temperature: Pulse: 82 Respiratory Rate: 18 Blood Pressure 132 /70 Mean: 90 (WIN LANDRY MD) Results/Orders Vital Signs/I&O 04/24/23 04/24/23 05:46 07:28 Temp 36.5 Pulse 82 71 Resp 18 17 B/P (MAP) 132/70 (90) 131/72 Pulse Ox 99 98 O2 Delivery Room Air Room Air (RONNY CLEMENTE MD) Vital Signs/I&O Capillary Refill : Less Than 3 Seconds (WIN LANDRY MD) Blood Pressure Mean: 90 Progress Note #1: Progress Note Potential diagnosis of compression fracture lumbar spine, pelvic fracture, hip fracture, pubic ramus fracture, muscle strain, bilateral wrist fracture. Obtain urine specimen to check and see if she still has UTI from April 09. CT scan of the lumbar spine and pelvis to look for acute compression fracture or pelvis fracture or hip fracture. Bilateral x-rays of the wrist looking for acute fracture or bony abnormality. For pain will administer Toradol 15 mg IM x1 along with Norflex 30 mg IM x1 for muscle spasms and strain. Progress Note #2: Time: 06:44 Progress Note I reviewed the radiologist report on the CT scan of the lumbar spine and pelvis without IV contrast. They felt that there was a hematoma in the iliac portion of the iliopsoas muscle on the left side. This is likely contributing to her pain. She also had findings for age-indeterminate L3 compression fracture. There was some mild inflammation around the colon on the left side that could be from the fall and hematoma versus diverticulitis. Patient was not having any signs or symptoms of diverticulitis so this is likely more related to the inflammation from the fall and the hematoma. She still has not been able to provide a urine specimen as of yet. Could prescribe tramadol for pain so she had something more than Tylenol to take at home. She is trying to avoid taking NSAIDs since she has the warfarin that she takes chronically for her paroxysmal atrial fibrillation. She will need to follow-up with the clinic about the injuries and they may need to set her up for some physical therapy to help with strengthening and healing from her recurrent falls. Progress Note #3: Progress Note Will splint on right side for pain and fall. Recommend she see pcp about this and about possible rehab. Discuss with pcp about the warfarin and risk of recurrent falls. Consider different medicine or at least understand the risk wi th the pain medicine, warfarin and falls. Cancel UA as patient did not want to wait for providing a specimen. Will do that in clinic. (WIN LANDRY MD) Progress Note : Progress Note Dr. Landry asked me to follow-up with the x-ray result of right wrist. X-ray did not show acute finding. Patient already was discharged with wrist splint. (RONNY CLEMNETE MD) Diagnostic Imaging Diagonstic Imaging: Xray Plain Films/CT/US/NM/MRI: other (Bilateral wrist) Reviewed: Reviewed by Me Diagonstic Imaging: CT Plain Films/CT/US/NM/MRI: pelvis Comments NAME: KRYS ARSHAD [facility] REC#: [id number] PT STATUS: REG ER : 1935 PHYSICIAN: WIN LANDRY MD ADMIT DATE: 04/24/23/ER FS Draft Date of Exam:04/24/23 CT PELVIS WO EXAMINATION: CT pelvis without intravenous contrast. TECHNIQUE: Multiple contiguous axial images were obtained through the pelvis without the administration of intravenous contrast. All CT scans use one or more of the following dose optimizing techniques: automated exposure control, MA and/or KvP adjustment based on patient size and exam type or iterative reconstruction. HISTORY: Pelvic pain after fall COMPARISON: None available. FINDINGS: There is no bowel obstruction. There is scattered colonic diverticulosis present. There is prominent edema or stranding surrounding the diverticulum within the descending colon left lower quadrant. No loculated fluid collection or free air. There are vascular calcifications of the aorta without aneurysm. The urinary bladder and uterus are unremarkable. There is a small fat-containing right inguinal hernia. There is diffuse osseous demineralization. No acute fracture is seen within the pelvis. There is heterogeneous enlargement of the left iliacus muscle. IMPRESSION: 1. No acute osseous abnormality of the pelvis. 2. Enlargement of the left iliacus muscle with heterogeneous appearance suggests an intramuscular hematoma. 3. Mild fat stranding or edema within the left lower quadrant and left adnexa adjacent to a prominent descending colon diverticula. This may be secondary to injury from adjacent intramuscular hematoma but diverticulitis could have a similar appearance in the appropriate clinical setting. Dictated on workstation # [id number] Dict: 04/24/2328 Trans: 04/24/23 0638 [facility] [id number] Interpreted by: SANDY HAYWOOD DO Electronically signed by: Reviewed: Reviewed by Me Diagonstic Imaging: CT Plain Films/CT/US/NM/MRI: other (Lumbar spine) Comments NAME: KRYS ARSHAD [facility] REC#: [id number] PT STATUS: REG ER : 1935 PHYSICIAN: WIN LANDRY MD ADMIT DATE: 04/24/23/ER FS Draft Date of Exam:04/24/23 CT LUMBAR SPINE WO EXAMINATION: CT lumbar spine without contrast. TECHNIQUE: Multiple contiguous axial images were obtained through the lumbar spine without the use of intravenous contrast. Sagittal and coronal reformations were then performed. All CT scans use one or more of the following dose optimizing techniques: automated exposure control, MA and/or KvP adjustment based on patient size and exam type or iterative reconstruction. HISTORY: Back pain after fall COMPARISON: None available. FINDINGS: There is mild levocurvature of the lumbar spine centered at L2. There is a mild compression deformity versus prominent Schmorl's node superior endplate of L3. There is no acute fracture seen. There is multilevel facet hypertrophy. Multilevel disc height loss. Degenerative changes of the lumbar spine with multilevel lumbar spondylosis. There is mild inflammatory stranding and edema surrounding a prominent diverticula seen within the left lower quadrant. No visualized loculated fluid collection. Atherosclerosis of the aorta without aneurysm. There is enlargement of the left iliacus muscle with heterogeneous appearance suggestive of intramuscular hematoma. IMPRESSION: 1. Likely intramuscular hematoma of the left iliacus muscle. 2. Age-indeterminate compression deformity or prominent Schmorl's node within the superior endplate of L3. 3. Edema or fat stranding surrounding a prominent diverticula within the left lower quadrant which could be seen with diverticulitis in the appropriate clinical setting. Dictated on workstation # [id number] Dict: 04/24/23622 Trans: 04/24/2330 [facility] [id number] Interpreted by: SANDY HAYWOOD DO Electronically signed by: Reviewed: Reviewed by Me (WIN LANDRY MD) Diagonstic Imaging: Xray Plain Films/CT/US/NM/MRI: other (Right wrist) Comments [email or web address] [place], [place] NAME: KRYS ARSHAD [facility] REC#: [id number] PT STATUS: DEP ER : 1935 PHYSICIAN: WIN LANDRY MD ADMIT DATE: 04/24/23/ER FS Draft Date of Exam:04/24/23 WRIST 3 VIEW BILATERAL INDICATION: Pain, fall COMPARISON: None available. TECHNIQUE: 6 radiographs of bilateral wrists dated 04/24/2023. FINDINGS: Right: No acute fracture or dislocation. No destructive osseous process. Advanced degenerative changes are identified with the right wrist, including involving the STT joint and 1st CMC joint. Significant degenerative changes also noted involving the 4th and 5th CMC joints. Chondrocalcinosis of the triangular fibrocartilage. Mild background vascular calcifications. Left: Chronic fracture deformity of the distal radius. Chronic distal ulnar fracture is also noted. Ulna positive configuration of the wrist. Chondrocalcinosis of the triangular fibrocartilage. No acute osseous fracture. No dislocation. Scattered degenerative changes which are moderate in severity, including involving the radiocarpal joint and 1st CMC joint. Moderate background vascular calcifications. IMPRESSION: No acute osseous abnormality with advanced degenerative changes present. Chronic fracture deformities about the left wrist with resultant ulna positive configuration of the wrist. 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 Dictated on workstation # [id number] Dict: 04/24/23821 Trans: 04/24/2341 [facility] [id number] Interpreted by: KENNETH JONES MD Electronically signed by: (RONNY CLEMENTE MD) Departure Impression Primary Impression: Strain of left quadriceps muscle, fascia and tendon, initial encounter Additional Impressions: Pain, joint, hip, left Recurrent falls Acute pain of both wrists Spine pain, lumbosacral Hematoma of left iliopsoas muscle Qualified Codes: S70.12XA - Contusion of left thigh, initial encounter Closed compression fracture of L3 vertebra Qualified Codes: S32.030A - Wedge compression fracture of third lumbar vertebra, initial encounter for closed fracture Disposition: HOME, SELF-CARE Condition: Stable Departure-Patient Inst. Decision time for Depature: 07:07 (WIN LANDRY MD) Referrals: ARVIND WEINSTEIN MD (PCP/Family) Primary Care Physician Patient Instructions: Leg Muscle Strain ED, Hip Pain ED, Vertebral Compression Fracture ED, Opioids for Short-Term Treatment of Pain ED, Minor Contusion ED, Low Back Pain ED Add. Discharge Instructions: For the severe pain you could try taking tramadol along with the acetaminophen. Check back with your doctor about taking the warfarin. They may consider stopping that or using something different depending on your medical history and risk factors. Check with the clinic about physical therapy and strengthening to help from the standpoint of frequent falls as well as having the hematoma to the muscles on the left hip flexors. All discharge instructions reviewed with patient and/or family. Voiced understanding. Scripts Tramadol HCl (Tramadol HCl) 50 Mg Tablet 50 MG PO Q8H PRN for PAIN for 5 Days, #15 TAB 0 Refills Prov: WIN LANDRY MD 04/24/23 WIN LANDRY MD Apr 24, 2023 06:18 RONNY CLEMENTE MD Apr 24, 2023 09:43
--- NOTE | 2023-04-24 06:30 | Diagnostic Imaging Report ---
EXAMINATION: CT lumbar spine without contrast. TECHNIQUE: Multiple contiguous axial images were obtained through the lumbar spine without the use of intravenous contrast. Sagittal and coronal reformations were then performed. All CT scans use one or more of the following dose optimizing techniques: automated exposure control, MA and/or KvP adjustment based on patient size and exam type or iterative reconstruction. HISTORY: Back pain after fall COMPARISON: None available. FINDINGS: There is mild levocurvature of the lumbar spine centered at L2. There is a mild compression deformity versus prominent Schmorl's node superior endplate of L3. There is no acute fracture seen. There is multilevel facet hypertrophy. Multilevel disc height loss. Degenerative changes of the lumbar spine with multilevel lumbar spondylosis. There is mild inflammatory stranding and edema surrounding a prominent diverticula seen within the left lower quadrant. No visualized loculated fluid collection. Atherosclerosis of the aorta without aneurysm. There is enlargement of the left iliacus muscle with heterogeneous appearance suggestive of intramuscular hematoma. IMPRESSION: 1. Likely intramuscular hematoma of the left iliacus muscle. 2. Age-indeterminate compression deformity or prominent Schmorl's node within the superior endplate of L3. 3. Edema or fat stranding surrounding a prominent diverticula within the left lower quadrant which could be seen with diverticulitis in the appropriate clinical setting. Dictated by: Dictated on workstation # [id number]
--- NOTE | 2023-04-24 06:39 | Diagnostic Imaging Report ---
EXAMINATION: CT pelvis without intravenous contrast. TECHNIQUE: Multiple contiguous axial images were obtained through the pelvis without the administration of intravenous contrast. All CT scans use one or more of the following dose optimizing techniques: automated exposure control, MA and/or KvP adjustment based on patient size and exam type or iterative reconstruction. HISTORY: Pelvic pain after fall COMPARISON: None available. FINDINGS: There is no bowel obstruction. There is scattered colonic diverticulosis present. There is prominent edema or stranding surrounding the diverticulum within the descending colon left lower quadrant. No loculated fluid collection or free air. There are vascular calcifications of the aorta without aneurysm. The urinary bladder and uterus are unremarkable. There is a small fat-containing right inguinal hernia. There is diffuse osseous demineralization. No acute fracture is seen within the pelvis. There is heterogeneous enlargement of the left iliacus muscle. IMPRESSION: 1. No acute osseous abnormality of the pelvis. 2. Enlargement of the left iliacus muscle with heterogeneous appearance suggests an intramuscular hematoma. 3. Mild fat stranding or edema within the left lower quadrant and left adnexa adjacent to a prominent descending colon diverticula. This may be secondary to injury from adjacent intramuscular hematoma but diverticulitis could have a similar appearance in the appropriate clinical setting. Dictated by: Dictated on workstation # [id number]
[2023-04-24] MEDS ORDERED: TRM50T PO (07:08)
[2023-04-24 07:28] VITALS: BP 131/72
--- NOTE | 2023-04-24 08:42 | Diagnostic Imaging Report ---
INDICATION: Pain, fall COMPARISON: None available. TECHNIQUE: 6 radiographs of bilateral wrists dated 04/24/2023. FINDINGS: Right: No acute fracture or dislocation. No destructive osseous process. Advanced degenerative changes are identified with the right wrist, including involving the STT joint and 1st CMC joint. Significant degenerative changes also noted involving the 4th and 5th CMC joints. Chondrocalcinosis of the triangular fibrocartilage. Mild background vascular calcifications. Left: Chronic fracture deformity of the distal radius. Chronic distal ulnar fracture is also noted. Ulna positive configuration of the wrist. Chondrocalcinosis of the triangular fibrocartilage. No acute osseous fracture. No dislocation. Scattered degenerative changes which are moderate in severity, including involving the radiocarpal joint and 1st CMC joint. Moderate background vascular calcifications. IMPRESSION: No acute osseous abnormality with advanced degenerative changes present. Chronic fracture deformities about the left wrist with resultant ulna positive configuration of the wrist. 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 Dictated by: Dictated on workstation # [id number]
== END 2023-04-24 07:28 | disposition home or self-care (01) ==
LOC: EDUNIT# 05:42 → ER FS 05:44
DX: S32.038A Other fracture of third lumbar vertebra, initial encounter for closed fracture (principal); S76.112A Strain of left quadriceps muscle, fascia and tendon, initial encounter; M25.552 Pain in left hip; M25.532 Pain in left wrist; M25.531 Pain in right wrist; I48.0 Paroxysmal atrial fibrillation; Z79.01 Long term (current) use of anticoagulants; Z28.310 Unvaccinated for COVID-19; W18.30XA Fall on same level, unspecified, initial encounter
CPT/HCPCS: 72131; 72192

== ENCOUNTER 2023-04-28 13:08 | Inpatient (IN) | payer MEDICARE, OTHER ==
[~2023-04-28] VITALS: Ht 162.6 cm; Wt 70.7 kg
[~2023-04-28 13:08] MED LIST changes: +TRM50T PO
[2023-04-28 13:46] LABS: BASOPHILS % (AUTO) 0 % (0-10); EOSINOPHILS # (AUTO) 0.1 10^3/uL (0.0-0.3); EOSINOPHILS % (AUTO) 1 % (0-10); HEMATOCRIT 29 % (35-52); HEMOGLOBIN 9.5 g/dL (11.5-16.0); LYMPHOCYTES % (AUTO) 11 % (12-44); MEAN CORPUSCULAR HEMOGLOBIN 32 pg (25-34); MEAN CORPUSCULAR HGB CONC 33 g/dL (32-36); MEAN CORPUSCULAR VOLUME 95 fL (80-99); MEAN PLATELET VOLUME 10.7 fL (9.0-12.2); MONOCYTES # (AUTO) 0.8 10^3/uL (0.0-1.0); MONOCYTES % (AUTO) 9 % (0-12); NEUTROPHILS % (AUTO) 78 % (42-75); PLATELET COUNT 242 10^3/uL (130-400); WHITE BLOOD COUNT 8.9 10^3/uL (4.3-11.0)
[2023-04-28 13:51] LABS: BILIRUBIN,URINE NEGATIVE (NEGATIVE); COLOR,URINE YELLOW; GLUCOSE, URINE (UA) NEGATIVE (NEGATIVE); KETONES,URINE NEGATIVE (NEGATIVE); LEUKOCYTE ESTERASE ,URINE 2+ (NEGATIVE); NITRITE,URINE NEGATIVE (NEGATIVE); PROTEIN,URINE TRACE (NEGATIVE)
[2023-04-28 13:57] LABS: CLARITY,URINE CLOUDY; RBC,URINE TNTC /HPF
[2023-04-28 14:01] LABS: INR 3.5 (0.8-1.4); PROTHROMBIN TIME PATIENT 35.1 SEC (12.2-14.7)
--- NOTE | 2023-04-28 14:03 | ED General ---
General Chief Complaint: General Problems/Pain Stated Complaint: FALL; HIP PAIN Nursing Triage Note: Patient reports she fell 3 weeks ago and hit her head, states she had a head CT that was normal. She states she fell again two weeks ago and had bilateral hip pain from that fall, patient had an x-ray and pelvic CT scan that was normal at that time. Patient and family state that patient could not ambulate to the bathroom today due to her bilateral hip pain. Family states they are using a walker and gait belt at home; they state they are trying to get Home Health/physical therapy for patient, but patient has not been evaluated yet. Family states patient had 100 mg tramadol and 650 mg tylenol at 1200 without any relief from her pain. Source of Information: Patient, EMS Notes Reviewed, Old Records, RN Notes Reviewed History of Present Illness Date Seen by Provider: Apr 28, 2023 Time Seen by Provider: 13:16 Initial Comments 88-year-old female patient with history of atrial fibrillation on Coumadin, hypertension, dyslipidemia, CHF on hydrochlorothiazide brought in by EMS because of left hip pain. Patient had a fall 3 weeks ago and hit her head and had unremarkable evaluation in the emergency room. Patient also had another fall on April 16 and was seen in this emergency room. Patient also was seen in this emergency room on April 24 because of continuing to have pain on her hip and had CT lumbar spine and pelvis that showed hematoma of muscle without acute fr acture. Patient currently taking Tramadol 100 mg every 8 hours and Tylenol 650 for pain but stated her pain is not getting better and today was not able to walk with her walker to the bathroom and family decided to call EMS to get admission for pain management. Patient denies fever and chills, urinary symptoms, chest pain and shortness of breath. Patient complaining of nausea du ring ambulation because of the pain. Patient had Zofran and fentanyl by EMS prior to arrival to ER. Allergies and Home Medications Allergies Coded Allergies: amoxicillin (Verified Allergy, Unknown, 04/28/23) penicillin G (Verified Allergy, Unknown, 05/30/19) Patient Home Medication List Home Medication List Reviewed: Yes Amlodipine Besylate (Amlodipine Besylate) 10 Mg Tablet, 10 MG PO DAILY, (Reported) Entered as Reported by: TEDDY LY on 11/05/22 2862 Benzonatate (Tessalon Perles) 100 Mg Capsule, 100 MG PO TID Prescribed by: JASWINDER FLORES on 12/16/22 0440 Calcium Carbonate (Calcium) 600 Mg Calcium (1500 Mg) Tablet, 600 MG PO DAILY, (Reported) Entered as Reported by: RACHELLE SEAMAN on 11/07/22 0907 Cephalexin (Cephalexin) 500 Mg Capsule, 500 MG PO BID Prescribed by: PAUL SKY on 11/07/22 1433 Cephalexin (Cephalexin) 500 Mg Capsule, 500 MG PO TID Prescribed by: WIN LANDRY on 04/09/232014 Citalopram Hydrobromide (Citalopram HBr) 20 Mg Tablet, 20 MG PO HS, (Reported) Entered as Reported by: TEDDY LY on 11/05/22 1347 Hydrochlorothiazide (Hydrochlorothiazide) 25 Mg Tablet, 25 MG PO DAILY, (Reported) Entered as Reported by: TEDDY LY on 11/05/22 1346 Ibuprofen (Ibu) 600 Mg Tablet, 600 MG PO DAILY PRN for PAIN-MILD (1-4), (Reported) Entered as Reported by: RACHELLE SEAMAN on 11/07/22 09 Lovastatin (Lovastatin) 20 Mg Tablet, 20 MG PO HS, (Reported) Entered as Reported by: TEDDY LY on 11/05/22 1347 Metoprolol Succinate (Metoprolol Succinate) 200 Mg Tab.er.24h, 200 MG PO HS, (Reported) Entered as Reported by: TEDDY LY on 11/05/22 1345 Multivitamin (Multivitamin) 1 Each Tablet, 1 EACH PO DAILY, (Reported) Entered as Reported by: RACHELLE SEAMAN on 11/07/22 0908 Mv-Mn/Om3/Dha/Epa/Fish/Lut/Justine (Ocuvite Adult 50 Plus Softgel) 250 Mg (90 Mg-160 Mg)-5 Mg-1 Mg Capsule, 1 EACH PO DAILY, (Reported) Entered as Reported by: RACHELLE SEAMAN on 11/07/22 0909 Omeprazole (Omeprazole) 20 Mg Capsule.dr, 20 MG PO HS, (Reported) Entered as Reported by: RACHELLE SEAMAN on 11/07/22 09 Oxybutynin Chloride (Oxybutynin Chloride) 5 Mg Tablet, 5 MG PO BID, (Reported) Entered as Reported by: TEDDY LY on 11/05/22 1355 Potassium Chloride (Potassium Chloride) 10 Meq Tab.er.prt, 10 MEQ PO BID, (Reported) Entered as Reported by: TEDDY LY on 11/05/22 1355 Tramadol HCl (Tramadol HCl) 50 Mg Tablet, 50 MG PO Q8H PRN for PAIN Prescribed by: WIN LANDRY on 04/24/23 0709 Warfarin Sodium (Warfarin Sodium) 2 Mg Tablet, 2 MG PO DAILY, (Reported) Entered as Reported by: TEDDY LY on 11/05/22 1345 Review of Systems Review of Systems Constitutional: see HPI EENTM: no symptoms reported Respiratory: see HPI Cardiovascular: see HPI Gastrointestinal: see HPI Genitourinary: no symptoms reported Musculoskeletal: see HPI Skin: no symptoms reported Psychiatric/Neurological: No Symptoms Reported Hematologic/Lymphatic: No Symptoms Reported Immunological/Allergic: no symptoms reported All Other Systems Reviewed Negative Unless Noted: Yes Past Qicpyuo-Grzves-Zwzudw Hx Patient Social History Tobacco Use?: No Substance use?: No Alcohol Use?: No Pt feels they are or have been: No Seasonal Allergies Seasonal Allergies: No Past Medical History Surgery/Hospitalization HX: A-Fib GB Surgeries: Yes Gallbladder Respiratory: No Cardiac: Yes Atrial Fibrillation, High Cholesterol, Hypertension Neurological: No Genitourinary: No Gastrointestinal: No Musculoskeletal: No Endocrine: No HEENT: No Cancer: No Psychosocial: No Integumentary: No Blood Disorders: No Physical Exam Vital Signs Vital Signs - First Documented 04/28/23 13:15 Temp 35.4 Pulse 94 Resp 16 B/P (MAP) 129/81 (97) Pulse Ox 95 O2 Delivery Room Air Capillary Refill : Less Than 3 Seconds Height, Weight, BMI Height: '" Weight: lbs. oz. kg; 28.00 BMI Method: General Appearance: WD/WN, Mild Distress Eyes: Bilateral Eye Normal Inspection, Bilateral Eye PERRL, Bilateral Eye EOMI HEENT: PERRL/EOMI Neck: Full Range of Motion, Normal Inspection, Non Tender Respiratory: Chest Non Tender, Lungs Clear, Normal Breath Sounds Cardiovascular: No Murmur, Normal Peripheral Pulses, Irregularly Irregular Back: Normal Inspection, No CVA Tenderness Extremity: Normal Capillary Refill, Pedal Edema (1+ bilateral lower extremity edema), Other (Painful range of motion of left lower extremity) Neurologic/Psychiatric: Alert, Oriented x3, No Motor/Sensory Deficits, Normal Mood/Affect Skin: Pallor Lymphatic: No Adenopathy Progress/Results/Core Measures Suspected Sepsis SIRS Temperature: Pulse: 94 Respiratory Rate: 16 Laboratory Tests 04/28/23 13:43: White Blood Count 8.9 Blood Pressure 129 /81 Mean: 97 Laboratory Tests 04/28/23 13:43: Creatinine 0.65, INR Comment 3.5H, Platelet Count 242, Total Bilirubin 1.1H Results/Orders Lab Results Laboratory Tests Test 04/28/23 13:43 04/28/23 13:45 Range/Units White Blood Count 8.9 4.3-11.0 10^3/uL Red Blood Count 2.99 L 3.80-5.11 10^6/uL Hemoglobin 9.5 L 11.5-16.0 g/dL Hematocrit 29 L 35-52 % Mean Corpuscular Volume 95 80-99 fL Mean Corpuscular Hemoglobin 32 25-34 pg Mean Corpuscular Hemoglobin Concent 33 32-36 g/dL Red Cell Distribution Width 14.1 10.0-14.5 % Platelet Count 242 130-400 10^3/uL Mean Platelet Volume 10.7 9.0-12.2 fL Immature Granulocyte % (Auto) 0 % Neutrophils (%) (Auto) 78 H 42-75 % Lymphocytes (%) (Auto) 11 L 12-44 % Monocytes (%) (Auto) 9 0-12 % Eosinophils (%) (Auto) 1 0-10 % Basophils (%) (Auto) 0 0-10 % Neutrophils # (Auto) 7.0 1.8-7.8 10^3/uL Lymphocytes # (Auto) 1.0 1.0-4.0 10^3/uL Monocytes # (Auto) 0.8 0.0-1.0 10^3/uL Eosinophils # (Auto) 0.1 0.0-0.3 10^3/uL Basophils # (Auto) 0.0 0.0-0.1 10^3/uL Immature Granulocyte # (Auto) 0.0 0.0-0.1 10^3/uL Percent Immature Platelet Fraction 6.9 0.0-7.6 % Prothrombin Time 35.1 H 12.2-14.7 SEC INR Comment 3.5 H 0.8-1.4 Activated Partial Thromboplast Time 62 H 24-35 SEC Sodium Level 123 *L 135-145 MMOL/L Potassium Level 3.2 L 3.6-5.0 MMOL/L Chloride Level 88 L 98-107 MMOL/L Carbon Dioxide Level 24 21-32 MMOL/L Anion Gap 11 5-14 MMOL/L Blood Urea Nitrogen 22 H 7-18 MG/DL Creatinine 0.65 0.60-1.30 MG/DL Estimat Glomerular Filtration Rate 85 BUN/Creatinine Ratio 34 Glucose Level 111 H 70-105 MG/DL Calcium Level 9.2 8.5-10.1 MG/DL Corrected Calcium 9.6 8.5-10.1 MG/DL Total Bilirubin 1.1 H 0.1-1.0 MG/DL Aspartate Amino Transf (AST/SGOT) 21 5-34 U/L Alanine Aminotransferase (ALT/SGPT) 12 0-55 U/L Alkaline Phosphatase 92 40-136 U/L Total Protein 6.3 L 6.4-8.2 GM/DL Albumin 3.5 3.2-4.5 GM/DL Urine Color YELLOW Urine Clarity CLOUDY Urine pH 6.0 5-9 Urine Specific [place] 1.025 H 1.016-1.022 Urine Protein TRACE H NEGATIVE Urine Glucose (UA) NEGATIVE NEGATIVE Urine Ketones NEGATIVE NEGATIVE Urine Nitrite NEGATIVE NEGATIVE Urine Bilirubin NEGATIVE NEGATIVE Urine Urobilinogen 1.0 < = 1.0 MG/DL Urine Leukocyte Esterase 2+ H NEGATIVE Urine RBC (Auto) 3+ H NEGATIVE Urine RBC TNTC H /HPF Urine WBC /HPF Urine Crystals NONE /LPF Urine Bacteria /HPF Urine Casts NONE /LPF Urine Mucus NEGATIVE /LPF Urine Culture Indicated YES My Orders Orders - RONNY CLEMENTE MD Comprehensive Metabolic Panel (04/28/23 13:36) Ua Culture If Indicated (04/28/23 13:36) Cbc With Automated Diff (04/28/23 13:36) Protime With Inr (04/28/23 13:36) Partial Thromboplastin Time (04/28/23 13:36) Urine Culture (04/28/23 13:45) Ns Iv 500 Ml (Sodium Chloride 0.9%) (04/28/23 14:30) Potassium Chloride (Tablet) (Potassium C (04/28/23 14:30) Ed Admission (Communication) (04/28/23 14:31) Medications Given in ED Current Medications Medications Dose Ordered Sig/Maranda Route Start Time Stop Time Status Last Admin Dose Admin Potassium Chloride 20 meq ONCE ONCE PO 04/28/23 14:30 04/28/23 14:31 DC 04/28/23 14:33 20 MEQ Sodium Chloride 500 ml @ 200 mls/hr Q2H30M ONCE IV 04/28/23 14:30 04/28/23 16:59 04/28/23 14:33 200 MLS/HR Vital Signs/I&O 04/28/23 04/28/23 13:15 15:13 Temp 35.4 Pulse 94 72 Resp 16 18 B/P (MAP) 129/81 (97) 115/78 Pulse Ox 95 93 O2 Delivery Room Air Room Air Capillary Refill : Less Than 3 Seconds Blood Pressure Mean: 97 Progress Note : Progress Note 88-year-old female patient with history of frequent falls and Coumadin and impaired ambulation. Patient had atrial fibrillation without RVR, patient had painful range of motion of left hip. Patient had mild pallor and 1+ edema of bilateral lower extremity. CBC, CMP, UA, PT/INR and PTT was ordered and reviewed by me and showed hemoglobin of 9.5 with more than 2 g drop from the previous labs. Patient had sodium of 123 with previous normal sodium. Potassium was 3.2. Patient had chronic elevation of BUN. UA showed hematuria without acute infection. Because of hyponatremia and impaired ambulation decided to admit patient. On-call hospitalist for [facility] Dr. Conner was consulted at 1418 and recommended to admit patient to telemetry bed and give normal saline +20 potassium at 200mm/h for 1 L and then at 150/h for another liter and repeat CBC and BMP in the morning. Patient and her daughter and son was informed about test results and plan of care and need for admission and all questions was addressed. Departure Communication (Admissions) Time/Spoke to Admitting Phy: 14:18 Dr. Conner on-call hospitalist for [facility] was consulted and recommended to start normal saline +20 meq KCL@200 mL/h x 1 lit and then at 150 ML/hour for 1 lit and check CBC and BMP in the morning. He asked to write admit orders plus inpatient order as he recommended. Impression Primary Impression: Impaired ambulation Additional Impressions: Hyponatremia Hypokalemia Anemia Hematuria Pelvic hematoma Anticoagulated on Coumadin Elevated INR Disposition: 30 STILL A PATIENT Condition: Improved Admissions Decision to Admit Reason: Admit from ER (General) Decision to Admit/Date: Apr 28, 2023 Time/Decision to Admit Time: 14:20 Departure-Patient Inst. Referrals: ARVIND WEINSTEIN MD (PCP) Primary Care Physician RONNY CLEMENTE MD Apr 28, 2023 14:03
[2023-04-28 14:07] LABS: ALBUMIN 3.5 GM/DL (3.2-4.5); BILIRUBIN,TOTAL 1.1 MG/DL (0.1-1.0); CALCIUM 9.2 MG/DL (8.5-10.1); CREATININE SERUM 0.65 MG/DL (0.60-1.30); POTASSIUM 3.2 MMOL/L (3.6-5.0); TOTAL PROTEIN 6.3 GM/DL (6.4-8.2)
[2023-04-28] MEDS ORDERED: NS IV 500 ML 500 ML IV ONE (14:30)
[2023-04-28] MEDS ORDERED: POTASSIUM CHLORIDE 20 MEQ TABLET PO ONE (14:30)
[2023-04-28] MEDS ORDERED: NS + KCL 20 MEQ/L 1000 ML 1,000 ML IV SCH ×2 (16:30→21:30)
[2023-04-28 16:44] VITALS: BP 118/72
[2023-04-28] MEDS ORDERED: ACETAMINOPHEN 500 MG TABLET PO NR (20:00)
[2023-04-28 20:43] VITALS: BP 107/59
[2023-04-28 23:52] VITALS: BP 93/54
[2023-04-29 04:30] VITALS: BP 128/57
[2023-04-29 05:10] LABS: BASOPHILS % (AUTO) 0 % (0-10); EOSINOPHILS # (AUTO) 0.1 10^3/uL (0.0-0.3); EOSINOPHILS % (AUTO) 2 % (0-10); HEMATOCRIT 27 % (35-52); HEMOGLOBIN 8.7 g/dL (11.5-16.0); LYMPHOCYTES % (AUTO) 14 % (12-44); MEAN CORPUSCULAR HEMOGLOBIN 33 pg (25-34); MEAN CORPUSCULAR HGB CONC 33 g/dL (32-36); MEAN CORPUSCULAR VOLUME 99 fL (80-99); MEAN PLATELET VOLUME 11.1 fL (9.0-12.2); MONOCYTES # (AUTO) 0.8 10^3/uL (0.0-1.0); MONOCYTES % (AUTO) 12 % (0-12); NEUTROPHILS # (AUTO) 4.8 10^3/uL (1.8-7.8); NEUTROPHILS % (AUTO) 71 % (42-75); PLATELET COUNT 241 10^3/uL (130-400); WHITE BLOOD COUNT 6.7 10^3/uL (4.3-11.0)
[2023-04-29 05:35] LABS: CALCIUM 8.7 MG/DL (8.5-10.1); CREATININE SERUM 0.66 MG/DL (0.60-1.30); POTASSIUM 3.7 MMOL/L (3.6-5.0)
[2023-04-29 07:40] VITALS: BP 138/62
[2023-04-29 12:01] VITALS: BP 133/60
--- NOTE | 2023-04-29 12:29 | History & Physical-Hospitalist ---
History of Present Illness HPI/Chief Complaint 88-year-old female patient with history of atrial fibrillation on Coumadin, hypertension, dyslipidemia, CHF on hydrochlorothiazide brought in by EMS because of left hip pain. Patient had a fall 3 weeks ago and hit her head and had unremarkable evaluation in the emergency room. Patient also had another fall on April 16 and was seen in this emergency room. Patient also was seen in this emergency room on April 24 because of continuing to have pain on her hip and had CT lumbar spine and pelvis that showed hematoma of muscle without acute fracture. Patient currently taking Tramadol 100 mg every 8 hours and Tylenol 650 for pain but stated her pain is not getting better and today was not able to walk with her walker to the bathroom and family decided to call EMS to get admission for pain management. Patient denies fever and chills, urinary symptoms, chest pain and shortness of breath. Patient complaining of nausea during ambulation because of the pain. Patient had Zofran and fentanyl by EMS prior to arrival to ER. Upon my arrival patient was feeling better with less hip pain. Family members are present at the bedside. As she had 3 falls in the last 3 weeks just reporting increased generalized weakness. She reports occasional mild cough nonproductive nothing out of the ordinary. Appetite is generally been poor she is not aware if she has been losing weight. Date Seen 04/29/23 Time Seen by a Provider: 07:00 Attending Physician Pradeep Durbin MD PCP Admitting Physician: Tucker Doe MD Attending Physician: Tucker Doe MD Referring Physician Date of Admission Apr 28, 2023 at 15:55 Home Medications & Allergies Home Medications Reviewed patient Home Medication Reconciliation performed by pharmacy medication reconciliations shift lab technician and/or nursing. Patients Allergies have been reviewed. Allergies Allergies Coded Allergies amoxicillin (Verified Allergy, Unknown, 04/28/23) penicillin G (Verified Allergy, Unknown, 05/30/19) Past Etmtwdx-Vbjwju-Gmarhe Hx Patient Social History Tobacco Use?: No Use of E-Cig and/or Vaping dev: No Substance use?: No Alcohol Use?: No Pt feels they are or have been: No Immunizations Up To Date Date of Influenza Vaccine: Aug 11, 2022 Seasonal Allergies Seasonal Allergies: No Current Status status: No status: No Advance Directives: Yes Advance Directive Location: Unable to obtain copy Communicates: Verbally Primary Language: Tunisian Preferred Spoken Language: Tunisian Is interpretation needed?: No Implanted or Applied Medical D: None Past Medical History Surgeries: Gallbladder Atrial Fibrillation, High Cholesterol, Hypertension Blood Disorders: No Review of Systems Constitutional: see HPI Physical Exam Physical Exam Vital Signs Vital Signs - First Documented 04/28/23 04/28/23 13:15 16:44 Temp 35.4 Pulse 94 Resp 16 B/P (MAP) 129/81 (97) Pulse Ox 95 O2 Delivery Room Air O2 Flow Rate 2.00 Capillary Refill : Less Than 3 Seconds Height, Weight, BMI Height: '" Weight: lbs. oz. kg; 27.83 BMI Method: General Appearance: No Apparent Distress HEENT: Other (Posterior scalp hematoma with ecchymosis extending down into the neck area nontender normal range of motion of the neck.) Respiratory: Chest Non Tender, Lungs Clear, Normal Breath Sounds, No Accessory Muscle Use, No Respiratory Distress Cardiovascular: No Gallop, No JVD, No Murmur, Irregularly Irregular ( Heart rate in the 60s), Other ( trace left-sided edema no edema on the right Homans negative no tenderness to palpation of the calf or the thigh.) Gastrointestinal: Normal Bowel Sounds, No Organomegaly, No Pulsatile Mass, Non Tender, Soft Results Results/Procedures Labs Laboratory Tests 04/28/23 13:43 04/29/23 04:46 Patient resulted labs reviewed. Assessment/Plan Admission Diagnosis 1. Severe hyponatremia suspect may be related to poor p.o. intake and thiazide diuretic therapy especially in light of the fact that there is been a significant improvement. I am concerned with the multiple blood pressure medications that she takes and the fact that it is now been about 36 hours since her last dose of high-dose metoprolol and her heart rate is only in the 60s that hypotension or symptomatic bradycardia may have been contributing to weakness as well and suspect possible underlying sick sinus syndrome. We will be holding thiazide diuretic therapy as well as metoprolol resuming the latter if she is developing significant tachycardia. 2. Persistent atrial fibrillation with multiple falls hematoma risk of discussed that while stopping anticoagulant therapy would increase her stroke risk she has an even higher risk of intracranial hemorrhage from falls and so for now we will hold Coumadin for which the patient is agreeable. 3. Advanced age multifactorial frailty with deconditioning significant patient is amenable to penitentiary placement in [place]. 4. Possible hemorrhagic cystitis patient's temperature is mildly elevated 37.6 will initiate Rocephin. Patient has possible allergic reaction to penicillin but is not anaphylactic and she has been on cephalexin without evidence for allergic reaction in the past. Culture pending. Complex medical management. Admission Status: Inpatient Order (span 2 midnights) Reason for Inpatient Admission: See admission diagnosis TUCKER DOE MD Apr 29, 2023 12:29
[2023-04-29] MEDS: cefTRIAXone IV/IM 1,000 MG in NS (IVPB) 50 ML 50 ML IV SCH (13:25)
[2023-04-29] MEDS: ACETAMINOPHEN 500 MG TABLET PO PRN ×2 (13:25→22:25)
[2023-04-29 15:18] VITALS: BP 114/69
[2023-04-29] MEDS ORDERED: WARF4TAB3 PO (18:29)
[2023-04-29] MEDS ORDERED: ASPI-999 PO (18:29)
[2023-04-29] MEDS ORDERED: CYAN-23 PO (18:29)
[2023-04-29 19:20] VITALS: BP 117/66
[2023-04-29 23:31] VITALS: BP 110/64
[2023-04-30 03:27] VITALS: BP 128/72
[2023-04-30 07:15] VITALS: BP 148/78
[2023-04-30 11:45] VITALS: BP 126/72
--- NOTE | 2023-04-30 12:45 | Progress Note - Hospitalist ---
Subjective HPI/CC On Admission Date Seen by Provider: Apr 30, 2023 Time Seen by Provider: 11:00 88-year-old female patient with history of atrial fibrillation on Coumadin, hypertension, dyslipidemia, CHF on hydrochlorothiazide brought in by EMS because of left hip pain. Patient had a fall 3 weeks ago and hit her head and had unremarkable evaluation in the emergency room. Patient also had another fall on April 16 and was seen in this emergency room. Patient also was seen in this emergency room on April 24 because of continuing to have pain on her hip and had CT lumbar spine and pelvis that showed hematoma of muscle without acute fracture. Patient currently taking Tramadol 100 mg every 8 hours and Tylenol 650 for pain but stated her pain is not getting better and today was not able to walk with her walker to the bathroom and family decided to call EMS to get admission for pain management. Patient denies fever and chills, urinary symptoms, chest pain and shortness of breath. Patient complaining of nausea during ambulation because of the pain. Patient had Zofran and fentanyl by EMS prior to arrival to ER. Upon my arrival patient was feeling better with less hip pain. Family members are present at the bedside. As she had 3 falls in the last 3 weeks just reporting increased generalized weakness. She reports occasional mild cough nonproductive nothing out of the ordinary. Appetite is generally been poor she is not aware if she has been losing weight. Subjective/Events-last exam Patient feeling better decreased hip pain ambulating with assistance to the bathroom and back improved appetite. Still reporting generalized weakness. Objective Exam Vital Signs Vital Signs Date Time Temp Pulse Resp B/P (MAP) Pulse Ox O2 Delivery O2 Flow Rate FiO2 04/30/23 12:27 104 04/30/23 11:45 36.1 18 126/72 (90) 99 Room Air 04/30/23 03:27 2.00 Capillary Refill : Less Than 3 Seconds General Appearance: No Apparent Distress, Chronically ill Respiratory: Chest Non Tender, Lungs Clear, Normal Breath Sounds, No Accessory Muscle Use, No Respiratory Distress Cardiovascular: No Edema, No Gallop, No JVD, Irregularly Irregular (Off of beta-marc therapy patient's heart rate remains rate controlled around 80 bpm at rest) Gastrointestinal: Normal Bowel Sounds, No Organomegaly, No Pulsatile Mass, Non Tender, Soft Results/Procedures Lab Patient resulted labs reviewed. Assessment/Plan Assessment and Plan Assess & Plan/Chief Complaint 1. Severe hyponatremia Resolved patient feeling much better. Suspect may be related to poor p.o. intake and thiazide diuretic therapy especially in light of the fact that there is been a significant improvement. I am concerned with the multiple blood pressure medications that she takes and the fact that it is now been about 36 hours since her last dose of high-dose metoprolol and her heart rate is only in the 60s that hypotension or symptomatic bradycardia may have been contributing to weakness as well and suspect possible underlying sick sinus syndrome. We will be holding thiazide diuretic therapy as well as metoprolol resuming the latter if she is developing significant tachycardia. 2. Persistent atrial fibrillation with multiple falls hematoma risk of discussed that while stopping anticoagulant therapy would increase her stroke risk she has an even higher risk of intracranial hemorrhage from falls and so for now we will hold Coumadin for which the patient is agreeable.Rate control remains reasonable off of beta-marc therapy we will continue to hold metoprolol. 3. Advanced age multifactorial frailty with deconditioning significant patient is amenable to correction placement their [facility] choice [facility] we will have school social worker hopefully see about setting up transfer tomorrow. 4. Possible UTI related hemorrhagic cystitis patient's temperature is mildly elevated 37.6 will continue Rocephin. Patient has possible allergic reaction to penicillin but is not anaphylactic and she has been on cephalexin without evidence for allergic reaction in the past. Culture pending. Complex medical management. SALVADOR DOE MD Apr 30, 2023 12:45
[2023-04-30] MEDS: cefTRIAXone IV/IM 1,000 MG in NS (IVPB) 50 ML 50 ML IV SCH (13:06)
[2023-04-30 16:05] VITALS: BP 140/63
[2023-04-30] MEDS: ACETAMINOPHEN 500 MG TABLET PO PRN (19:36)
[2023-04-30 20:13] VITALS: BP 133/85
[2023-04-30 23:35] VITALS: BP 147/70
[2023-05-01 03:17] VITALS: BP 150/89
[2023-05-01] MEDS: ACETAMINOPHEN 500 MG TABLET PO PRN (03:23)
[2023-05-01] MEDS ORDERED: MELATONIN 3 MG TABLET PO PRN (07:15)
[2023-05-01] MEDS ORDERED: MILK OF MAGNESIA 400 MG/5 ML 30 ML UDC PO PRN (07:15)
[2023-05-01] MEDS ORDERED: BISACODYL 10 MG SUPPOSITORY PR PRN (07:15)
[2023-05-01] MEDS ORDERED: diphenhydrAMINE INJ 50 MG/ML VIAL IVP PRN (07:15)
[2023-05-01] MEDS ORDERED: LACTULOSE SYRUP 10GM/15ML 30ML UDC PO PRN (07:15)
[2023-05-01] MEDS ORDERED: ANTACID SUSPENSION 30 ML UDC PO PRN (07:15)
[2023-05-01] MEDS ORDERED: CALCIUM CARBONATE 500 MG CHEW TABLET PO PRN (07:15)
[2023-05-01] MEDS ORDERED: ONDANSETRON 4 MG ORAL DISSOLVE TABLET PO PRN (07:15)
[2023-05-01] MEDS ORDERED: diphenhydrAMINE 25 MG TABLET PO PRN (07:15)
[2023-05-01] MEDS ORDERED: ONDANSETRON INJECTION 4 MG/2 ML (SDV) IV PRN (07:15)
[2023-05-01] MEDS ORDERED: ACETAMINOPHEN 325 MG TABLET PO PRN (07:15)
[2023-05-01 07:43] VITALS: BP 113/78
[2023-05-01 08:02] LABS: BASOPHILS % (AUTO) 0 % (0-10); EOSINOPHILS # (AUTO) 0.2 10^3/uL (0.0-0.3); EOSINOPHILS % (AUTO) 2 % (0-10); HEMATOCRIT 31 % (35-52); HEMOGLOBIN 10.1 g/dL (11.5-16.0); LYMPHOCYTES # (AUTO) 1.4 10^3/uL (1.0-4.0); LYMPHOCYTES % (AUTO) 18 % (12-44); MEAN CORPUSCULAR HEMOGLOBIN 32 pg (25-34); MEAN CORPUSCULAR HGB CONC 33 g/dL (32-36); MEAN CORPUSCULAR VOLUME 100 fL (80-99); MEAN PLATELET VOLUME 10.4 fL (9.0-12.2); MONOCYTES # (AUTO) 0.8 10^3/uL (0.0-1.0); MONOCYTES % (AUTO) 10 % (0-12); NEUTROPHILS # (AUTO) 5.6 10^3/uL (1.8-7.8); NEUTROPHILS % (AUTO) 70 % (42-75); PLATELET COUNT 291 10^3/uL (130-400)
[2023-05-01 08:19] LABS: ALBUMIN 3.6 GM/DL (3.2-4.5); BILIRUBIN,TOTAL 1.4 MG/DL (0.1-1.0); CALCIUM 9.3 MG/DL (8.5-10.1); CREATININE SERUM 0.66 MG/DL (0.60-1.30); TOTAL PROTEIN 6.5 GM/DL (6.4-8.2)
[2023-05-01] MEDS ORDERED: ENOXAPARIN 40 MG/0.4 ML SYRINGE SC SCH (09:00)
[2023-05-01] MEDS: SENNOSIDES 8.6 MG (SENOKOT) TAB PO SCH ×2 (09:19→21:15)
[2023-05-01] MEDS: DOCUSATE SODIUM 100 MG CAPSULE PO SCH ×2 (09:20→21:15)
--- NOTE | 2023-05-01 09:20 | Physical Therapy Evaluation ---
PT Evaluation-General Medical Diagnosis Admission Date Apr 28, 2023 at 15:55 Medical Diagnosis: hyponatremia Onset Date: Apr 28, 2023 Therapy Diagnosis Therapy Diagnosis: debility/weakness Precautions Precautions/Isolations: Standard Precautions Referral Physician: Parvin Reason for Referral: Evaluation/Treatment Medical History Pertinent Medical History: Atrial Fib, Heart Failure, HTN Current History EMS secondary to multiple falls with bilateral hip pain Reviewed History: Yes Social History Home: Single Level Current Living Status: Alone Entry Into Home: Stairs Without Railing PT Steps Into Home: 2 Prior Prior Level of Function SCALE: Activities may be completed with or without assistive devices. 5-Ffsoslwejt-cyfkpvq completes the activity by him/herself with no assistance from a helper. 5-Set-up or Clean-up Assistance-helper sets up or cleans up; patient completes activity. [place] assists only prior to or following the activity. 4-Supervision or Touching Assistance-helper provides verbal cues and/or touching/steadying and/or contact guard assistance as patient completes activ ity. Assistance may be provided throughout the activity or intermittently. 3-Partial/Moderate Assistance-helper does LESS THAN HALF the effort. [place] lifts, holds or supports trunk or limbs, but provides less than half the effort. 2-Substantial/Maximal Assistance-helper does MORE THAN HALF the effort. [place] lifts or holds trunk or limbs and provides more than half the effort. 3-Uyzipjkia-jgffal does ALL the effort. Patient does none of the effort to complete the activity. Or, the assistance of 2 or more helpers is required for the patient to complete the activity. If activity was not attempted, code reason: 7-Patient Refused. 9-Not Applicable-not attempted and the patient did not perform the activity before the current illness, exacerbation or injury. 10-Not Attempted due to Environmental Limitations-(lack of equipment, weather restraints, etc.). 88-Not Attempted due to Medical Conditions or Safety Concerns. Bed Mobility: 6 Transfers (B,C,W/C): 6 Gait: 6 Stairs: 6 Indoor Mobility (Ambulation): Independent Stairs: Independent Prior Devices Use: Walker (4WW/), Other-see list below (cane) PT Evaluation-Current Subjective Patient agrees to PT. Dons socks independently. Objective Patient Orientation: Normal For Age ROM/Strength ROM Lower Extremities bilateral LE WFL Strength Lower Extremities 4-/5 grossly bilateral LE all planes Integumentary/Posture Bowel Incontinence: No Bladder Incontinence: No Posture kyphotic Neuromuscular (Tone, Coordination, Reflexes) grossly intact Sensory Vision: Wears Glasses Hearing: Functional Transfers Lying to Sitting/Side of Bed(Q: 6 Sit to Stand (QC): 4 Chair/Fhg-uj-[place] Xfer(QC): 4 Gait Mode of Locomotion: Walk Anticipated Mode of Locomotion: Walk Walk 10 feet (QC): 4 Walk 50 ft with 2 Turns(QC): 4 Walk 150 ft (QC): 4 Distance: 250' Gait Assistive Device: FWW Comments/Gait Description slow, step to gait sequence Balance Sitting Static: Normal Sitting Dynamic: Normal Standing Static: Fair Standing Dynamic: Fair Assessment/Needs Patient will benefit from short term skilled PT to address functional strength and mobility to improve current LOF to safely return to home at maximum LOF. Rehab Potential: Fair PT Shelter Goals Shelter Goals PT Electromechanical Technician Goals Time Frame: May 13, 2023 Roll Left & Right (QC): 6 Sit to Lying (QC): 6 Lying-Sitting on Side/Bed(QC): 6 Sit to Stand (QC): 6 Chair/Tdp-xn-Msyxx Xfer(QC): 6 Toilet Transfer (QC): 6 Walk 10 feet (QC): 6 Walk 50ft with 2 Turns (QC): 6 Walk 150 ft (QC): 6 1 Step (curb) (QC): 4 4 Steps (QC): 4 PT Plan Problem List Problem List: Activity Tolerance, Functional Strength, Safety, Balance, Gait, Transfer Treatment/Plan Treatment Plan: Continue Plan of Care Treatment Plan: Education, Functional Activity Guzman, Functional Strength, Gait, Safety, Therapeutic Exercise, Transfers Treatment Duration: May 13, 2023 Frequency: 6 times per week Estimated Hrs Per Day: .25 hour per day Patient and/or Family Agrees t: Yes Time Time In: 811 Time Out: 825 DATE: May 01, 2023 Total Billed Treatment Time: 14 Total Billed Treatment 1 visit [facility] 14 min STEFANY GODWIN PT May 01, 2023 09:20
[2023-05-01 10:21] LABS: PROTHROMBIN TIME PATIENT 22.8 SEC (12.2-14.7)
[2023-05-01] MEDS ORDERED: POTASSIUM CHLORIDE 20 MEQ TABLET PO NR (10:30)
[2023-05-01 11:16] VITALS: BP 116/71
[2023-05-01] MEDS ORDERED: LEVO-55 PO (11:53)
--- NOTE | 2023-05-01 12:33 | Progress Note - Hospitalist ---
JARON,HET 05/01/23 1233: Subjective HPI/CC On Admission Date Seen by Provider: May 01, 2023 Time Seen by Provider: 10:30 CC: severe hyponatremia Subjective/Events-last exam Patient felt well today and was no longer confused. She talked about having multiple UTI's throughout her life and 2 bumps on her present since she fell down but reports no pain. She was having hematuria when she arrived to the ED, but she reports no more and her anemia has improved. She denies any nausea, vomiting, abdominal pain, or chest pain. She reports normal bowel movement and no pain on urination. Hospital Course: 88 y/o female presents to the ED after having mutiple falls in the past few weeks and having resulting b/l hip pain but more significant on the left side. Head CT and pelvic CT from a fall that occurred 3 weeks ago had no significant findings but her family reports she has been having pain despite taking tramadol and tylenol for relief. She normally uses a walker at home with a belt. CT of lumbar spine and pelvis on 04/24/23 showed hematoma of the muscle without acute fracture. Her PMH includes HTN, HLD, Afib- on Coumadin, CHF-on hydrochlorothiazide, and multiple UTI's. She was admitted due to inability to ambulate and severe hyponatremia which resolved during her stay. Patient had hematuria along with anemia both of which also resolved. She was started on ceftriaxone for possible UTI but urine cultures showed no growth. Patient denied any fever, abdominal or chest pain. Due to increased risk of intracranial hemorrhage Coumadin was held during patients stay which she also agreed to. She felt generally weak, tired and was unable to ambulate, but overall she said she did feel better and her hip pain had decreased. No other symptoms were reported and patient was discharged on 05/01/23. Review of Systems General: No Chills, No Night Sweats; Fatigue, Malaise, Appetite HEENT: No Head Aches, No Visual Changes, No Eye Pain, No Sore Throat Gastrointestinal: No: Nausea, Vomiting, Abdominal Pain, Diarrhea, Constipation Objective Exam Vital Signs Vital Signs Date Time Temp Pulse Resp B/P (MAP) Pulse Ox O2 Delivery O2 Flow Rate FiO2 05/01/23 11:16 36.8 84 16 116/71 (86) 98 Room Air 05/01/23 03:17 2.00 Capillary Refill : Less Than 3 Seconds General Appearance: No Apparent Distress Respiratory: Chest Non Tender, Lungs Clear, Normal Breath Sounds, No Accessory Muscle Use, No Respiratory Distress Cardiovascular: No Edema, No JVD, No Murmur, Normal Peripheral Pulses Gastrointestinal: No Organomegaly, No Pulsatile Mass, Non Tender, Soft Back: Normal Inspection, No CVA Tenderness, No Vertebral Tenderness Extremity: Normal Capillary Refill, Normal Inspection, Non Tender, No Calf Tenderness, No Pedal Edema; No Inflammation Neurologic/Psychiatric: Alert, Oriented x3, No Motor/Sensory Deficits, Normal Mood/Affect Results/Procedures Lab Laboratory Tests 05/01/23 07:45 Patient resulted labs reviewed. Assessment/Plan Assessment and Plan Assess & Plan/Chief Complaint Assessment: Hyponatremia- resolved impaired ambulation Anemia Hematuria- resolved hematoma Anticoagulated on Coumadin Plan: restart home meds Discharge LU VARGAS DO 05/02/23 0453: Supervisory-Addendum Brief Verification & Attestation Participated in pt care: history, MDM, physical Personally performed: exam, history, MDM, supervision of care Care discussed with: Medical Student Procedures: n/a Results interpretation: Verified all documentation Verification and Attestation of Medical Student E/M Service A medical student performed and documented this service in my presence. I reviewed and verified all information documented by the medical student and made modifications to such information, when appropriate. I personally performed the physical exam and medical decision making. Lu Vargas May 02, 2023,04:53 TOVAR May 01, 2023 12:33 LU VARGAS DO May 02, 2023 04:53
--- NOTE | 2023-05-01 13:45 | Occupational Therapy Eval ---
OT Evaluation-General/PLF Medical Diagnosis Admission Date Apr 28, 2023 at 15:55 Medical Diagnosis: hyponatremia Onset Date: Apr 28, 2023 Therapy Diagnosis Therapy Diagnosis: decr self care, decr act uri, decr funct mobility, weakness Precautions Precautions/Isolations: Standard Precautions Referral Physician: Parvin Referral Reason: Evaluation/Treatment Medical History Pertinent Medical History: Atrial Fib, Heart Failure, HTN Additional Medical History Hyperlipidemia Current History Fell 3 weeks ago, hit her head. Fell 2 weeks ago, with bilat hip pain. Pt reported that she tends to fall backwards. Severe hyponatremia. Frailty, deconditioned Reviewed History: Yes Social History Home: Single Level Current Living Status: Alone (Daughter lives next door) Entry Into Home: Stairs Without Railing Steps Into Home: 2 ADL-Prior Level of Function SCALE: Activities may be completed with or without assistive devices. 1-Hodpuqgomq-adswjow completes the activity by him/herself with no assistance from a helper. 5-Set-up or Clean-up Assistance-helper sets up or cleans up; patient completes activity. [place] assists only prior to or following the activity. 4-Supervision or Touching Assistance-helper provides verbal cues and/or touching/steadying and/or contact guard assistance as patient completes activity. Assistance may be provided throughout the activity or intermittently. 3-Partial/Moderate Assistance-helper does LESS THAN HALF the effort. [place] lifts, holds or supports trunk or limbs, but provides less than half the effort. 2-Substantial/Maximal Assistance-helper does MORE THAN HALF the effort. [place] lifts or holds trunk or limbs and provides more than half the effort. 7-Wfvxsefxd-dymunw does ALL the effort. Patient does none of the effort to complete the activity. Or, the assistance of 2 or more helpers is required for the patient to complete the activity. If activity was not attempted, code reason: 7-Patient Refused. 9-Not Applicable-not attempted and the patient did not perform the activity before the current illness, exacerbation or injury. 10-Not Attempted due to Environmental Limitations-(lack of equipment, weather restraints, etc.). 88-Not Attempted due to Medical Conditions or Safety Concerns. ADL PLOF Comments Pt reported that she was previously able to care for her personal needs. Her daughter helped occasionally with cleaning and laundry and they shared meals at times. She said that she has started to need help with paying bills but sets up her own medications. 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 No pain mentioned. Appearance Alert, cooperative. Knew where to look for date Current Glasses/Contacts: Yes Hearing Aids: No Dentures/Partials: No Hand Dominance: Right Upper Extremity ROM Grossly WFL bilat Upper Extremity Coordination Grossly WFL Upper Extremity Strength Grossly 4/5 bilat ADL-Treatment ADL-Current Pt reported that she thought she was going to therapy at [facility] today. PT reported that she donned her socks independently earlier today. She was feeding herself and didn't need setup. She reported that she went to the bathroom just before she ate and didn't need to go again (she said someone walked with her but she did the toileting). Nursing reported toileting with one person assist. Walked with PT 250 feet with SBA 4, FWW. Pt left up in recliner to finish eating, all needs met. Eating (QC): 6 On/Off Footwear (QC): 5 Toileting Hygiene (QC): 4 Education OT Patient Education: Purpose of tx/functional activities, Rehab process Teaching Recipient: Patient Teaching Methods: Discussion Response to Teaching: Verbalize Understanding OT Group Home Goals Mail Room Clerk Goals Time Frame: May 05, 2023 Eating (QC): 6 Oral Hygiene (QC): 6 Toileting Hygiene (QC): 6 Shower/Bathe Self (QC): 6 Upper Body Dressing (QC): 6 Lower Body Dressing (QC): 6 On/Off Footwear (QC): 6 Additional Goals: 1-Demonstrate ADL Tasks, 2-Verbalize Understanding, 3- ImproveStrength/Guzman 1=Demonstrate adherence to instructed precautions during ADL tasks. 2=Patient will verbalize/demonstrate understanding of assistive devices/modifications for ADL. 3=Patient will improve strength/tolerance for activity to enable patient to perform ADL's. OT Education/Plan Problem List/Assessment Assessment: Decreased Activ Tolerance, Decreased UE Strength, Dependent Transfers, Impaired Funct Balance, Impaired Self-Care Skills Discharge Recommendations Plan/Recommendations: Continue POC Treatment Plan/Plan of Care Treatment,Training & Education: Yes Patient would benefit from OT for education, treatment and training to promote independence in ADL's, mobility, safety and/or upper extremity function for ADL's. Plan of Care: ADL Retraining, Functional Mobility, UE Funct Exercise/Act Treatment Duration: May 05, 2023 Frequency: 3 times per week (3-5 times a week) Estimated Hrs Per Day: .25 hour per day Agreement: Yes Rehab Potential: Fair Time Start Time: 12:48 Stop Time: 13:10 DATE: May 01, 2023 Total Time Billed (hr/min): 22 Billed Treatment Time visit, 22 minutes evaluation moderate DARWIN ZHANG OT May 01, 2023 13:45
[2023-05-01 15:44] VITALS: BP 121/81
[2023-05-01] MEDS ORDERED: warFARin 4 MG (COUMADIN) TAB PO SCH (18:00)
[2023-05-01] MEDS ORDERED: dilTIAZem INJ 25 MG/5 ML VIAL IVP NR (18:15)
[2023-05-01] MEDS ORDERED: dilTIAZem DRIP PRE-MIX 125 ML IV ONE (18:17)
[2023-05-01] MEDS ORDERED: dilTIAZem INJ 25 MG/5 ML VIAL ONE (18:17)
[2023-05-01] MEDS: dilTIAZem DRIP PRE-MIX 125 ML IV SCH (18:19)
[2023-05-01] MEDS: POTASSIUM CHLORIDE 10 MEQ TABLET PO SCH (18:19)
--- NOTE | 2023-05-01 19:43 | Tele-ICU Progress Note ---
Subjective Date Seen by a Provider: May 01, 2023 Subjective/Events-last exam This virtual visit was conducted using real time audio/video. Thank you for asking us to see this patient for critical care services due to afib/RVR. Recent events: Transferred from floor where original admit was for low Na, falls, unable to ambulate. PE: Appears comfortable. VSS. O2 sat 96% on RA HEENT: No obvious masses, adenopathy or JVD. Chest: clear to auscultation. CV: Irreg 95-100 afib. S1 S2 No murmur or added sounds. Abd: Non-tender. Bowel sounds Y. : Unremarkable. Raphael N. SUPERVISOR STONE/psychiatric: Grossly intact. No obvious focal findings. Extremities: No edema. Capillary refill < 3 seconds. Skin: unremarkable. Results: Elevated BG120. Decreased K3.0, Hb 10.1. Available chart/ vitals / labs / images reviewed. Video assessment done using teleICU camera, rest of exam as per RN. A/P: . Critical Care: critically ill patient. Cont. Cardizem IV, replace K. Cont Celexa, Coumadin, Norvasc, Metop. Discussed with JAIDA Alford. Asked RN to reach out to eICU if any questions or concerns later. Time spent with patient/coordination of care with other health professionals (mins): 22. Sepsis Event Evaluation Height, Weight, BMI Height: '" Weight: lbs. oz. kg; 27.83 BMI Method: Exam Exam Patient acknowledged, consented, and participated in this virtual visit which was conducted using real time audio/video Vital Signs Date Time Temp Pulse Resp B/P (MAP) Pulse Ox O2 Delivery O2 Flow Rate FiO2 05/01/23 19:12 36.2 125 19 120/103 (109) 90 Room Air 05/01/23 18:30 36.7 Room Air 05/01/23 18:20 135 130/88 05/01/23 18:19 135 130/88 05/01/23 18:00 120 13 130/88 (102) 98 Room Air 05/01/23 17:58 99 Room Air 05/01/23 15:44 36.4 100 20 121/81 (94) 98 Room Air 05/01/23 13:00 120 05/01/23 11:16 36.8 84 16 116/71 (86) 98 Room Air 05/01/23 08:00 Room Air 05/01/23 07:43 36.3 88 16 113/78 (90) 99 Room Air 05/01/23 07:13 136 05/01/23 03:17 36.7 76 18 150/89 (109) 97 Nasal Cannula 2.00 05/01/23 01:00 85 04/30/23 23:35 36.7 97 18 147/70 (95) 97 Nasal Cannula 2.00 04/30/23 20:13 37.8 98 18 133/85 (101) 98 Nasal Cannula 2.00 04/30/23 19:43 Room Air I & O 05/01/23 07:00 Intake Total 1280 ml Balance 1280 ml Height & Weight Height: '" Weight: lbs. oz. kg; 27.83 BMI Method: General Appearance: No Apparent Distress HEENT: Other (Posterior scalp hematoma with ecchymosis extending down into the neck area nontender normal range of motion of the neck.) Neck: Full Range of Motion, Normal Inspection, Non Tender Respiratory: Chest Non Tender, Lungs Clear, Normal Breath Sounds, No Accessory Muscle Use, No Respiratory Distress Cardiovascular: No Edema, No JVD, No Murmur, Normal Peripheral Pulses Capillary Refill: Less Than 3 Seconds Extremity: Normal Capillary Refill, Normal Inspection, Non Tender, No Calf Tenderness, No Pedal Edema; No Inflammation Neurologic/Psychiatric: Alert, Oriented x3, No Motor/Sensory Deficits, Normal Mood/Affect Skin: Pallor Lymphatic: No Adenopathy Results Lab Laboratory Tests 05/01/23 07:45 Assessment/Plan Assessment/Plan See free text. Critical Care: Critically Ill Patient LESLI ALMEIDA MD May 01, 2023 19:43
[2023-05-01] MEDS ORDERED: NS IV 500 ML 500 ML IV PRN (19:45)
[2023-05-01] MEDS ORDERED: OMEPRAZOLE 20 MG CAPSULE (NON-FORMULARY) PO SCH (21:00)
[2023-05-01] MEDS ORDERED: NON-FORMULARY MEDICATION 1 EA EA (Potassium Chloride 10 MEQ) PO SCH (21:00)
[2023-05-01] MEDS ORDERED: NON-FORMULARY MEDICATION 1 EA EA (Metoprolol Succinate 200 MG) PO SCH (21:00)
[2023-05-01] MEDS ORDERED: NON-FORMULARY MEDICATION 1 EA EA (Lovastatin 20 MG) PO SCH (21:00)
[2023-05-01] MEDS ORDERED: meTOprolol TARTRATE (IR) 50 MG TABLET PO SCH (21:00)
[2023-05-01] MEDS ORDERED: NON-FORMULARY MEDICATION 1 EA EA (Cyanocobalamin (Vitamin B-12) (Vitamin B-12) 1,000 MCG) PO SCH (21:00)
[2023-05-01] MEDS: CYANOCOBALAMIN 1,000 MCG TABLET PO SCH (21:11)
[2023-05-01] MEDS: ASPIRIN 81 MG CHEWABLE TABLET PO SCH (21:12)
[2023-05-01] MEDS: CITALOPRAM 20 MG TABLET PO SCH (21:15)
[2023-05-01] MEDS: PANTOPRAZOLE 20 MG TABLET PO SCH (21:15)
[2023-05-01] MEDS: OXYBUTYNIN 5 MG TABLET PO SCH (21:16)
[2023-05-01] MEDS ORDERED: POTASSIUM CL 10MEQ/50ML IVPB 400 ML IV ONE (22:24)
[2023-05-01] MEDS: POTASSIUM CL 10MEQ/50ML IVPB 50 ML IV SCH (22:29)
[2023-05-02] MEDS: POTASSIUM CL 10MEQ/50ML IVPB 50 ML IV SCH ×6 (00:41→04:19)
[2023-05-02] MEDS: ACETAMINOPHEN 500 MG TABLET PO PRN ×2 (00:45→20:50)
[2023-05-02] MEDS ORDERED: POTASSIUM CL 10MEQ/50ML IVPB 50 ML IV SCH ×2 (01:00→06:00)
[2023-05-02 04:31] LABS: BASOPHILS % (AUTO) 0 % (0-10); EOSINOPHILS # (AUTO) 0.3 10^3/uL (0.0-0.3); EOSINOPHILS % (AUTO) 4 % (0-10); HEMATOCRIT 28 % (35-52); LYMPHOCYTES # (AUTO) 1.3 10^3/uL (1.0-4.0); LYMPHOCYTES % (AUTO) 18 % (12-44); MEAN CORPUSCULAR HEMOGLOBIN 32 pg (25-34); MEAN CORPUSCULAR HGB CONC 32 g/dL (32-36); MEAN CORPUSCULAR VOLUME 101 fL (80-99); MEAN PLATELET VOLUME 10.5 fL (9.0-12.2); MONOCYTES # (AUTO) 0.9 10^3/uL (0.0-1.0); MONOCYTES % (AUTO) 12 % (0-12); NEUTROPHILS # (AUTO) 4.6 10^3/uL (1.8-7.8); NEUTROPHILS % (AUTO) 64 % (42-75); PLATELET COUNT 269 10^3/uL (130-400); WHITE BLOOD COUNT 7.1 10^3/uL (4.3-11.0)
[2023-05-02 04:50] LABS: INR 1.8 (0.8-1.4); PROTHROMBIN TIME PATIENT 20.7 SEC (12.2-14.7)
[2023-05-02 04:52] LABS: ALBUMIN 3.2 GM/DL (3.2-4.5); CREATININE SERUM 0.7 MG/DL (0.60-1.30); MAGNESIUM 1.7 MG/DL (1.6-2.4); POTASSIUM 4.7 MMOL/L (3.6-5.0); TOTAL PROTEIN 5.7 GM/DL (6.4-8.2)
[2023-05-02] MEDS ORDERED: POTASSIUM CHLORIDE 20 MEQ TABLET PO SCH ×2 (06:00→07:00)
[2023-05-02] MEDS ORDERED: MAGNESIUM 1 GM/100 ML IVPB 100 ML IV SCH (06:00)
[2023-05-02] MEDS ORDERED: POTASSIUM BICARB 20 MEQ effervescent TABLET PO SCH (06:00)
[2023-05-02] MEDS: THERAPEUTIC MULTIVITAMIN W/MINERALS TABLET PO SCH (06:15)
--- NOTE | 2023-05-02 06:59 | Physical Therapy Progress Note ---
Therapy Progress Note Patient transferred to ICU due to A-fib with RVR. PT will require new orders when patient is deemed medically stable and able to actively participate with skilled PT. STEFANY GODWIN PT May 02, 2023 06:59
[2023-05-02] MEDS: dilTIAZem DRIP PRE-MIX 125 ML IV SCH (07:46)
[2023-05-02] MEDS: MAGNESIUM 1 GM/100 ML IVPB 100 ML IV SCH ×4 (07:46→09:51)
--- NOTE | 2023-05-02 07:49 | Consultation-Cardiology ---
HPI-Cardiology Cardiology Consultation Date of Consultation 05/02/23 Date of Admission Time Seen by Provider: 07:45 Indication: Atrial fibrillation HPI 88-year-old lady with history of atrial fibrillation, hypertension and congestive heart failure. She was brought to the hospital for hip pain, she has multiple falls and generalized weakness. While in the hospital patient had atrial fibrillation with rapid ventricular response. I was called for evaluation and transfer the patient to ICU and started her on Cardizem drip. Patient was on large dose of metoprolol which was held on admission. It was restarted yesterday Home Medications & Allergies Allergies: Coded Allergies: amoxicillin (Verified Allergy, Unknown, 04/28/23) penicillin G (Verified Allergy, Unknown, 05/30/19) Home Medication List Reviewed: Yes AGU-Hiloxh-Zqhonb Hx Patient Social History Employed/Student: retired 2nd Hand Smoke Exposure: No Recent Hopitalizations: No Alcohol Use?: No Immunizations Up To Date Date of Influenza Vaccine: Aug 11, 2022 Past Medical History Discussed below Family Medical History Significant Family History: No Pertinent Family Hx Review of Systems-General Review of Systems Constitutional: see HPI, malaise EENTM: no symptoms reported Respiratory: see HPI; No cough; dyspnea on exertion; No hemoptysis, No orthopnea, No phlegm, No short of breath, No stridor, No wheezing, No other Cardiovascular: see HPI; No chest pain, No edema, No Hx of Intervention, No palpitations, No syncope, No vascular heart diseas, No other Gastrointestinal: see HPI Genitourinary: no symptoms reported Musculoskeletal: see HPI Skin: no symptoms reported Psychiatric/Neurological: No Symptoms Reported All Other Systems Reviewed Negative Unless Noted: Yes Reviewed Test Results Reviewed Test Results Lab Laboratory Tests Test 05/02/23 03:52 Range/Units White Blood Count 7.1 4.3-11.0 10^3/uL Red Blood Count 2.80 L 3.80-5.11 10^6/uL Hemoglobin 9.0 L 11.5-16.0 g/dL Hematocrit 28 L 35-52 % Mean Corpuscular Volume 101 H 80-99 fL Mean Corpuscular Hemoglobin 32 25-34 pg Mean Corpuscular Hemoglobin Concent 32 32-36 g/dL Red Cell Distribution Width 16.4 H 10.0-14.5 % Platelet Count 269 130-400 10^3/uL Mean Platelet Volume 10.5 9.0-12.2 fL Immature Granulocyte % (Auto) 1 % Neutrophils (%) (Auto) 64 42-75 % Lymphocytes (%) (Auto) 18 12-44 % Monocytes (%) (Auto) 12 0-12 % Eosinophils (%) (Auto) 4 0-10 % Basophils (%) (Auto) 0 0-10 % Neutrophils # (Auto) 4.6 1.8-7.8 10^3/uL Lymphocytes # (Auto) 1.3 1.0-4.0 10^3/uL Monocytes # (Auto) 0.9 0.0-1.0 10^3/uL Eosinophils # (Auto) 0.3 0.0-0.3 10^3/uL Basophils # (Auto) 0.0 0.0-0.1 10^3/uL Immature Granulocyte # (Auto) 0.1 0.0-0.1 10^3/uL Prothrombin Time 20.7 H 12.2-14.7 SEC INR Comment 1.8 H 0.8-1.4 Sodium Level 139 135-145 MMOL/L Potassium Level 4.7 3.6-5.0 MMOL/L Chloride Level 104 98-107 MMOL/L Carbon Dioxide Level 26 21-32 MMOL/L Anion Gap 9 5-14 MMOL/L Blood Urea Nitrogen 10 7-18 MG/DL Creatinine 0.70 0.60-1.30 MG/DL Estimat Glomerular Filtration Rate 84 BUN/Creatinine Ratio 14 Glucose Level 98 70-105 MG/DL Calcium Level 9.0 8.5-10.1 MG/DL Corrected Calcium 9.6 8.5-10.1 MG/DL Phosphorus Level 3.0 2.3-4.7 MG/DL Magnesium Level 1.7 1.6-2.4 MG/DL Total Bilirubin 1.0 0.1-1.0 MG/DL Aspartate Amino Transf (AST/SGOT) 18 5-34 U/L Alanine Aminotransferase (ALT/SGPT) 10 0-55 U/L Alkaline Phosphatase 71 40-136 U/L Total Protein 5.7 L 6.4-8.2 GM/DL Albumin 3.2 3.2-4.5 GM/DL Physical Exam Physical Exam Vital Signs Vital Signs - First Documented 04/28/23 04/28/23 13:15 16:44 Temp 35.4 Pulse 94 Resp 16 B/P (MAP) 129/81 (97) Pulse Ox 95 O2 Delivery Room Air O2 Flow Rate 2.00 Capillary Refill : Less Than 3 Seconds Height, Weight, BMI Height: '" Weight: lbs. oz. kg; 26.74 BMI Method: General Appearance: No Apparent Distress Eyes: Bilateral Eye Normal Inspection, Bilateral Eye PERRL, Bilateral Eye EOMI HEENT: Other (Posterior scalp hematoma with ecchymosis extending down into the neck area nontender normal range of motion of the neck.) Neck: Full Range of Motion, Normal Inspection, Non Tender Respiratory: Chest Non Tender, Lungs Clear, Normal Breath Sounds, No Accessory Muscle Use, No Respiratory Distress Cardiovascular: No Edema, No JVD, No Murmur, Normal Peripheral Pulses, Irregularly Irregular Gastrointestinal: No Organomegaly, No Pulsatile Mass, Non Tender, Soft Back: Normal Inspection, No CVA Tenderness, No Vertebral Tenderness Extremity: Normal Capillary Refill, Normal Inspection, Non Tender, No Calf Tenderness, No Pedal Edema; No Inflammation Neurologic/Psychiatric: Alert, Oriented x3, No Motor/Sensory Deficits, Normal Mood/Affect Skin: Pallor Lymphatic: No Adenopathy A/P-Cardiology Admission Diagnosis Atrial fibrillation Tachycardia Coumadin toxicity Generalized weakness Assessment/Plan Atrial fibrillation with rapid ventricular response Transferred to ICU and started on Cardizem drip Toprol-XL 200 mg daily was restarted last night Heart rate is better I will DC Cardizem drip and monitor Chronic coumadinization, elevated INR, improving after holding Coumadin. Patient has a hematoma. Improving Generalized weakness, evaluated and managed by primary care physician Hypokalemia, replaced LEYLA SALOMON MD May 02, 2023 07:48
--- NOTE | 2023-05-02 08:16 | Occ Therapy Progress Note ---
Therapy Progress Note Pt transferred to ICU and will need new OT orders due to higher level of care. DARWIN ZHANG OT May 02, 2023 08:16
[2023-05-02] MEDS: amLODIPine 10 MG TABLET PO SCH (08:44)
[2023-05-02] MEDS: OXYBUTYNIN 5 MG TABLET PO SCH ×2 (08:44→20:49)
[2023-05-02] MEDS: POTASSIUM CHLORIDE 10 MEQ TABLET PO SCH ×2 (08:44→18:28)
[2023-05-02] MEDS: DOCUSATE SODIUM 100 MG CAPSULE PO SCH ×2 (08:44→20:49)
[2023-05-02] MEDS: SENNOSIDES 8.6 MG (SENOKOT) TAB PO SCH ×2 (08:44→20:49)
[2023-05-02] MEDS: CALCIUM CARBONATE 600 MG TABLET PO SCH (08:44)
[2023-05-02] MEDS ORDERED: DHA PO SCH (09:00)
[2023-05-02] MEDS ORDERED: LUT PO SCH (09:00)
[2023-05-02] MEDS ORDERED: ZEA PO SCH (09:00)
[2023-05-02] MEDS ORDERED: NON-FORMULARY MEDICATION 1 EA EA (Multivitamin 1 EACH) PO SCH (09:00)
[2023-05-02] MEDS ORDERED: FISH PO SCH (09:00)
[2023-05-02] MEDS ORDERED: MV MN PO SCH (09:00)
[2023-05-02] MEDS ORDERED: [UNRECOGNIZED DRUG - OTHER] PO SCH (09:00)
[2023-05-02] MEDS ORDERED: EPA PO SCH (09:00)
--- NOTE | 2023-05-02 13:35 | Physical Therapy Evaluation ---
PT Evaluation-General Medical Diagnosis Admission Date Apr 28, 2023 at 15:55 Medical Diagnosis: hyponatremia Onset Date: Apr 28, 2023 Therapy Diagnosis Therapy Diagnosis: debility/weakness Precautions Precautions/Isolations: Fall Prevention, Standard Precautions Referral Physician: Parvin Reason for Referral: Evaluation/Treatment Medical History Pertinent Medical History: Atrial Fib, Heart Failure, HTN Reviewed History: Yes Social History Home: Single Level Current Living Status: Alone (Daughter lives next door) Entry Into Home: Stairs Without Railing PT Steps Into Home: 2 Prior Prior Level of Function SCALE: Activities may be completed with or without assistive devices. 9-Tcrfjdjmfs-pabmjiv completes the activity by him/herself with no assistance from a helper. 5-Set-up or Clean-up Assistance-helper sets up or cleans up; patient completes activity. Ramsay assists only prior to or following the activity. 4-Supervision or Touching Assistance-helper provides verbal cues and/or touching/steadying and/or contact guard assistance as patient completes activity. Assistance may be provided throughout the activity or intermittently. 3-Partial/Moderate Assistance-helper does LESS THAN HALF the effort. Ramsay lifts, holds or supports trunk or limbs, but provides less than half the effort. 2-Substantial/Maximal Assistance-helper does MORE THAN HALF the effort. Ramsay lifts or holds trunk or limbs and provides more than half the effort. 9-Rdnnfkewm-htrvys does ALL the effort. Patient does none of the effort to complete the activity. Or, the assistance of 2 or more helpers is required for the patient to complete the activity. If activity was not attempted, code reason: 7-Patient Refused. 9-Not Applicable-not attempted and the patient did not perform the activity before the current illness, exacerbation or injury. 10-Not Attempted due to Environmental Limitations-(lack of equipment, weather restraints, etc.). 88-Not Attempted due to Medical Conditions or Safety Concerns. Bed Mobility: 6 Transfers (B,C,W/C): 6 Gait: 6 Stairs: 6 Indoor Mobility (Ambulation): Independent Stairs: Independent Prior Devices Use: Walker (4WW/), Other-see list below (cane) PT Evaluation-Current Subjective Patient agrees to PT. Objective Patient Orientation: Normal For Age ROM/Strength ROM Lower Extremities bilateral LE WFL Strength Lower Extremities 4-/5 grossly bilateral LE all planes Integumentary/Posture Bowel Incontinence: No Bladder Incontinence: No Sensory Vision: Wears Glasses Hearing: Functional Hand Dominance: Right Transfers Lying to Sitting/Side of Bed(Q: 6 Sit to Stand (QC): 4 Chair/Gvv-yx-Bzhpt Xfer(QC): 4 Gait Mode of Locomotion: Walk Anticipated Mode of Locomotion: Walk Walk 10 feet (QC): 4 Walk 50 ft with 2 Turns(QC): 4 Walk 150 ft (QC): 4 Distance: 250' Gait Assistive Device: FWW Comments/Gait Description slow, steady, reciprocal pattern Balance Sitting Static: Normal Sitting Dynamic: Normal Standing Static: Normal Standing Dynamic: Normal Assessment/Needs Patient will be seen short term by skilled PT to address functional strength and mobility to improve current LOF to safely return to home at maximum LOF. Rehab Potential: Fair PT Senior Living Goals Weather Analyst Goals PT Senior Living Goals Time Frame: May 13, 2023 Roll Left & Right (QC): 6 Sit to Lying (QC): 6 Lying-Sitting on Side/Bed(QC): 6 Sit to Stand (QC): 6 Chair/Nqf-vq-Egarg Xfer(QC): 6 Toilet Transfer (QC): 6 Walk 10 feet (QC): 6 Walk 50ft with 2 Turns (QC): 6 Walk 150 ft (QC): 6 1 Step (curb) (QC): 4 4 Steps (QC): 4 PT Plan Problem List Problem List: Activity Tolerance, Functional Strength, Balance, Gait, Transfer Treatment/Plan Treatment Plan: Continue Plan of Care Treatment Plan: Education, Functional Activity Guzman, Functional Strength, Gait, Safety, Therapeutic Exercise, Transfers Treatment Duration: May 13, 2023 Frequency: 6 times per week Estimated Hrs Per Day: .25 hour per day Patient and/or Family Agrees t: Yes Time Time In: 1245 Time Out: 1300 DATE: May 02, 2023 Total Billed Treatment Time: 15 [facility] PT May 02, 2023 13:35
--- NOTE | 2023-05-02 14:18 | Progress Note - Hospitalist ---
SMOOTH OLIVEIRA F 05/02/23 1417: Subjective HPI/CC On Admission CC: severe hyponatremia Subjective/Events-last exam Dorita Vora was seen this morning and she appeared to be doing well. She denies any ongoing weakness, dysuria, and hematuria. She also denies chest pain and shortness of breath. She was supposed to be discharged today but went into afib with RVR. Cardiology was consulted. Review of Systems General: No Chills, No Night Sweats, No Fatigue, No Malaise, No Appetite, No Other Pulmonary: No Dyspnea, No Cough, No Pleuritic Chest Pain, No Other Cardiovascular: No: Chest Pain, Palpitations, Orthopnea, Paroxysmal Noc. Dyspnea, Edema, Lt Headedness, Other Genitourinary: No Dysuria, No Frequency, No Incontinence, No Hematuria, No Retention, No Other Neurological: No: Weakness, Numbness, Incoordination, Change in speech, Confusion, Seizures, Other Objective Exam Vital Signs Vital Signs Date Time Temp Pulse Resp B/P (MAP) Pulse Ox O2 Delivery O2 Flow Rate FiO2 05/02/23 12:33 67 05/02/23 12:00 36.3 05/02/23 11:00 15 132/70 (90) 95 Room Air 05/02/23 09:00 2.00 Capillary Refill : Less Than 3 Seconds General Appearance: No Apparent Distress, WD/WN Neck: Normal Inspection, Supple Respiratory: Lungs Clear, Normal Breath Sounds, No Accessory Muscle Use, No Respiratory Distress Cardiovascular: No Murmur, Normal Peripheral Pulses, Irregularly Irregular Neurologic/Psychiatric: Alert Results/Procedures Lab Laboratory Tests 05/02/23 03:52 Patient resulted labs reviewed. Assessment/Plan Assessment and Plan Assess & Plan/Chief Complaint Assessment and Plan - Afib with RVR >cardiology transferred to ICU >started cardizem drip and restarted at home metoprolol 200mg yesterday > HR has improved to 67 this morning > cardiology will d/c cardizem drip and continue to monitor > move to floor today, monitor HR for today and plan for discharge tomorrow -Hypokalemia > 3.0 yesterday, replaced and 4.7 this morning > continue to monitor with scheduled labs - Coumadinization > Was 3.5 on 04/28, coudmadin was held and was 1.8 this morning > restart coumadin for therapeutic range INR of 2-3 LU VARGAS DO 05/02/230: Supervisory-Addendum Brief Verification & Attestation Participated in pt care: history, MDM, physical Personally performed: exam, history, MDM, supervision of care Care discussed with: Medical Student Procedures: n/a Results interpretation: Verified all documentation Verification and Attestation of Medical Student E/M Service A medical student performed and documented this service in my presence. I reviewed and verified all information documented by the medical student and made modifications to such information, when appropriate. I personally performed the physical exam and medical decision making. Lu Vargas, May 02, 2023,19:39 SMOOTH OLIVEIRA May 02, 2023 14:17 LU VARGAS DO May 02, 2023 19:40
[2023-05-02 16:41] VITALS: BP 135/66
[2023-05-02] MEDS ORDERED: warFARin 2 MG (COUMADIN) TAB PO SCH (18:00)
[2023-05-02 19:30] VITALS: BP 132/60
[2023-05-02] MEDS: CITALOPRAM 20 MG TABLET PO SCH (20:48)
[2023-05-02] MEDS: CYANOCOBALAMIN 1,000 MCG TABLET PO SCH (20:48)
[2023-05-02] MEDS: ASPIRIN 81 MG CHEWABLE TABLET PO SCH (20:48)
[2023-05-02] MEDS: PANTOPRAZOLE 20 MG TABLET PO SCH (20:49)
[2023-05-02 23:29] VITALS: BP 144/88
[2023-05-03 03:37] VITALS: BP 139/74
[2023-05-03 05:27] LABS: BASOPHILS % (AUTO) 0 % (0-10); EOSINOPHILS # (AUTO) 0.4 10^3/uL (0.0-0.3); EOSINOPHILS % (AUTO) 5 % (0-10); HEMATOCRIT 28 % (35-52); LYMPHOCYTES # (AUTO) 0.9 10^3/uL (1.0-4.0); LYMPHOCYTES % (AUTO) 13 % (12-44); MEAN CORPUSCULAR HEMOGLOBIN 33 pg (25-34); MEAN CORPUSCULAR HGB CONC 32 g/dL (32-36); MEAN CORPUSCULAR VOLUME 102 fL (80-99); MEAN PLATELET VOLUME 10.3 fL (9.0-12.2); MONOCYTES # (AUTO) 0.7 10^3/uL (0.0-1.0); MONOCYTES % (AUTO) 10 % (0-12); NEUTROPHILS # (AUTO) 4.8 10^3/uL (1.8-7.8); NEUTROPHILS % (AUTO) 70 % (42-75); PLATELET COUNT 240 10^3/uL (130-400); WHITE BLOOD COUNT 6.9 10^3/uL (4.3-11.0)
[2023-05-03] MEDS: THERAPEUTIC MULTIVITAMIN W/MINERALS TABLET PO SCH (05:41)
[2023-05-03 05:45] LABS: INR 1.9 (0.8-1.4); PROTHROMBIN TIME PATIENT 21.5 SEC (12.2-14.7)
[2023-05-03 05:56] LABS: ALBUMIN 3.1 GM/DL (3.2-4.5); BILIRUBIN,TOTAL 0.9 MG/DL (0.1-1.0); CALCIUM 8.8 MG/DL (8.5-10.1); CREATININE SERUM 0.74 MG/DL (0.60-1.30); POTASSIUM 4.2 MMOL/L (3.6-5.0); TOTAL PROTEIN 5.5 GM/DL (6.4-8.2)
[2023-05-03 07:26] VITALS: BP 164/79
[2023-05-03] MEDS: SENNOSIDES 8.6 MG (SENOKOT) TAB PO SCH (08:11)
[2023-05-03] MEDS: POTASSIUM CHLORIDE 10 MEQ TABLET PO SCH (08:11)
[2023-05-03] MEDS: CALCIUM CARBONATE 600 MG TABLET PO SCH (08:11)
[2023-05-03] MEDS: DOCUSATE SODIUM 100 MG CAPSULE PO SCH (08:11)
[2023-05-03] MEDS: amLODIPine 10 MG TABLET PO SCH (08:11)
[2023-05-03] MEDS: OXYBUTYNIN 5 MG TABLET PO SCH (08:11)
--- NOTE | 2023-05-03 09:37 | Cardiology Progress Note ---
Subjective Date Seen by Provider: May 03, 2023 Time Seen by Provider: 08:15 Subjective/Events-last exam Patient is sitting up in chair, denies any chest pain or dyspnea. Reporting improvement of her symptoms Objective-Cardiology Exam Last Set of Vital Signs Vital Signs 05/03/23 05/03/23 05/03/23 03:37 11:10 12:14 Temp 36.7 Pulse 96 Resp 16 B/P (MAP) 126/62 (83) Pulse Ox 95 O2 Delivery Room Air O2 Flow Rate 2.00 2.00 I&O Intake and Output 05/03/23 00:00 Intake Total 1700 ml Output Total 0 ml Balance 1700 ml Intake Oral 1200 ml IV Total 500 ml Output Urine Total 0 ml # Voids 3 General: Alert, Oriented X3, Cooperative HEENT: Atraumatic, PERRLA Lungs: Clear to Auscultation, Normal Air Movement Heart: Other (irregulary irregular) Abdomen: Soft Skin: No Rashes, No Significant Lesion Neuro: Normal Speech Results Lab Laboratory Tests 05/03/23 05:09 A/P-Cardiology Admission Diagnosis Atrial fibrillation Tachycardia Coumadin toxicity Generalized weakness Assessment/Plan Atrial fibrillation with rapid ventricular response Maintained on Toprol-XL 200 mg daily Heart rate is better Chronic coumadinization, elevated INR, improving after holding Coumadin. Patient has a hematoma. Improving Generalized weakness, evaluated and managed by primary care physician Hyponatremia, improved Hypokalemia, replaced Supervisory-Addendum Brief Supervisory Addendum Participated in pt care: history, MDM, physical Personally performed: exam, history, MDM Care discussed with: TRE Results interpretation: Verified all documentation Notes: Patient was seen and evaluated with Teja, examination performed, management plan was discussed, agree with the current scribed note, I made few changes to the note using Italic font Patient was seen at bedside, sitting comfortably Patient was restarted on her home dose of Toprol-XL 200 mg daily and her heart rate is better controlled Has hematoma, elevated INR. Change Coumadin to 2.5 mg daily and monitor tolerance and response TEJA MASON May 03, 2023 09:37 LEYLA SALOMON MD May 03, 2023 14:19
[2023-05-03] MEDS ORDERED: LOVA20TA2 PO (09:42)
[2023-05-03] MEDS ORDERED: WARF4TAB3 PO (09:42)
[2023-05-03] MEDS ORDERED: WARF-47 PO (09:42)
[2023-05-03] MEDS ORDERED: MV-M1CAP24 PO (09:42)
[2023-05-03] MEDS ORDERED: OXYB5TAB13 PO (09:42)
[2023-05-03] MEDS ORDERED: CYAN-23 PO (09:42)
[2023-05-03] MEDS ORDERED: POTA-177 PO (09:42)
[2023-05-03] MEDS ORDERED: CITA20TA9 PO (09:42)
[2023-05-03] MEDS ORDERED: TRM50T PO (09:42)
[2023-05-03] MEDS ORDERED: ASPI-999 PO (09:42)
[2023-05-03] MEDS ORDERED: SENN-234 PO (09:42)
[2023-05-03] MEDS ORDERED: OMEP20CA18 PO (09:42)
[2023-05-03] MEDS ORDERED: CALC600T91 PO (09:42)
[2023-05-03] MEDS ORDERED: METO200T48 PO (09:42)
[2023-05-03] MEDS ORDERED: AMLO-251 PO (09:42)
[2023-05-03] MEDS ORDERED: MULT-1136 PO (09:42)
--- NOTE | 2023-05-03 09:44 | Discharge Inst-Skilled Nursing ---
Discharge Inst-Skilled NF Reconcile Patient Problems Problems Reviewed?: Yes Chief Complaint CC: severe hyponatremia Patient Instructions Patient Problems: Debility AF Goal: [place] Consult/Follow Up/Orders Follow Up Appt.: PCP CT rounds Skilled NF Admit to: Certification (SNF) I certify that SNF services are required to be given on an inpatient basis because of the above named patient's need for fpc care on a continuing basis for the conditions(s) for which he/she was receiving inpatient hospital services prior to his/her transfer to the SNF. Oxygen Delivery Method: Room Air Discharge Diet: No Restrictions Resuscitation Status: Full Code New & Resume Previous Orders New Medications: Sennosides (Senna) 8.6 Mg Tablet 8.6 MG PO BID, #60 TAB Continued Medications: Amlodipine Besylate (Amlodipine Besylate) 10 Mg Tablet 10 MG PO DAILY, #30 TAB (This prescription has been renewed) Aspirin (Aspirin) 81 Mg Tab.chew 81 MG PO HS, #30 TAB (This prescription has been renewed) Calcium Carbonate (Calcium) 600 Mg Calcium (1500 Mg) Tablet 600 MG PO DAILY, #30 TAB (This prescription has been renewed) Citalopram Hydrobromide (Citalopram HBr) 20 Mg Tablet 20 MG PO HS, #30 TAB (This prescription has been renewed) Cyanocobalamin (Vitamin B-12) (Vitamin B-12) 1,000 Mcg Capsule 1000 MCG PO HS, #30 CAP (This prescription has been renewed) Lovastatin (Lovastatin) 20 Mg Tablet 20 MG PO HS, #30 TAB (This prescription has been renewed) Metoprolol Succinate (Metoprolol Succinate) 200 Mg Tab.er.24h 200 MG PO HS, #30 TAB (This prescription has been renewed) Multivitamin (Multivitamin) 1 Each Tablet 1 EACH PO DAILY, #30 TAB (This prescription has been renewed) Mv-Mn/Om3/Dha/Epa/Fish/Lut/Justine (Ocuvite Adult 50 Plus Softgel) 250 Mg (90 Mg-160 Mg)-5 Mg-1 Mg Capsule 1 EACH PO DAILY, #30 CAP (This prescription has been renewed) Omeprazole (Omeprazole) 20 Mg Capsule.dr 20 MG PO HS, #30 CAP (This prescription has been renewed) Oxybutynin Chloride (Oxybutynin Chloride) 5 Mg Tablet 5 MG PO BID, #60 TAB (This prescription has been renewed) Potassium Chloride (Potassium Chloride) 10 Meq Tab.er.prt 10 MEQ PO BID, #60 EA (This prescription has been renewed) Tramadol HCl (Tramadol HCl) 50 Mg Tablet 50 MG PO Q8H PRN for PAIN, #30 TAB 0 Refills (This prescription has been renewed) Warfarin Sodium (Warfarin Sodium) 2 Mg Tablet 2 MG PO Sat, Mon, , Th, #30 TAB (This prescription has been renewed) Warfarin Sodium (Warfarin Sodium) 4 Mg Tablet 4 MG PO Mon, Mon, Mon, #30 TAB (This prescription has been renewed) Discontinued Medications: Hydrochlorothiazide (Hydrochlorothiazide) 25 Mg Tablet 25 MG PO DAILY Levofloxacin (Levofloxacin) 500 Mg Tablet 500 MG PO DAILY FILLED 04-25-2023 #7/ DAY SUPPLY Lu Melendrez May 03, 2023 09:43 LU MELENDREZ DO May 03, 2023 09:44
--- NOTE | 2023-05-03 09:45 | Discharge Summary ---
Discharge Summary Hospital Course Was the Problem List Reviewed?: Yes Problems/Dx: (1) Atrial fibrillation with rapid ventricular response (2) Hyponatremia Status: Acute (3) Elevated INR Status: Acute (4) Anticoagulated on Coumadin Status: Acute (5) Impaired ambulation Status: Acute (6) Anemia Status: Acute Hospital Course Date of Admission: Apr 28, 2023 at 15:55 Admission Diagnosis : Family Physician/Provider: Pradeep Durbin MD Date of Discharge: 05/03/23 Discharge Diagnosis: [ ] Hospital Course: Dorita Vora is a 88 year old female with a past medical history of atrial fibrillation anticoagulated on Coumadin, HTN, hyperlipidemia, and CHF. She presented to the hospital by EMS of 04/28 and admitted for pain management of her hip pain. She had a history of several falls and generalized weakness over previous few weeks prior to admission. Her labs at the time of admission were significant for anemia with hgb of 9.5, severe hyponatremia of 123, and hypokalemia of 3.2. She was also having hematuria on admission and her INR was supratherapeutic at 3.5 and her Coumadin was temporarily held. She was being prepared for discharge but on 05/01 was moved to the ICU for being in atrial fibrillation with RVR. She was placed on a diltiazem drip which was soon after discontinued the same day and she was restarted on her at home 200mg Toprol and cardiology was monitoring her. Her heart rate has since been controlled and is now at 68 bpm on 05/03. She is no longer having any genitourinary symptoms. Her Coumadin was restarted on 05/02 at an INR of 1.8. Her sodium and potassium were both corrected and are 137 and 4.2, respectively on her day of discharge 05/03 and she admits improvement in her generalized weakness. SMOOTH OLIVEIRA May 03, 2023 12:34 Labs and Pending Lab Test: Laboratory Tests 05/03/23 05:09: White Blood Count 6.9, Red Blood Count 2.74L, Hemoglobin 9.0L, Hematocrit 28L, Mean Corpuscular Volume 102H, Mean Corpuscular Hemoglobin 33, Mean Corpuscular Hemoglobin Concent 32, Red Cell Distribution Width 16.6H, Platelet Count 240, Mean Platelet Volume 10.3, Immature Granulocyte % (Auto) 1, Neutrophils (%) (Auto) 70, Lymphocytes (%) (Auto) 13, Monocytes (%) (Auto) 10, Eosinophils (%) ( Auto) 5, Basophils (%) (Auto) 0, Neutrophils # (Auto) 4.8, Lymphocytes # (Auto) 0.9L, Monocytes # (Auto) 0.7, Eosinophils # (Auto) 0.4H, Basophils # (Auto) 0.0, Immature Granulocyte # (Auto) 0.0, Prothrombin Time 21.5H, INR Comment 1.9H, Sodium Level 137, Potassium Level 4.2, Chloride Level 105, Carbon Dioxide Level 26, Anion Gap 6, Blood Urea Nitrogen 15, Creatinine 0.74, Estimat Glomerular Filtration Rate 78, BUN/Creatinine Ratio 20, Glucose Level 103, Calcium Level 8.8, Corrected Calcium 9.5, Magnesium Level 2.0, Total Bilirubin 0.9, Aspartate Amino Transf (AST/SGOT) 16, Alanine Aminotransferase (ALT/SGPT) 10, Alkaline Phosphatase 73, Total Protein 5.5L, Albumin 3.1L Microbiology 05/01/23 MRSA Screen - Final, Complete MRSA not isolated 04/28/23 Urine Culture - Final, Complete NO GROWTH Home Meds Active Senna (Sennosides) 8.6 Mg Tablet 8.6 Mg PO BID Warfarin Sodium 4 Mg Tablet 4 Mg PO MON, WED, FRI Aspirin 81 Mg Tab.chew 81 Mg PO HS Vitamin B-12 (Cyanocobalamin (Vitamin B-12)) 1,000 Mcg Capsule 1,000 Mcg PO HS Tramadol HCl 50 Mg Tablet 50 Mg PO Q8H PRN Ocuvite Adult 50 Plus Softgel (Mv-Mn/Om3/Dha/Epa/Fish/Lut/Justine) 250 Mg (90 Mg-160 Mg)-5 Mg-1 Mg Capsule 1 Each PO DAILY Multivitamin 1 Each Tablet 1 Each PO DAILY Calcium (Calcium Carbonate) 600 Mg Calcium (1500 Mg) Tablet 600 Mg PO DAILY Omeprazole 20 Mg Capsule.dr 20 Mg PO HS Potassium Chloride 10 Meq Tab.er.prt 10 Meq PO BID Oxybutynin Chloride 5 Mg Tablet 5 Mg PO BID Lovastatin 20 Mg Tablet 20 Mg PO HS Citalopram HBr (Citalopram Hydrobromide) 20 Mg Tablet 20 Mg PO HS Amlodipine Besylate 10 Mg Tablet 10 Mg PO DAILY Metoprolol Succinate 200 Mg Tab.er.24h 200 Mg PO HS Warfarin Sodium 2 Mg Tablet 2 Mg PO ALYCIA SOLIS TUES, THUR Reported Levofloxacin 500 Mg Tablet 500 Mg PO DAILY FILLED 04-25-2023 #7 DAY SUPPLY Hydrochlorothiazide 25 Mg Tablet 25 Mg PO DAILY Assessment/Pt Instructions PCP 1 week Discharge Planning: <30 minutes discharge planning Discharge Instructions Discharge Diet: No Restrictions Discharge Physical Examination Vital Signs Vital Signs Date Time Temp Pulse Resp B/P (MAP) Pulse Ox O2 Delivery O2 Flow Rate FiO2 05/03/23 08:00 Room Air 05/03/23 07:26 36.2 68 16 164/79 (107) 96 05/03/23 03:37 2.00 2.00 General Appearance: No Apparent Distress, WD/WN, Chronically ill Respiratory: Lungs Clear, Normal Breath Sounds Cardiovascular: Irregularly Irregular Neurologic/Psychiatric: Alert, Oriented x3, No Motor/Sensory Deficits, Normal Mood/Affect Allergies: Coded Allergies: amoxicillin (Verified Allergy, Unknown, 04/28/23) penicillin G (Verified Allergy, Unknown, 05/30/19) Discharge Summary Date of Admission Apr 28, 2023 at 15:55 Date of Discharge Discharge Date: May 03, 2023 Admission Diagnosis 1. Severe hyponatremia suspect may be related to poor p.o. intake and thiazide diuretic therapy especially in light of the fact that there is been a significant improvement. I am concerned with the multiple blood pressure medications that she takes and the fact that it is now been about 36 hours since her last dose of high-dose metoprolol and her heart rate is only in the 60s that hypotension or symptomatic bradycardia may have been contributing to weakness as well and suspect possible underlying sick sinus syndrome. We will be holding thiazide diuretic therapy as well as metoprolol resuming the latter if she is developing significant tachycardia. 2. Persistent atrial fibrillation with multiple falls hematoma risk of discussed that while stopping anticoagulant therapy would increase her stroke risk she has an even higher risk of intracranial hemorrhage from falls and so for now we will hold Coumadin for which the patient is agreeable. 3. Advanced age multifactorial frailty with deconditioning significant patient is amenable to nursing home placement in [place]. 4. Possible hemorrhagic cystitis patient's temperature is mildly elevated 37.6 will initiate Rocephin. Patient has possible allergic reaction to penicillin but is not anaphylactic and she has been on cephalexin without evidence for allergic reaction in the past. Culture pending. Complex medical management. Discharge Diagnosis MARCELINA VARGAS DO May 03, 2023 09:44
--- NOTE | 2023-05-03 10:40 | Occupational Ther Daily Note ---
OT Current Status-Daily Note Subjective Anticipating going to [facility] re[facility] this date. Pain Numeric Pain Scale: 3 (head) Mental Status/Objective Patient Orientation: Person, Place, Time, Situation ADL-Treatment Ambulation to bathroom for toileting , hand hygiene and hair grooming w/ FWW CGA Therapy Code Descriptions/Definitions Functional Grimes Measure: 0=Not Assessed/NA 4=Minimal Assistance 1=Total Assistance 5=Supervision or Setup 2=Maximal Assistance 6=Modified Grimes 3=Moderate Assistance 7=Complete IndependenceSCALE: Activities may be completed with or without assistive devices. 8-Mrenqhyvod-hczwshr completes the activity by him/herself with no assistance from a helper. 5-Set-up or Clean-up Assistance-helper sets up or cleans up; patient completes activity. Regina assists only prior to or following the activity. 4-Supervision or Touching Assistance-helper provides verbal cues and/or touching/steadying and/or contact guard assistance as patient completes activity. Assistance may be provided throughout the activity or intermittently. 3-Partial/Moderate Assistance-helper does LESS THAN HALF the effort. Regina lifts, holds or supports trunk or limbs, but provides less than half the effort. 2-Substantial/Maximal Assistance-helper does MORE THAN HALF the effort. Regina lifts or holds trunk or limbs and provides more than half the effort. 3-Uanhbfdjl-kntddi does ALL the effort. Patient does none of the effort to complete the activity. Or, the assistance of 2 or more helpers is required for the patient to complete the activity. If activity was not attempted, code reason: 7-Patient Refused. 9-Not Applicable-not attempted and the patient did not perform the activity before the current illness, exacerbation or injury. 10-Not Attempted due to Environmental Limitations-(lack of equipment, weather restraints, etc.). 88-Not Attempted due to Medical Conditions or Safety Concerns. Eating (QC): 6 Oral Hygiene (QC): 5 Toileting Hygiene (QC): 5 Toilet Transfer (QC): 4 Education OT Patient Education: Correct positioning, Modified ADL techniques, Progress toward Goal/Update tx plan, Purpose of tx/functional activities, Reviewed precautions, Rehab process, Safety issues, Transfer techniques, Use of adapted equipment Teaching Recipient: Patient Teaching Methods: Demonstration, Discussion Response to Teaching: Verbalize Understanding, Reinforcement Needed OT Usp Goals Usp Goals Time Frame: May 05, 2023 Eating (QC): 6 Oral Hygiene (QC): 6 Toileting Hygiene (QC): 6 Shower/Bathe Self (QC): 6 Upper Body Dressing (QC): 6 Lower Body Dressing (QC): 6 On/Off Footwear (QC): 6 Additional Goals: 1-Demonstrate ADL Tasks, 2-Verbalize Understanding, 3- ImproveStrength/Guzman 1=Demonstrate adherence to instructed precautions during ADL tasks. 2=Patient will verbalize/demonstrate understanding of assistive devices/modifications for ADL. 3=Patient will improve strength/tolerance for activity to enable patient to perform ADL's. OT Education/Plan Problem List/Assessment Assessment: Decreased Activ Tolerance, Decreased Safety Aware, Impaired Coordination, Impaired Self-Care Skills Discharge Recommendations Plan/Recommendations: Continue POC Treatment Plan/Plan of Care Treatment,Training & Education: Yes Patient would benefit from OT for education, treatment and training to promote independence in ADL's, mobility, safety and/or upper extremity function for ADL's. Plan of Care: ADL Retraining, Functional Mobility, UE Funct Exercise/Act Treatment Duration: May 05, 2023 Frequency: 3 times per week (3-5 times a week) Estimated Hrs Per Day: .25 hour per day Agreement: Yes Rehab Potential: Fair Time Start Time: 09:47 Stop Time: 10:00 DATE: May 03, 2023 Total Time Billed (hr/min): 13 Billed Treatment Time ADL 13 min TOM DIAZ OT May 03, 2023 10:40
[2023-05-03 11:10] VITALS: BP 126/62
--- NOTE | 2023-05-03 12:34 | Progress Note ---
SMOOTH OLIVEIRA 05/03/23 1234: Progress Note Dorita Vora is a 88 year old female with a past medical history of atrial fibrillation anticoagulated on Coumadin, HTN, hyperlipidemia, and CHF. She presented to the hospital by EMS of 04/28 and admitted for pain management of her hip pain. She had a history of several falls and generalized weakness over previous few weeks prior to admission. Her labs at the time of admission were significant for anemia with hgb of 9.5, severe hyponatremia of 123, and hypokalemia of 3.2. She was also having hematuria on admission and her INR was supratherapeutic at 3.5 and her Coumadin was temporarily held. She was being prepared for discharge but on 05/01 was moved to the ICU for being in atrial fibrillation with RVR. She was placed on a diltiazem drip which was soon after discontinued the same day and she was restarted on her at home 200mg Toprol and cardiology was monitoring her. Her heart rate has since been controlled and is now at 68 bpm on 05/03. She is no longer having any genitourinary symptoms. Her Coumadin was restarted on 05/02 at an INR of 1.8. Her sodium and potassium were both corrected and are 137 and 4.2, respectively on her day of discharge 05/03 and she admits improvement in her generalized weakness. LU VARGAS DO 05/03/23 2007: Supervisory-Addendum Brief Verification & Attestation Participated in pt care: history, MDM, physical Personally performed: exam, history, MDM, supervision of care Care discussed with: Medical Student Procedures: n/a Results interpretation: Verified all documentation Verification and Attestation of Medical Student E/M Service A medical student performed and documented this service in my presence. I reviewed and verified all information documented by the medical student and made modifications to such information, when appropriate. I personally performed the physical exam and medical decision making. Lu Vargas, May 03, 2023,20:07 SMOOTH OLIVEIRA May 03, 2023 12:34 LU VARGAS DO May 03, 2023 20:07
--- NOTE | 2023-05-03 15:04 | Physical Therapy Daily Note ---
PT Daily Note-Current Subjective Patient sitting in chair upon PT arrival, agreeable to treatment. Patient rates pain at 0/10. Pain Section J - Health Conditions 1. Rarely or not at all 2. Occasionally 3. Frequently 4. Almost constantly 8. Unable to answer Pain Effect on Sleep: 1 Pain Interference with Therapy: 1 Pain Interference w/Day-to-Day: 1 Transfers SCALE: Activities may be completed with or without assistive devices. 6-Zdyxuobpjv-fcbryry completes the activity by him/herself with no assistance from a helper. 5-Set-up or Clean-up Assistance-helper sets up or cleans up; patient completes activity. Nemo assists only prior to or following the activity. 4-Supervision or Touching Assistance-helper provides verbal cues and/or touching/steadying and/or contact guard assistance as patient completes activity. Assistance may be provided throughout the activity or intermittently. 3-Partial/Moderate Assistance-helper does LESS THAN HALF the effort. Nemo lifts, holds or supports trunk or limbs, but provides less than half the effort. 2-Substantial/Maximal Assistance-helper does MORE THAN HALF the effort. Nemo lifts or holds trunk or limbs and provides more than half the effort. 2-Marzykaac-jzgpnt does ALL the effort. Patient does none of the effort to complete the activity. Or, the assistance of 2 or more helpers is required for the patient to complete the activity. If activity was not attempted, code reason: 7-Patient Refused. 9-Not Applicable-not attempted and the patient did not perform the activity before the current illness, exacerbation or injury. 10-Not Attempted due to Environmental Limitations-(lack of equipment, weather restraints, etc.). 88-Not Attempted due to Medical Conditions or Safety Concerns. Sit to Stand (QC): 4 Chair/Rxr-ig-Lurbt Xfer(QC): 4 Gait Training Does the Patient Walk?: Yes Distance: 350' Walk 10 feet (QC): 4 Walk 50 ft with 2 Turns(QC): 4 Walk 150 ft (QC): 4 Gait Assistive Device: FWW Assessment Current Status: Fair Progress Patient tolerated treatment well. Patient performs all observed transfers with SBA. Patient ambulates 350' with FWW, with SBA and verbal cues for progression and safety. Patient in chair post treatment with all needs met, nursing notified, and call light in hand. PT Half-Way Goals Manager Telemetry Goals PT Manager Telemetry Goals Time Frame: May 13, 2023 Roll Left & Right (QC): 6 Sit to Lying (QC): 6 Lying-Sitting on Side/Bed(QC): 6 Sit to Stand (QC): 6 Chair/Afn-hb-Fcuuq Xfer(QC): 6 Toilet Transfer (QC): 6 Walk 10 feet (QC): 6 Walk 50ft with 2 Turns (QC): 6 Walk 150 ft (QC): 6 1 Step (curb) (QC): 4 4 Steps (QC): 4 PT Plan Treatment/Plan Treatment Plan: Continue Plan of Care Treatment Plan: Education, Functional Activity Guzman, Functional Strength, Gait, Safety, Therapeutic Exercise, Transfers Treatment Duration: May 13, 2023 Frequency: 6 times per week Estimated Hrs Per Day: .25 hour per day Patient and/or Family Agrees t: Yes Safety Risks/Education Patient Education: Gait Training, Transfer Techniques Teaching Methods: Demonstration, Discussion Response to Teaching: Verbalize Understanding, Return Demonstration Time Time In: 1034 Time Out: 1045 DATE: May 03, 2023 Total Billed Treatment Time: 11 Total Billed Treatment Visit, GT HERMILO HORTON PT May 03, 2023 15:04
[2023-05-03] MEDS ORDERED: warFARin 3 MG (COUMADIN) TAB PO SCH (18:00)
== END 2023-05-03 14:20 | DRG 641 ==
LOC: EDUNIT# 13:08 → ER FS 13:09 → 4TH 15:55 → ICU 05-01 17:57 → 4TH 05-02 14:20
PROVIDERS: ADMIT Internal Medicine; ATTEND Internal Medicine
DX: E87.1 Hypo-osmolality and hyponatremia (principal); I48.19 Other persistent atrial fibrillation; E87.6 Hypokalemia; D64.9 Anemia, unspecified; R31.9 Hematuria, unspecified; Z79.01 Long term (current) use of anticoagulants; E78.00 Pure hypercholesterolemia, unspecified; I50.9 Heart failure, unspecified; I11.0 Hypertensive heart disease with heart failure; S30.0XXA Contusion of lower back and pelvis, initial encounter; W18.30XA Fall on same level, unspecified, initial encounter; T45.515A Adverse effect of anticoagulants, initial encounter
CPT/HCPCS: 36415; 80048; 80053; 81000; 83735; 84100; 85025; 85610; 85730; 87081; 87088; 93005

== ENCOUNTER 2023-07-29 17:05 | Emergency (ER) | payer MEDICARE, OTHER ==
[~2023-07-29] VITALS: Ht 160 cm; Wt 67.0 kg
[~2023-07-29 17:05] MED LIST changes: +ASPI-999 PO; +CYAN-23 PO; +LEVO-55 PO; -OXYB5TAB13 PO; +OXYB5TAB14 PO; +SENN-234 PO; +WARF4TAB3 PO
--- NOTE | 2023-07-29 17:12 | ED General ---
General Chief Complaint: General Problems/Pain Stated Complaint: GEN WEAKNESS, HEMATURIA; DIZZINESS History of Present Illness Date Seen by Provider: Jul 29, 2023 Time Seen by Provider: 17:12 Initial Comments 88-year-old female presents with just some generalized weakness for the but is worse today. Feels little dizzy. Patient been dealing with chronic UTIs and reports that she feels like she has little bit more blood in her urine than normal. No reports of fever or chills. She reports she has an appointment with a urologist but not until the . Allergies and Home Medications Allergies Coded Allergies: amoxicillin (Verified Allergy, Unknown, 04/28/23) penicillin G (Verified Allergy, Unknown, 05/30/19) Patient Home Medication List Home Medication List Reviewed: Yes Amlodipine Besylate (Amlodipine Besylate) 10 Mg Tablet, 10 MG PO DAILY Prescribed by: MARCELINA VARGAS on 05/03/23941 Aspirin (Aspirin) 81 Mg Tab.chew, 81 MG PO HS Prescribed by: MARCELINA VARGAS on 05/03/23941 Calcium Carbonate (Calcium) 600 Mg Calcium (1500 Mg) Tablet, 600 MG PO DAILY Prescribed by: MARCELINA VARGAS on 05/03/23941 Citalopram Hydrobromide (Citalopram HBr) 20 Mg Tablet, 20 MG PO HS Prescribed by: MARCELINA VARGAS on 05/03/23941 Cyanocobalamin (Vitamin B-12) (Vitamin B-12) 1,000 Mcg Capsule, 1,000 MCG PO HS Prescribed by: MARCELINA VARGAS on 05/03/23941 Lovastatin (Lovastatin) 20 Mg Tablet, 20 MG PO HS Prescribed by: MARCELINA VARGAS on 05/03/23941 Metoprolol Succinate (Metoprolol Succinate) 200 Mg Tab.er.24h, 200 MG PO HS Prescribed by: MARCELINA VARGAS on 05/03/23941 Multivitamin (Multivitamin) 1 Each Tablet, 1 EACH PO DAILY Prescribed by: MARCELINA VARGAS on 05/03/23941 Mv-Mn/Om3/Dha/Epa/Fish/Lut/Justine (Ocuvite Adult 50 Plus Softgel) 250 Mg (90 Mg-160 Mg)-5 Mg-1 Mg Capsule, 1 EACH PO DAILY Prescribed by: MARCELINA VARGAS on 05/03/23941 Omeprazole (Omeprazole) 20 Mg Capsule.dr, 20 MG PO HS Prescribed by: MARCELINA VARGAS on 05/03/23941 Oxybutynin Chloride (Oxybutynin Chloride) 5 Mg Tablet, 5 MG PO BID Prescribed by: MARCELINA VARGAS on 05/03/23941 Potassium Chloride (Potassium Chloride) 10 Meq Tab.er.prt, 10 MEQ PO BID Prescribed by: MARCELINA VARGAS on 05/03/23941 Sennosides (Senna) 8.6 Mg Tablet, 8.6 MG PO BID Prescribed by: MARCELINA VARGAS on 05/03/23941 Tramadol HCl (Tramadol HCl) 50 Mg Tablet, 50 MG PO Q8H PRN for PAIN Prescribed by: MARCELINA VARGAS on 05/03/23942 Warfarin Sodium (Warfarin Sodium) 2 Mg Tablet, 2 MG PO Sat, Sun, Tues, Thur Prescribed by: MARCELINA VARGAS on 05/03/23941 Warfarin Sodium (Warfarin Sodium) 4 Mg Tablet, 4 MG PO Mon, Wed, Fri Prescribed by: MARCELINA VARGAS on 05/03/23941 Review of Systems Review of Systems Constitutional: dizziness, malaise, weakness Respiratory: no symptoms reported Cardiovascular: no symptoms reported Gastrointestinal: no symptoms reported Genitourinary: see HPI, hematuria Musculoskeletal: no symptoms reported Skin: no symptoms reported Psychiatric/Neurological: No Symptoms Reported Past Egpjaxm-Aytfkr-Jhtbjz Hx Seasonal Allergies Seasonal Allergies: No Past Medical History Surgery/Hospitalization HX: A-Fib GB Surgeries: Yes Gallbladder Respiratory: No Cardiac: Yes Atrial Fibrillation, High Cholesterol, Hypertension Neurological: No Genitourinary: No Gastrointestinal: No Musculoskeletal: No Endocrine: No HEENT: No Cancer: No Psychosocial: No Integumentary: No Blood Disorders: No Family Medical History No Pertinent Family Hx Physical Exam Vital Signs Vital Signs - First Documented 07/29/23 17:22 Temp 33.8 Pulse 67 Resp 16 B/P (MAP) 146/78 (100) Pulse Ox 97 O2 Delivery Room Air Capillary Refill : Height, Weight, BMI Height: '" Weight: lbs. oz. kg; 26.74 BMI Method: General Appearance: No Apparent Distress, WD/WN Respiratory: Lungs Clear, Normal Breath Sounds Cardiovascular: Regular Rate, Rhythm Gastrointestinal: Non Tender, Soft Extremity: Normal Capillary Refill Neurologic/Psychiatric: Alert, Oriented x3, No Motor/Sensory Deficits Progress/Results/Core Measures Suspected Sepsis SIRS Temperature: Pulse: Respiratory Rate: Laboratory Tests 07/29/23 17:19: White Blood Count 5.9 Blood Pressure / Mean: Laboratory Tests 07/29/23 17:19: Creatinine 0.75, Platelet Count 249, Total Bilirubin 0.5 Results/Orders Lab Results Laboratory Tests Test 07/29/23 17:19 07/29/23 18:05 Range/Units White Blood Count 5.9 4.3-11.0 10^3/uL Red Blood Count 4.18 3.80-5.11 10^6/uL Hemoglobin 11.4 L 11.5-16.0 g/dL Hematocrit 37 35-52 % Mean Corpuscular Volume 90 80-99 fL Mean Corpuscular Hemoglobin 27 25-34 pg Mean Corpuscular Hemoglobin Concent 31 L 32-36 g/dL Red Cell Distribution Width 14.8 H 10.0-14.5 % Platelet Count 249 130-400 10^3/uL Mean Platelet Volume 11.1 9.0-12.2 fL Immature Granulocyte % (Auto) 0 % Neutrophils (%) (Auto) 58 42-75 % Lymphocytes (%) (Auto) 31 12-44 % Monocytes (%) (Auto) 10 0-12 % Eosinophils (%) (Auto) 1 0-10 % Basophils (%) (Auto) 0 0-10 % Neutrophils # (Auto) 3.4 1.8-7.8 10^3/uL Lymphocytes # (Auto) 1.8 1.0-4.0 10^3/uL Monocytes # (Auto) 0.6 0.0-1.0 10^3/uL Eosinophils # (Auto) 0.1 0.0-0.3 10^3/uL Basophils # (Auto) 0.0 0.0-0.1 10^3/uL Immature Granulocyte # (Auto) 0.0 0.0-0.1 10^3/uL Sodium Level 133 L 135-145 MMOL/L Potassium Level 3.7 3.6-5.0 MMOL/L Chloride Level 95 L 98-107 MMOL/L Carbon Dioxide Level 26 21-32 MMOL/L Anion Gap 12 5-14 MMOL/L Blood Urea Nitrogen 16 7-18 MG/DL Creatinine 0.75 0.60-1.30 MG/DL Estimat Glomerular Filtration Rate 77 BUN/Creatinine Ratio 21 Glucose Level 96 70-105 MG/DL Calcium Level 9.9 8.5-10.1 MG/DL Corrected Calcium 9.9 8.5-10.1 MG/DL Magnesium Level 2.0 1.6-2.4 MG/DL Total Bilirubin 0.5 0.1-1.0 MG/DL Aspartate Amino Transf (AST/SGOT) 24 5-34 U/L Alanine Aminotransferase (ALT/SGPT) 9 0-55 U/L Alkaline Phosphatase 95 40-136 U/L Total Protein 7.6 6.4-8.2 GM/DL Albumin 4.0 3.2-4.5 GM/DL Urine Color YELLOW Urine Clarity CLOUDY Urine pH 6.5 5-9 Urine Specific Coden <=1.005 1.016-1.022 Urine Protein NEGATIVE NEGATIVE Urine Glucose (UA) NEGATIVE NEGATIVE Urine Ketones NEGATIVE NEGATIVE Urine Nitrite NEGATIVE NEGATIVE Urine Bilirubin NEGATIVE NEGATIVE Urine Urobilinogen 0.2 < = 1.0 MG/DL Urine Leukocyte Esterase TRACE H NEGATIVE Urine RBC (Auto) 3+ H NEGATIVE Urine RBC TNTC H /HPF Urine WBC /HPF Urine Crystals NONE /LPF Urine Bacteria /HPF Urine Casts NONE /LPF Urine Mucus NEGATIVE /LPF Urine Culture Indicated YES My Orders Orders - JASWINDER FLORES DO Cbc And Automated Diff (07/29/23 17:24) Comprehensive Metabolic Panel (07/29/23 17:24) Magnesium (07/29/23 17:24) Ua Culture If Indicated (07/29/23 17:24) Ed Iv/Invasive Line Start (07/29/23 17:24) Ns Iv 500 Ml (Ns Iv 500 Ml) (07/29/23 17:30) Urine Culture (07/29/23 18:05) Medications Given in ED Current Medications Medications Dose Ordered Sig/Maranda Route Start Time Stop Time Status Last Admin Dose Admin Sodium Chloride 500 ml @ 0 mls/hr Q0M ONCE IV 07/29/23 17:30 07/29/23 17:31 DC 07/29/23 17:32 999 MLS/HR Vital Signs/I&O 07/29/23 17:22 Temp 33.8 Pulse 67 Resp 16 B/P (MAP) 146/78 (100) Pulse Ox 97 O2 Delivery Room Air Capillary Refill : Progress Note : Progress Note Patient's diagnostics as ordered reviewed and interpreted by me. Patient shows no signs of an acute urinary tract infection which was her concern at this time. She does have that hematuria that is persistent but does have an appointment on 08/09/2023 with a urologist which I encouraged her to keep. Recommend she drinks plenty of fluids, she may take Azo as needed. She should follow with her primary care provider with any further concerns or if she develops some flank pain. She is stable and discharged home. Departure Impression Primary Impression: Hematuria Qualified Codes: R31.9 - Hematuria, unspecified Disposition: HOME, SELF-CARE Condition: Stable Departure-Patient Inst. Referrals: ARVIND WEINSTEIN MD (PCP/Family) Primary Care Physician Patient Instructions: Blood in the Urine (Hematuria), Adult (DC) Add. Discharge Instructions: Drink plenty of fluids. You may use Azo as needed for discomfort. Please keep your appointment with your urologist. Follow-up with your primary care provider with any worsening of symptoms for recheck. All discharge instructions reviewed with patient and/or family. Voiced understanding. JASWINDER FLORES DO Jul 29, 2023 17:12
[2023-07-29 17:22] VITALS: BP 146/78
[2023-07-29 17:28] LABS: BASOPHILS % (AUTO) 0 % (0-10); EOSINOPHILS # (AUTO) 0.1 10^3/uL (0.0-0.3); EOSINOPHILS % (AUTO) 1 % (0-10); HEMATOCRIT 37 % (35-52); HEMOGLOBIN 11.4 g/dL (11.5-16.0); LYMPHOCYTES # (AUTO) 1.8 10^3/uL (1.0-4.0); LYMPHOCYTES % (AUTO) 31 % (12-44); MEAN CORPUSCULAR HEMOGLOBIN 27 pg (25-34); MEAN CORPUSCULAR HGB CONC 31 g/dL (32-36); MEAN CORPUSCULAR VOLUME 90 fL (80-99); MEAN PLATELET VOLUME 11.1 fL (9.0-12.2); MONOCYTES # (AUTO) 0.6 10^3/uL (0.0-1.0); MONOCYTES % (AUTO) 10 % (0-12); NEUTROPHILS # (AUTO) 3.4 10^3/uL (1.8-7.8); NEUTROPHILS % (AUTO) 58 % (42-75); PLATELET COUNT 249 10^3/uL (130-400); WHITE BLOOD COUNT 5.9 10^3/uL (4.3-11.0)
[2023-07-29] MEDS ORDERED: NS IV 500 ML 500 ML IV ONE (17:30)
[2023-07-29 17:35] LABS: BILIRUBIN,TOTAL 0.5 MG/DL (0.1-1.0); CALCIUM 9.9 MG/DL (8.5-10.1); POTASSIUM 3.7 MMOL/L (3.6-5.0); TOTAL PROTEIN 7.6 GM/DL (6.4-8.2)
[2023-07-29 17:41] LABS: CREATININE SERUM 0.75 MG/DL (0.60-1.30)
[2023-07-29 18:15] LABS: BILIRUBIN,URINE NEGATIVE (NEGATIVE); COLOR,URINE YELLOW; GLUCOSE, URINE (UA) NEGATIVE (NEGATIVE); KETONES,URINE NEGATIVE (NEGATIVE); LEUKOCYTE ESTERASE ,URINE TRACE (NEGATIVE); NITRITE,URINE NEGATIVE (NEGATIVE); PH,URINE 6.5 (5-9); PROTEIN,URINE NEGATIVE (NEGATIVE)
[2023-07-29 18:20] LABS: CLARITY,URINE CLOUDY; RBC,URINE TNTC /HPF
== END 2023-07-29 18:47 | disposition home or self-care (01) ==
LOC: EDUNIT# 17:05 → ER FS 17:07
DX: R31.9 Hematuria, unspecified (principal)
CPT/HCPCS: 36415; 80053; 81000; 83735; 85025; 87088; 96360